=== PATIENT | male | born 1970 | race Caucasian/White ===

== ENCOUNTER → 2016-11-06 | Outpatient (CLI) | payer BC, OTHER ==
[~2016-11-06] MED LIST: ALLO100T PO; CARV25TA2 PO; CRDCD120 PO; GLCSR500 PO; INSDGIPEN SC; LISI-787 PO; RCPAV1 IV
[2016-11-06 12:59] LABS: HEMATOCRIT 40.8 % (42-52); MEAN CELL VOLUME 91.1 fL (80-100); MEAN CORPUSCULAR HGB CONC 34.1 g/dl (32-36); MEAN PLATELET VOLUME 9.6 fL (7.4-10.4); PLATELET COUNT 363 K/uL (130-400); RED BLOOD COUNT 4.48 M/uL (4.7-6.1); WHITE BLOOD COUNT 7.37 K/uL (4.8-10.8)
[2016-11-06 13:26] LABS: ALB/GLOB RATIO 0.5 (0.9-2); ALKALINE PHOSPHATASE 100 U/L (45-117); ALT/SGPT 40 U/L (12-78); AST/SGOT 31 U/L (15-37); BLOOD UREA NITROGEN 18 mg/dl (7-18); BUN/CREATININE RATIO 26.5 (10-20); C-REACTIVE PROTEIN 1.92 mg/dl (0-0.29); CALCIUM 8.7 mg/dl (8.5-10.1); CARBON DIOXIDE 25 mmol/L (21-32); CHLORIDE 100 mmol/L (98-107); CREATININE 0.66 mg/dl (0.60-1.40); GLUCOSE 218 mg/dl (70-99); POTASSIUM 4.4 mmol/L (3.5-5.1); SODIUM 135 mmol/L (136-145)
--- NOTE | 2016-11-07 12:55 | CODING QUERY NO DIAGNOSIS ---
TREATMENT RENDERED WITHOUT A DIAGNOSIS 72 To promote full compliance with coding requirements relating to patient care, physician participation is requested in all cases of admeasurer uncertainty. Please assist us with providing a diagnosis/symptom for the test(s) below: A diagnosis/symptom was not documented on your Order. A valid diagnosis/symptom is required to bill all insurances. Please remember that we are unable to code a diagnosis of rule out, probable, possible, questionable, or suspected. DOS 11/06/16 Tests that require a diagnosis: * CBC W/O DIFF DIAGNOSIS: * COMP METABOLIC DIAGNOSIS: * C-REACTIVE PROTEIN DIAGNOSIS: * ESR DIAGNOSIS: Provider Signature: Date: Thank you Taylor Lozada Health Information Management Once completed, please kindly fax back to [phone] For questions please call [phone]
== END | disposition home or self-care (01) ==
LOC: C.LABSPEC 12:19
PROVIDERS: ATTEND Internal Medicine Infectious Disease
DX: Z00.00 Encounter for general adult medical examination without abnormal findings (principal)

== ENCOUNTER → 2016-11-12 | Outpatient (CLI) | payer BC, OTHER ==
[2016-11-12 13:18] LABS: HEMATOCRIT 40.8 % (42-52); MEAN CELL VOLUME 89.3 fL (80-100); MEAN CORPUSCULAR HEMOGLOBIN 30.2 pg (25-34); MEAN CORPUSCULAR HGB CONC 33.8 g/dl (32-36); MEAN PLATELET VOLUME 10.2 fL (7.4-10.4); PLATELET COUNT 281 K/uL (130-400); RED BLOOD COUNT 4.57 M/uL (4.7-6.1); WHITE BLOOD COUNT 8.69 K/uL (4.8-10.8)
[2016-11-12 13:38] LABS: ALKALINE PHOSPHATASE 97 U/L (45-117); ALT/SGPT 42 U/L (12-78); AST/SGOT 29 U/L (15-37); BLOOD UREA NITROGEN 13 mg/dl (7-18); BUN/CREATININE RATIO 22.4 (10-20); CALCIUM 8.5 mg/dl (8.5-10.1); CARBON DIOXIDE 26 mmol/L (21-32); CHLORIDE 100 mmol/L (98-107); GLUCOSE 208 mg/dl (70-99); SODIUM 136 mmol/L (136-145)
[2016-11-12 13:40] LABS: ALB/GLOB RATIO 0.7 (0.9-2); C-REACTIVE PROTEIN 1.05 mg/dl (0-0.29)
--- NOTE | 2016-11-23 13:53 | CODING QUERY NO DIAGNOSIS ---
: 1970 TREATMENT RENDERED WITHOUT A DIAGNOSIS To promote full compliance with coding requirements relating to patient care, physician participation is requested in all cases of auto customize painter uncertainty. Please assist us with providing a diagnosis/symptom for the test(s) below: A diagnosis/symptom was not documented on your Order. A valid diagnosis/symptom is required to bill all insurances. Please remember that we are unable to code a diagnosis of rule out, probable, possible, questionable, or suspected. Tests that require a diagnosis: * CBC W/O DIFF DOS: 11/12/16 DIAGNOSIS: * COMPREHENSIVE METABO DOS: 11/12/16 DIAGNOSIS: * C-REACTIVE PROTEIN DOS: 11/12/16 DIAGNOSIS: * ERYTHROCYTE SEDIMENT DOS: 11/12/16 DIAGNOSIS: Provider Signature: Date: Thank you Amy Pena [employer] Information Management Once completed, please kindly fax back to [phone] For questions please call [phone]
== END | disposition home or self-care (01) ==
LOC: C.LABSPEC 12:23
PROVIDERS: ATTEND Internal Medicine Infectious Disease
DX: A41.9 Sepsis, unspecified organism (principal); J18.9 Pneumonia, unspecified organism; B95.3 Streptococcus pneumoniae as the cause of diseases classified elsewhere

== ENCOUNTER → 2016-12-04 | Outpatient (CLI) | payer BC, OTHER ==
[2016-12-04 12:42] LABS: RATIO 116.7 mcg/mg (0-30.0)
== END | disposition home or self-care (01) ==
LOC: C.LAB1850 10:40
PROVIDERS: ATTEND Internal Medicine Endocrinology, Diabetes & Metabolism
DX: E11.65 Type 2 diabetes mellitus with hyperglycemia (principal)

== ENCOUNTER 2020-04-15 13:48 | Inpatient (IN) ==
[2020-04-15 14:26] LABS: Basophils # (auto) 0.02 K/uL (0-0.2); Basophils % (auto) 0.4 %; Eosinophils # (auto) 0.08 K/uL (0-0.5); Eosinophils % (auto) 1.4 %; Hematocrit (blood only) 57.4 % (42-52); Hemoglobin 17.9 g/dL (14.0-18.0); Immature Granulocytes # (auto) 0.01 K/uL (0.00-0.02); Immature Granulocytes % (auto) 0.2 %; Lymphocytes % (auto) 28.2 %; Mean Corpuscular Hemoglobin 31.3 pg (25-34); Mean Corpuscular Volume 100.3 fL (80-100); Mean Platelet Volume 10.3 fL (7.4-10.4); Monocytes # (auto) 0.73 K/uL (0.11-0.59); Monocytes % (auto) 12.9 %; Neutrophils # (auto) 3.23 K/uL (1.4-6.5); Neutrophils % (auto) 56.9 %; Platelet Count 159 K/uL (130-400); RDW Coefficient of Variation 14.7 % (11.5-14.5); Red Blood Count 5.72 M/uL (4.7-6.1); White Blood Count 5.67 K/uL (4.8-10.8)
[2020-04-15 14:35] LABS: Mean Corpuscular Hgb Conc 31.2 g/dL (32-36)
--- NOTE | 2020-04-15 14:50 | Emergency Department Note ---
Impression & Plan Hypoxia, CHF (congestive heart failure) ED Provider Note NAME: STARR LINDA AGE: 49 SEX: M : 1970 ARRIVES VIA: Walk-In INFORMANT: Patient ED PROVIDER(S): Harley Colon DO CHIEF COMPLAINT: Shortness of breath HPI: Patient is a 49-year-old male with a past medical history of hypertension, CVA that presents the ER for shortness of breath and swelling. He notes that the shortness of breath and swelling has started about 2 weeks ago. Has been getting progressively worse. He denies any history of CHF. He is more short of breath with laying down and movement. Notes that rest does improve his symptoms. He started Lasix about 2 weeks ago without significant improvement. He was referred in by his PCP today. Denies any other exacerbating or remitting factors. ROS: See above HPI for pertinent positives & negatives. A total of 10 systems reviewed and were otherwise negative. PAST MEDICAL HISTORY:See Below PAST SURGICAL HISTORY:See Below FAMILY HISTORY:See Below SOCIAL HISTORY:See Below HOME MEDICATIONS:See Below ALLERGIES:See Below VITALS:See Below PHYSICAL EXAMINATION: GENERAL: Sitting up in bed, alert, ill-appearing, dyspneic with conversation on 4 L nasal cannula EYE EXAM: normal conjunctiva. OROPHARYNX: no exudate, no erythema, lips, buccal mucosa, and tongue normal and mucous membranes are moist NECK: supple, no nuchal rigidity, no adenopathy, non-tender LUNGS: Clear to auscultation. Normal chest wall mechanics HEART: no murmurs, S1 normal and S2 normal ABDOMEN: abdomen soft, non-tender, normo-active bowel sounds, no masses, no rebound or guarding. BACK: Back is symmetrical on inspection and there is no deformity, no midline tenderness, no CVA tenderness. SKIN: no rashes and no bruising UPPER EXTREMITIES: upper extremities are grossly normal. LOWER EXTREMITIES: Pitting edema tracking through bilateral lower extremities up to abdomen NEURO EXAM: Normal sensorium, cranial nerves II-XII grossly intact, normal speec h, no gross weakness of arms, no gross weakness of legs. MEDICAL DECISION MAKING: Patient is a 49-year-old male that presents the ER for shortness of breath. This is been worsening for the past 2 weeks. On exam he has diffuse pitting edema. He is hypoxic at 84% on room air. He was placed on 4 L nasal cannula. Labs show no significant leukocytosis or anemia. INR was unremarkable. BMP with a slightly elevated CO2 at 39. LFTs bilirubin and troponin was negative. proBNP was elevated at 1100.. Lipase and TSH were unremarkable. Chest x-ray with a likely hiatal hernia and CHF. Patient was given IV Lasix. He was updated bedside. Discussed with the hospitalist admitted for further work-up of his hypoxia and CHF. Triage Nursing notes reviewed. Prior medical records reviewed Vital Signs: reviewed and remarkable for hypoxia Differential diagnosis: Differential diagnoses includes but is not limited to pneumonia, bronchitis, COPD/Asthma exacerbation, pneumothorax, pulmonary embolism, congestive heart f ailure, acute coronary syndrome ER treatment provided: See below Diagnostics interpreted by me: ECG: Sinus rhythm rate 85 First-degree AV block Inferior Q waves No PVCs Lateral Q waves Normal QTC Cardiac Monitoring: An order was placed for continuous cardiac monitoring. The monitor shows a rate of 89 with sinus rhythm. Laboratory studies: As stated above and show below. Imaging studies: Double AP upright 1 view of the chest shows hiatal hernia and CHF. Consultation(s): Discussed with [facility] hospitalist for admission. ED COURSE: Procedures: none Critical Care: I have personally spent 45 minutes of critical care time in the direct management of this patient. This includes bedside care, interpretation of diagnostic studies, and testing, discussion with consultants, patient, and family members, and other required patient management activities. This 45 minutes is in excess of all separately billable procedures. Past Med/Surg History Medical History (Updated 04/15/20 @ 19:22 by Harley Colon DO) Alcohol abuse CVA (cerebral vascular accident) (Chronic) DM type 2 (diabetes mellitus, type 2) (Chronic) Dysphagia (Chronic) Gout (Chronic) HTN (hypertension) Hypertension (Chronic) Vertebral artery stenosis (Chronic) Surgical History History of carpal tunnel surgery History of lung surgery History of total left knee replacement Family History (Updated 04/15/20 @ 16:04 by Jayla Gilbert PA-C) Sister Stroke Mother Myocardial infarction, Onset Age: 70 Diabetes Father Myocardial infarction Diabetes Social History (Updated 04/15/20 @ 16:04 by Jayla Gilbert PA-C) Preferred Language: Upper Sorbian Communication Ability: Effective Visual Impairment: Limited Convenience Store Manager Required: No Beliefs That Will Affect Care: None marital status: Current Living Situation: Spouse and Family Other Information That Helps Us Care for You: No Feels Safe at Home: Yes Safety Concerns: Feels Safe At This Time Smoking Status: Never smoker Tobacco Type: cigars ; Second Hand Exposure: No ; Hx Alcohol Use: Yes (None since stroke about 3 weeks ago) Alcohol type: beer Alcohol Intake Frequency: Daily Hx Substance Use: No Allergies Allergies Allergy/AdvReac Type Severity Reaction Status Date / Time No Known Allergies Allergy Verified 04/15/20 15:14 Home Meds Home Medications Medication Instructions Recorded Confirmed Lantus Solostar U-100 Insulin 60 unit SUBCUT BID 08/22/18 04/15/20 insulin aspart U-100 [Novolog See Rx Instructions .ROUTE .COMPLEX 09/10/18 04/15/20 Flexpen U-100 Insulin] metformin 1,000 mg PO BIDM 09/10/18 04/15/20 Jardiance 25 mg PO QAM 12/24/18 04/15/20 atorvastatin [Lipitor] 80 mg PO HS 12/24/18 04/15/20 carvedilol 12.5 mg PO BID 12/24/18 04/15/20 clopidogrel [Plavix] 75 mg PO QAM 12/24/18 04/15/20 allopurinol 300 mg PO QAM 04/15/20 04/15/20 furosemide 40 mg PO QAM 04/15/20 04/15/20 insulin aspart U-100 See Rx Instructions .ROUTE .COMPLEX 04/15/20 04/15/20 lisinopril 20 mg PO QAM 04/15/20 04/15/20 potassium chloride 10 meq PO QAM 04/15/20 04/15/20 Results & Data (ED) Vital Signs Vital Signs - 24 hr 04/15/20 13:49 04/15/20 14:21 Temperature 36.9 C Temperature Source Oral Pulse Rate 88 Respiratory Rate 22 Respiratory Effort / Characteristics Non-Labored Spontaneous Respiratory Depth Normal Respiratory Pattern Regular Blood Pressure 133/89 Blood Pressure Mean 103 Blood Pressure Position Lying Pulse Oximetry 83 L 83 L Oxygen Delivery Method Room Air Room Air Nasal Cannula Oxygen Flow Rate 3 Sepsis Recent Fever Within 48 Hours No Sepsis New/Unexplained Change in Mental Status No Sepsis Action Taken by Nursing No Action Required Oxygen Flow Rate - Titration 3 Pulse Oximetry Post Tiitration 98 Laboratory Data Result diagrams: 04/15/20 14:15 04/15/20 14:15 Lab Results 04/15/20 04/15/20 04/15/20 Range/Units 14:15 14:15 14:15 WBC 5.67 (4.8-10.8) K/uL RBC 5.72 (4.7-6.1) M/uL Hgb 17.9 (14.0-18.0) g/dL Hct 57.4 H (42-52) % MCV 100.3 H (80-100) fL MCH 31.3 (25-34) pg MCHC 31.2 L (32-36) g/dL RDW Std Deviation 54.0 H (36.4-46.3) fL RDW Coeff of Antoni 14.7 H (11.5-14.5) % Plt Count 159 (130-400) K/uL MPV 10.3 (7.4-10.4) fL Immature Gran % (Auto) 0.2 % Neut % (Auto) 56.9 % Lymph % (Auto) 28.2 % [place] % (Auto) 12.9 % Eos % (Auto) 1.4 % Baso % (Auto) 0.4 % Immature Gran # (Auto) 0.01 (0.00-0.02) K/uL Neut # (Auto) 3.23 (1.4-6.5) K/uL Lymph # (Auto) 1.60 (1.2-3.4) K/uL [place] # (Auto) 0.73 H (0.11-0.59) K/uL Eos # (Auto) 0.08 (0-0.5) K/uL Baso # (Auto) 0.02 (0-0.2) K/uL PT Cancelled INR Cancelled APTT Cancelled PTT Ratio Cancelled Sodium 138 (136-145) mmol/L Potassium 4.7 (3.5-5.1) mmol/L Chloride 96 L (98-107) mmol/L Carbon Dioxide 39 H (21-32) mmol/L Anion Gap 4.0 (3-11) BUN 23 H (7-18) mg/dl Creatinine 0.88 (0.6-1.4) mg/dl Est Cr Clr Drug Dosing 138.9 ml/min Est GFR ( Amer) 117.7 Est GFR (Non-Af Amer) 101.6 BUN/Creatinine Ratio 26.7 H (10-20) Glucose 158 H (70-99) mg/dl Calcium 9.0 (8.5-10.1) mg/dl Total Bilirubin 0.3 (0.2-1) mg/dl AST 49 H (15-37) U/L ALT 70 (12-78) U/L Alkaline Phosphatase 107 (45-117) U/L Troponin I < 0.015 (0-0.045) ng/ml NT-Pro-B Natriuret Pep 1132 H (0-450) pg/ml Total Protein 6.9 (6.4-8.2) gm/dl Albumin 3.0 L (3.4-5.0) gm/dl Globulin 3.9 (2.5-4.0) gm/dl Albumin/Globulin Ratio 0.8 L (0.9-2) Lipase 86 (73-393) U/L TSH 2.110 (0.300-4.500) uIu/ml Specimen Hemolysis 04/15/20 Range/Units 14:50 WBC (4.8-10.8) K/uL RBC (4.7-6.1) M/uL Hgb (14.0-18.0) g/dL Hct (42-52) % MCV (80-100) fL MCH (25-34) pg MCHC (32-36) g/dL RDW Std Deviation (36.4-46.3) fL RDW Coeff of Antoni (11.5-14.5) % Plt Count (130-400) K/uL MPV (7.4-10.4) fL Immature Gran % (Auto) % Neut % (Auto) % Lymph % (Auto) % [place] % (Auto) % Eos % (Auto) % Baso % (Auto) % Immature Gran # (Auto) (0.00-0.02) K/uL Neut # (Auto) (1.4-6.5) K/uL Lymph # (Auto) (1.2-3.4) K/uL [place] # (Auto) (0.11-0.59) K/uL Eos # (Auto) (0-0.5) K/uL Baso # (Auto) (0-0.2) K/uL PT 11.6 INR 1.1 APTT 22.8 PTT Ratio 0.8 Sodium (136-145) mmol/L Potassium (3.5-5.1) mmol/L Chloride (98-107) mmol/L Carbon Dioxide (21-32) mmol/L Anion Gap (3-11) BUN (7-18) mg/dl Creatinine (0.6-1.4) mg/dl Est Cr Clr Drug Dosing ml/min Est GFR ( Amer) Est GFR (Non-Af Amer) BUN/Creatinine Ratio (10-20) Glucose (70-99) mg/dl Calcium (8.5-10.1) mg/dl Total Bilirubin (0.2-1) mg/dl AST (15-37) U/L ALT (12-78) U/L Alkaline Phosphatase (45-117) U/L Troponin I (0-0.045) ng/ml NT-Pro-B Natriuret Pep (0-450) pg/ml Total Protein (6.4-8.2) gm/dl Albumin (3.4-5.0) gm/dl Globulin (2.5-4.0) gm/dl Albumin/Globulin Ratio (0.9-2) Lipase (73-393) U/L TSH (0.300-4.500) uIu/ml Specimen Hemolysis Administered Medications Carvedilol (Coreg) 12.5 mg PO BID17 KATHRYN Stop: 05/15/20 17:59 Last Admin: 04/15/20 17:58 Dose: 12.5 mg Documented by: [id number] Insulin Aspart (Novolog Flexpen) 0 units SC ACHS KATHRYN Stop: 05/15/20 17:29 Last Admin: 04/15/20 17:57 Dose: 12 units Documented by: [id number] Cosigned by: [id number] Discontinued Medications Furosemide (Lasix) 40 mg IV NOW STA Stop: 04/15/20 15:30 Last Admin: 04/15/20 16:18 Dose: 40 mg Documented by: [id number] Discharge Plan Visit Data *Final* Discharge Date/Time: 04/15/20 16:13 Chief Complaint: Referred by Doctor Stated Complaint: REF - FILLED WITH FLUID - O2 AT 85 ED Provider: Harley Colon Discharge Problem: Hypoxia, CHF (congestive heart failure) Patient Disposition: Admitted As Inpatient Discharge Instructions Interventions: ED Discharge Assessment Last Done: 04/15/20 16:13 Discharge Problem: CHF (congestive heart failure) Qualifiers: Heart failure type: unspecified Heart failure chronicity: unspecified Qualified Code(s): I50.9 - Heart failure, unspecified
[2020-04-15 14:54] LABS: Alanine Aminotransferase 70 U/L (12-78); Albumin Globulin Ratio 0.8 (0.9-2); Alkaline Phosphatase 107 U/L (45-117); Aspartate Aminotransferase 49 U/L (15-37); BUN Creatinine Ratio 26.7 (10-20); Bilirubin,Total 0.3 mg/dl (0.2-1); Blood Urea Nitrogen 23 mg/dl (7-18); Carbon Dioxide 39 mmol/L (21-32); Chloride 96 mmol/L (98-107); Creatinine Clr Calc Pharmacy 138.9 ml/min; Est GFR (African American) 117.7; Est GFR (Non-African American) 101.6; Globulin 3.9 gm/dl (2.5-4.0); Glucose 158 mg/dl (70-99); Lipase 86 U/L (73-393); NT Pro B Type Natriuretic Pept 1132 pg/ml (0-450); Potassium 4.7 mmol/L (3.5-5.1); Sodium 138 mmol/L (136-145); Total Protein 6.9 gm/dl (6.4-8.2); Troponin I < 0.015 ng/ml (0-0.045)
--- NOTE | 2020-04-15 14:55 | XRay Report ---
XR chest 1V portable CLINICAL HISTORY: Chest pain. COMPARISON STUDY: September 10, 2018. FINDINGS: A gas-filled structure within left upper quadrant is noted. Lung volumes are diminished. Th ere is elevation of left hemidiaphragm with suspected left basilar atelectasis. Pulmonary vasculature is prominent. Enlargement of the cardiac silhouette is noted. This is accentuated on this hypoventil atory study. IMPRESSION: 1. Low lung volumes with suspected left basilar atelectasis. 2. Elevation of the left hemidiaphragm with prominent gas-filled structure within left upper quadrant which reflects the stomach or less likely colon. 3. Apparent pulmonary vascular congestion which could be technical. ACT 112: Negative or not required by law. Electronically signed by: Alejo Lord M.D. 04/15/2020 2:54 PM
[2020-04-15 15:14] LABS: INR 1.1 (0.9-1.1); Partial Thromboplastin Ratio 0.8; Partial Thromboplastin Time 22.8 Seconds (21.0-31.0); Prothrombin Time 11.6 Seconds (9.0-12.0)
[2020-04-15] MEDS ORDERED: FUROSEMIDE 40 MG/4 ML VIAL IV STA (15:29)
--- NOTE | 2020-04-15 16:00 | History & Physical Report ---
Date of Service April 15, 2020 Assessment & Plan (1) Acute CHF: This is a 49-year-old male who has significant PMH of T2DM, HTN, HLD, history of CVA Wallenberg syndrome, gout, EtOH abuse, fatty liver disease who presents to ED secondary to worsening shortness of breath and lower extremity edema x2 weeks. In ED patient was hypoxic requiring 3 L of O2 to maintain adequate saturation. Hemodynamics were otherwise stable. Lab work notable for elevated proBNP 1132, troponin WNL, K4.7, BUN 23, creatinine 0.88. Chest x-ray revealed pulmonary vascular congestion, low lung volumes with likely left basilar atelectasis. In ED he received 40 mg IV Lasix. admit to PCU Start Lasix IV 40mg BID - titrate obtain echocardiogram ( last echo 08/2018 revealed normal LVEF, No RWMA, moderate concentric LVH, grade I diastolic dysfunction) Strict I and O, Daily weights Heart healthy, low Na diet, FR 1800cc Consult cardiology - pt follows [facility] Replace electrolytes as needed Continue Coreg and lisinopril (2) Atelectasis of left lung: CXR with LLL atelectasis, crackles on exam encourage incentive spirometry q1hwa (3) DM type 2 (diabetes mellitus, type 2): Last A1c 8.7 on 04/02/2020 Uncontrolled T2DM Patient on Lantus 60 units twice daily and NovoLog sliding scale Consult glycemic pharmacy, appreciate their management (4) Hypertension: Blood pressure stable Continue Coreg, lisinopril Monitor (5) CVA (cerebral vascular accident): History of Left medulla CVA, Wallenberg syndrome in 08/2018 Continue Plavix and statin No motor deficits, residual voice deficit (6) Alcohol abuse: History of daily alcohol use AWSS scale to monitor for withdrawal sx prn lorazepam (7) Gout: Continue allopurinol (8) DVT prophylaxis: SQ Heparin Disposition: admit to PCU Follow up: PCP Dr. Mccarthy upon discharge Pt was seen and examined in collaboration with Dr. Alvarez, please see addendum History of Present Illness Chief Complaint: Shortness of breath and lower extremity edema x2 weeks. Primary Care Provider: Ignacia Mccarthy, DO This is a 49-year-old male who has significant PMH of T2DM, HTN, HLD, history of CVA Wallenberg syndrome, gout, EtOH abuse, fatty liver disease who presents to ED secondary to worsening shortness of breath and lower extremity edema x2 weeks. Approximately 2 weeks ago he noted increasing lower extremity swelling. Swelling has now extended up into abdominal wall. He feels overall abdominal fullness and bloating. Does complain of early satiety. He also complains of shortness of breath with exertion and orthopnea. He denies any other recent illness, fever, chills, sweats, lightheadedness, dizziness, chest pain, palpitations, cough, nausea, vomiting, abdominal pain. He has noticed decreased urination but no urgency, dysuria, hematuria, melena, hematochezia or diarrhea. Approximately 1 week ago he was started on Lasix 40 mg daily and he did not note a significant increase in urination. He does not monitor his weight on a regular basis. He has also noticed increased redness on bilateral lower extremities with increasing edema. He denies prior history of CHF. He did sustain CVA involving left medulla on 08/22/2018 in which he underwent loop recorder placement. He does follow [facility] cardiology. His device has been interrogated and has not noted any significant arrhythmias except for a 10- second run of SVT, no A. fib. He does drink 1-2 beers daily. In ED patient was hypoxic requiring 3 L of O2 to maintain adequate saturation. Hemodynamics were otherwise stable. Lab work notable for elevated proBNP 1132, troponin WNL, K4.7, BUN 23, creatinine 0.88. Chest x-ray revealed pulmonary vascular congestion, low lung volumes with likely left basilar atelectasis. In ED he received 40 mg IV Lasix. Allergies Allergy/AdvReac Type Severity Reaction Status Date / Time No Known Allergies Allergy Verified 04/15/20 15:14 Home Medications Home Medications Medication Instructions Recorded Confirmed Type Lantus Solostar U-100 Insulin 60 unit SUBCUT BID 08/22/18 04/15/20 History insulin aspart U-100 [Novolog See Rx Instructions .ROUTE .COMPLEX 09/10/18 04/15/20 History Flexpen U-100 Insulin] metformin 1,000 mg PO BIDM 09/10/18 04/15/20 History Jardiance 25 mg PO QAM 12/24/18 04/15/20 History atorvastatin [Lipitor] 80 mg PO HS 12/24/18 04/15/20 History carvedilol 12.5 mg PO BID 12/24/18 04/15/20 History clopidogrel [Plavix] 75 mg PO QAM 12/24/18 04/15/20 History allopurinol 300 mg PO QAM 04/15/20 04/15/20 History furosemide 40 mg PO QAM 04/15/20 04/15/20 History insulin aspart U-100 See Rx Instructions .ROUTE .COMPLEX 04/15/20 04/15/20 History lisinopril 20 mg PO QAM 04/15/20 04/15/20 History potassium chloride 10 meq PO QAM 04/15/20 04/15/20 History Past Med/Surg History Medical History (Updated 04/15/20 @ 16:09 by Jayla Gilbert PA-C) Alcohol abuse CVA (cerebral vascular accident) (Chronic) DM type 2 (diabetes mellitus, type 2) (Chronic) Dysphagia (Chronic) Gout (Chronic) HTN (hypertension) Hypertension (Chronic) Vertebral artery stenosis (Chronic) Surgical History History of carpal tunnel surgery History of lung surgery History of total left knee replacement Family History (Updated 04/15/20 @ 16:04 by Jayla Gilbert PA-C) Sister Stroke Mother Myocardial infarction, Onset Age: 70 Diabetes Father Myocardial infarction Diabetes Social History (Updated 04/15/20 @ 16:04 by Jayla Gilbert PA-C) Preferred Language: Serbian Communication Ability: Effective Visual Impairment: Limited Credit Officer Required: No Beliefs That Will Affect Care: None marital status: Current Living Situation: Spouse and Family Other Information That Helps Us Care for You: No Feels Safe at Home: Yes Safety Concerns: Feels Safe At This Time Smoking Status: Never smoker Tobacco Type: cigars ; Second Hand Exposure: No ; Hx Alcohol Use: Yes (None since stroke about 3 weeks ago) Alcohol type: beer Alcohol Intake Frequency: Daily Hx Substance Use: No Review of Systems Review of Systems: All systems reviewed & are unremarkable except as noted in HPI & below Physical Exam Physical Exam: Please see attending addendum for details regarding physical exam. Results & Data Results & Data (MN) Vital Signs (Past 12 Hours) Vital Signs Temp Pulse Resp BP Pulse Ox 04/15/20 14:21 83 L 04/15/20 13:49 36.9 C 88 22 133/89 83 L Laboratory Results Short CBC 04/15/20 Range/Units 14:15 WBC 5.67 (4.8-10.8) K/uL Hgb 17.9 (14.0-18.0) g/dL Hct 57.4 H (42-52) % Plt Count 159 (130-400) K/uL BMP 04/15/20 14:15 Sodium 138 Potassium 4.7 Chloride 96 L Carbon Dioxide 39 H BUN 23 H Creatinine 0.88 Glucose 158 H Calcium 9.0 Cardiac Enzymes 04/15/20 Range/Units 14:15 Troponin I < 0.015 (0-0.045) ng/ml Liver Function 04/15/20 Range/Units 14:15 Total Bilirubin 0.3 (0.2-1) mg/dl AST 49 H (15-37) U/L ALT 70 (12-78) U/L Alkaline Phosphatase 107 (45-117) U/L Albumin 3.0 L (3.4-5.0) gm/dl Diagnostic Findings CXR:IMPRESSION: 1. Low lung volumes with suspected left basilar atelectasis. 2. Elevation of the left hemidiaphragm with prominent gas-filled structure within left upper quadrant which reflects the stomach or less likely colon. 3. Apparent pulmonary vascular congestion which could be technical. ECG Rate (beats per minute): 85 Rhythm: normal sinus Findings: + 1st degree AV block and + Q waves (Inferior) Code Status & VTE Plan Code Status Full Code VTE Prophylaxis Plan VTE Prophylaxis will be ordered: Yes Supervising Physician Co-Signing Physician Notes History and physical exam performed by me. History significant for 49-year-old man with history of type 2 diabetes, hypertension, hyperlipidemia, CVA Wallenberg syndrome, gout who presented with worsening shortness of breath and bilateral leg swelling over the past 2 weeks. History also significant for easy satiety, orthopnea [reports difficulty sle eping on the back over the past 2 weeks like he used to, now sleeps on the side due to shortness of breath], reduced urine output Physical exam, General: Obese, no acute distress Eyes: PERRL, conjunctivae normal, not pale, anicteric sclerae, EOM intact bilaterally ENMT: External ear and nose normal, oropharynx normal Neck: Normal visual inspection, no tracheal deviation, no swelling noted Respiratory: Normal respiratory effort, no respiratory distress, reduced breath sounds lung bases Cardiovascular: Pulse is RRR S1 S2, + pedal edema Gastrointestinal (Abdomen): Abdomen is mildly distended, soft, subcutaneous edema over lower half of abdominal wall, non-tender to palpation, no guarding, no palpable hepatosplenomegaly, normal bowel sounds Musculoskeletal: No cyanosis or clubbing,++Bilateral leg edema Skin: Bilateral stasis dermatitis changes Neurologic: Alert and oriented x 3, No focal weakness, sensation grossly intact Psychiatric: Euthymic affect, no depressed affect Lab results significant for bicarb of 39, BNP of 1132 Chest x-ray showed low lung volumes with suspected left basilar atelectasis -Shortness of breath, leg edema Likely new onset congestive heart failure. Previous echo from 2018 reported EF of 50 to 55%, grade 1 diastolic dysfunction, moderate concentric left ventricular hypertrophy. IV Lasix Monitor I's and O's Monitor electrolytes with diuretics Get 2D echo Cardiology consult Telemetry monitoring for now Continue home Coreg and lisinopril for now Carb controlled heart healthy diet with fluid restriction Incentive spirometry Hold oral antidiabetic Get A1c Insulin per protocol Other plans as detailed in Jayla Gilbert PA-C's note
[2020-04-15] MEDS ORDERED: POLYETHYLENE (MIRALAX) 17 GM PACK PO PRN (17:06)
[2020-04-15] MEDS ORDERED: GLUCAGON FOR INJ 1 MG VIAL SQ PRN (17:06)
[2020-04-15] MEDS ORDERED: GLUCOSE 40% GEL 15 GM TUBE PO PRN (17:06)
[2020-04-15] MEDS ORDERED: LORazepam 1 MG TAB PO PRN (17:06)
[2020-04-15] MEDS ORDERED: ONDANSETRON INJ 2 MG/ML 2 ML VIAL IV PRN (17:06)
[2020-04-15] MEDS ORDERED: CARBOHYDRATES FOR HYPOGLYCEMIA PO PRN (17:06)
[2020-04-15] MEDS ORDERED: ACETAMINOPHEN 325 MG TAB PO PRN (17:06)
[2020-04-15] MEDS ORDERED: DEXTROSE 50% 50 ML SYRINGE IV PRN (17:06)
[2020-04-15] MEDS ORDERED: GLUCOSE 10 TABS/TUBE PO PRN (17:06)
[2020-04-15] MEDS ORDERED: PHARMACY GLYCEMIC MGMT CONSULT PRN (17:10)
[2020-04-15] MEDS: INSULIN ASPART 100 UNITS/ML 3 ML PEN SC SCH ×2 (17:57→19:56)
[2020-04-15] MEDS: carvediloL 12.5 MG TAB PO SCH (17:58)
--- NOTE | 2020-04-15 19:45 | Pharmacy Report ---
Glycemic Control Consultation - Date of Service April 15, 2020 - Scope Scope: Glycemic Pharmacist consulted for glycemic control and to write orders per [facility] inpatient glycemic control protocol. - Objective Weight: 136.6 kg Accuchecks BSG (last 24hrs): 04/15/20 04/15/20 04/15/20 14:15 17:07 19:31 Glucose 158 H POC Glucose 104 H 110 H Laboratory Data (last 24hrs): 04/15/20 14:15 Potassium 4.7 Carbon Dioxide 39 H Anion Gap 4.0 Creatinine 0.88 Est Cr Clr Drug Dosing 138.9 - Recent Pertinent Medications Outpatient Anti-diabetic Regimen: * Lantus 60 units BID * Novolog 25 units with breakfast, 28 units with lunch, 32 units with dinner, in addition to correction factor of 18 for BSG over 130 mg/dL - up to 120 units per day. * A1c pending for tomorrow - Assessment & Plan Assessment & Plan: ASSESSMENT: * WS is a 49 year old male admitted on 04/15/20 with worsening shortness of breath and lower extremity edema secondary to exacerbation of CHF * BSG at time of consult is 104 mg/dL * At this point with limited data - will continue home basal insulin and use aggressive Novolog parameters based on home Novolog doses PLAN FOR INPATIENT GLYCEMIC CONTROL: * Holding outpatient oral diabetes medications * Basal insulin * Lantus 60 units SQ BID * Bolus insulin * NovoLog per scale ACHS or Q6hrs while NPO * Goal Range: Low 110 mg/dL - High 140 mg/dL * Correction Factor: 10 mg/dL/unit * Nutritional / Prandial insulin per carb ratio of 1 unit per 3 grams CHO consumed * 0200 check with same parameters * Please note that the plan above was derived based on current level of insulin resistance and hospital stress. These recommendations are appropriate for inpatient admission only. Plan of care upon discharge will need to be reassessed to avoid potential outpatient hypo/hyperglycemia. Thank you.
[2020-04-15] MEDS: FUROSEMIDE 40 MG in SYRINGE 0 ML IV SCH (19:54)
[2020-04-15] MEDS: ATORVASTATIN 40 MG TAB PO SCH (19:54)
[2020-04-15] MEDS ORDERED: FUROSEMIDE 40 MG/4 ML VIAL IV SCH (20:00)
[2020-04-15] MEDS ORDERED: INSULIN GLARGINE 100 UNIT/ML VIAL SC SCH ×2 (21:00)
[2020-04-15] MEDS: HEPARIN SOD 5,000 UNIT/0.5 ML VIAL SQ SCH (22:04)
[2020-04-16 00:38] LABS: iSTAT Allen Test Pass; iSTAT Arterial Blood Gas HCO3 43 meg/L (19-24); iSTAT Arterial Blood Gas pCO2 95 mmHg (35-46); iSTAT Arterial Blood Gas pH 7.26 (7.35-7.45); iSTAT Arterial Blood Gas pO2 63 mmHg (80-95); iSTAT Carbon Dioxide > 40 mmol/L (24-31); iSTAT Site L Radial
[2020-04-16 01:28] LABS: iSTAT Allen Test Pass; iSTAT Art Bld Gas pCO2 Correct 101 mmHg (35-46); iSTAT Art Bld Gas pH Corrected 7.264 (7.35-7.45); iSTAT Arterial Blood Gas HCO3 45 meg/L (19-24); iSTAT Arterial Blood Gas pCO2 98 mmHg (35-46); iSTAT Arterial Blood Gas pH 7.27 (7.35-7.45); iSTAT Arterial Blood Gas pO2 55 mmHg (80-95); iSTAT Arterial Blood Gas pO2 C 57; iSTAT Carbon Dioxide > 40 mmol/L (24-31); iSTAT Hematocrit 55 % (42-52); iSTAT Hemoglobin 18.7 g/dl (14.0-18.0); iSTAT Potassium 4.4 mmol/L (3.3-5.0); iSTAT Site L Radial; iSTAT Sodium 137 mmol/L (135-144)
[2020-04-16] MEDS ORDERED: RAPID SEQUENCE INDUCTION BAG ONE (01:51)
[2020-04-16] MEDS ORDERED: INSULIN ASPART 100 UNITS/ML 3 ML PEN SC SCH ×2 (02:00→12:00)
[2020-04-16] MEDS ORDERED: PROPOFOL BOLUS FROM BAG IV PRN (02:31)
[2020-04-16] MEDS ORDERED: STAT IV Infusion **Titration per Protocol STA ×2 (02:31→10:30)
[2020-04-16] MEDS ORDERED: PROPOFOL IV EMULSION 10 MG/ML 100 ML VIAL IV ONE (02:39)
[2020-04-16] MEDS: propofoL 1,000 MG/100 ML VIAL IV SCH ×7 (02:56→22:23)
[2020-04-16 02:59] LABS: Hemoglobin 17.2 g/dL (14.0-18.0); Mean Corpuscular Hemoglobin 31.2 pg (25-34); Mean Corpuscular Volume 101.6 fL (80-100); Mean Platelet Volume 10.2 fL (7.4-10.4); Platelet Count 175 K/uL (130-400); RDW Coefficient of Variation 14.5 % (11.5-14.5); RDW Standard Deviation 54.8 fL (36.4-46.3); Red Blood Count 5.51 M/uL (4.7-6.1); White Blood Count 6.43 K/uL (4.8-10.8)
[2020-04-16 03:13] LABS: iSTAT Allen Test Pass; iSTAT Arterial Blood Gas HCO3 45 meg/L (19-24); iSTAT Arterial Blood Gas pCO2 108 mmHg (35-46); iSTAT Arterial Blood Gas pH 7.23 (7.35-7.45); iSTAT Arterial Blood Gas pO2 355 mmHg (80-95); iSTAT Carbon Dioxide > 40 mmol/L (24-31); iSTAT FiO2 100 %; iSTAT Site L Radial
--- NOTE | 2020-04-16 03:22 | Critical Care Consultation ---
Date of Consultation April 16, 2020 Assessment & Plan (1) Acute on chronic respiratory failure with hypoxia and hypercapnia: Reason Critically Ill: 49-year-old male presents to the ICU with hypoxic hypercapnic respiratory failure becoming obtunded despite BiPAP and Lasix. Required emergent intubation, now mechanically ventilated. Neuro - Sedation: Propofol Encephalopathymost likely secondary to elevated CO2 110 -BUN unremarkable -Ammonia level was elevated at 45, LFTs ordered, will give oral lactulose -CT head negative for acute process -Intubated for elevated CO2, currently sedated, will attempt to obtain neuro exam with sedation vacations History of CVA without residual Cardiac - CHFlast echo 2018 EF of 50 to 55%, grade 1 diastolic dysfunction -Follow-up repeat echo this morning -BNP elevated on admission, troponin WNL -Chest x-ray consistent with pulmonary vascular congestion -We will continue with aggressive diuresis -We will continue home med regimen -Continuous monitor on telemetry Respiratory - Acute on chronic hypoxic hypercapnic respiratory failureetiology likely mixed OHS, LUIS E, CHF exacerbation -Patient failed BiPAP, requiring intubation -Current vent settings 20/500/8/60 percent, adjust with ABGs, wean as tolerated -Chest x-ray with low lung volumes, left atelectasis, pulmonary vascular congestion -Denies tobacco abuse -Initial BNP elevated, continue aggressive diuresis -Nebs as needed -Continuous monitoring on pulse ox GI - N.p.o. RENAL/LYTES - Creatinine stable, monitor routine BMPs Replete electrolytes as indicated - Foleystrict I's and O's ENDO - DM type IIlast A1c 11 in August 2018, repeat pending -Continue basal bolus, sliding scale -ICU hyperglycemic protocol TSH within normal limits HEME - H&H stable, monitor routine CBCs ID - No indication for infectious process at this time LINES/IV ACCESS - PIV's, ETT, Sommer DVT PROPHYLAXIS - SCDs, heparin I have personally spent 50 minutes of critical care time in the direct management of this patient. This is a life/limb threatening event. This includes time spent evaluating patient, direct bedside care, chart review, placing orders, interpretation of diagnostic studies, discussion with consultants, patient, and family members, as well as other required patient management activities. This time is exclusive of all separately billable procedures, and teaching time and separate from and in addition to any other critical care service time. Thank you for allowing us to participate in the care of this patient. Please refer to my attending physician's documentation for any further recommendations. (2) Acute CHF: (3) Hypertension: (4) DM type 2 (diabetes mellitus, type 2): (5) Gout: (6) Alcohol abuse: History of Present Illness Attending Physician: Sandra Alvarez MD History of Present Illness Mr. malagon is a 49-year-old male with PMH of DM type II, HTN, HLD, CVA Wallenberg syndrome, gout, EtOH abuse with fatty liver, diastolic CHF who presented to the emergency department yesterday afternoon with worsening shortness of breath and bilateral lower extremity edema x2 weeks which has now progressed upwards to his abdomen. He had been started on 40 mg p.o. Lasix a week ago, but did not observe increased urination but was not monitoring his weight on a regular basis. He had noted increased redness on bilateral lower extremities as well. Patient was admitted to PCU and had been placed on BiPAP and given IV Lasix, and reportedly diuresed 1800 mL. However, patient was becoming increasingly obtunded, and despite higher BiPAP settings of 22/10, CO2 continued to elevate up to 110. Patient was transferred to the ICU and on arrival was very obtunded and at times was not able to pull tidal volumes on the BiPAP. Decision was made to emergently intubate, and ED physician came to the bedside and intubated patient. Patient is currently mechanically ventilated and sedated, will wean as tolerated. Patient remain in ICU for further management at this time. Allergies Allergy/AdvReac Type Severity Reaction Status Date / Time No Known Allergies Allergy Verified 04/15/20 15:14 Home Medications Home Medications Medication Instructions Recorded Confirmed Type Lantus Solostar U-100 Insulin 60 unit SUBCUT BID 08/22/18 04/15/20 History insulin aspart U-100 [Novolog See Rx Instructions .ROUTE .COMPLEX 09/10/18 04/15/20 History Flexpen U-100 Insulin] metformin 1,000 mg PO BIDM 09/10/18 04/15/20 History Jardiance 25 mg PO QAM 12/24/18 04/15/20 History atorvastatin [Lipitor] 80 mg PO HS 12/24/18 04/15/20 History carvedilol 12.5 mg PO BID 12/24/18 04/15/20 History clopidogrel [Plavix] 75 mg PO QAM 12/24/18 04/15/20 History allopurinol 300 mg PO QAM 04/15/20 04/15/20 History furosemide 40 mg PO QAM 04/15/20 04/15/20 History insulin aspart U-100 See Rx Instructions .ROUTE .COMPLEX 04/15/20 04/15/20 History lisinopril 20 mg PO QAM 04/15/20 04/15/20 History potassium chloride 10 meq PO QAM 04/15/20 04/15/20 History Patient History Medical History (Updated 04/16/20 @ 05:54 by HANNAH Arteaga) Alcohol abuse CVA (cerebral vascular accident) (Chronic) DM type 2 (diabetes mellitus, type 2) (Chronic) Dysphagia (Chronic) Gout (Chronic) HTN (hypertension) Hypertension (Chronic) Vertebral artery stenosis (Chronic) Surgical History History of carpal tunnel surgery History of lung surgery History of total left knee replacement Family History (Updated 04/15/20 @ 16:04 by Jayla Gilbert PA-C) Sister Stroke Mother Myocardial infarction, Onset Age: 70 Diabetes Father Myocardial infarction Diabetes Social History (Updated 04/15/20 @ 16:04 by Jayla Gilbert PA-C) Preferred Language: Iranian Communication Ability: Effective Visual Impairment: Limited Process Worker Required: No Beliefs That Will Affect Care: None marital status: Current Living Situation: Spouse and Family Other Information That Helps Us Care for You: No Feels Safe at Home: Yes Safety Concerns: Feels Safe At This Time Smoking Status: Never smoker Tobacco Type: cigars ; Second Hand Exposure: No ; Hx Alcohol Use: Yes (None since stroke about 3 weeks ago) Alcohol type: beer Alcohol Intake Frequency: Daily Hx Substance Use: No Review of Systems Review of Systems: Unobtainable due to cognitive status, Unobtainable due to endotracheal tube and Unobtainable due to reduced consciousness Physical Exam Constitutional: + obese and + mechanically ventilated Eyes: PERRL, conjunctivae normal, anicteric sclerae ENMT: external ear and nose normal, oropharynx normal Neck: trachea midline, no thyromegaly Respiratory: Mechanically ventilated, symmetrical chest wall movement, bilateral diminished breath sounds, no wheezing, no crackles Cardiovascular: RRR, no murmur, no edema Heart Sounds: normal S1 and normal S2 Vessels: no JVD Bilateral lower extremity edema +4 Gastrointestinal (Abdomen): Abdomen obese, nondistended, nontender, normal bowel sounds Skin: Erythema and swelling to bilateral lower extremities Neurologic: Obtunded, localizes to pain, cough gag corneal intact, PERRLA Psychiatric: MARCO Genitourinary: Indwelling Sommer catheter Results & Data Results & Data ([facility]) Vital Signs (Past 12 Hours) Vital Signs Temp Pulse Pulse Resp BP BP BP 04/16/20 01:19 83 22 04/16/20 00:31 80 04/15/20 23:43 36.4 C L 83 18 104/64 04/15/20 23:30 81 16 04/15/20 20:25 04/15/20 20:02 04/15/20 20:00 36.4 C L 82 16 116/76 04/15/20 17:44 83 04/15/20 17:10 36.4 C L 84 18 118/78 04/15/20 16:13 80 19 116/74 Pulse Ox Pulse Ox 04/16/20 01:19 97 04/16/20 00:31 04/15/20 23:43 94 04/15/20 23:30 90 04/15/20 20:25 95 04/15/20 20:02 90 04/15/20 20:00 85 L 04/15/20 17:44 04/15/20 17:10 96 04/15/20 16:13 99 Coding Level of Care Code Critical Care 1st 30-74 mins Diagnoses Acute on chronic respiratory failure with hypoxia and hypercapnia J96.21; J96.22 Acute CHF I50.9 Hypertension I10 DM type 2 (diabetes mellitus, type 2) E11.9 Gout M10.9 Alcohol abuse F10.10
[2020-04-16 03:41] LABS: Mean Corpuscular Hgb Conc 30.7 g/dL (32-36)
[2020-04-16 03:45] LABS: BUN Creatinine Ratio 26.5 (10-20); Calcium 8.6 mg/dl (8.5-10.1); Creatinine Clr Calc Pharmacy 147.3 ml/min; Est GFR (African American) 120.6; Magnesium 1.8 mg/dl (1.8-2.4); Phosphorus 5.7 mg/dl (2.5-4.9); Potassium 5.2 mmol/L (3.5-5.1)
[2020-04-16] MEDS ORDERED: FUROSEMIDE 40 MG in SYRINGE 0 ML IV ONE (05:37)
--- NOTE | 2020-04-16 05:47 | Emergency Department Note ---
ED Visit Note Intubation note: I was requested by the critical care ERIN to intubate this patient for respiratory failure. I arrived in the ICU bed 110 to find the patient on the monitor and storage bin tender and pulse oximeter receiving bag valve ventilation by respiratory therapy. I evaluated the patient's airway and discussed the situation with the patient. I discussed the case with respiratory, nursing and the ERIN at the bedside. I asked for the glide scope and airway cart from the emergency department. I used an 8.0 endotracheal tube and glide scope to facilitate endotracheal intubation of this patient. The patient was observed on the monitor and storage bin tender, pulse oximeter and end-tidal CO2. Rapid sequence induction was performed with 30 mg of IV etomidate and 200 mg of IV succinylcholine. This produced adequate sedation and muscle relaxation to facilitate easy endotracheal intubation. Tube placement was confirmed with direct visualization of the tube passing through the cords, condensation on the tube, colorimetric change of the end-tidal CO2 detector, equal chest rise was visualized and bilateral breath sounds were noted. Patient's O2 saturation remained at 96% or higher. The tube was secured at 25 cm at the lip. The tube was secured with a commercial tube holding device. They will obtain a post intubation x-ray and the ERIN will provide post intubation sedation. . : CHF (congestive heart failure) Qualifiers: Heart failure type: unspecified Heart failure chronicity: unspecified Qualified Code(s): I50.9 - Heart failure, unspecified
[2020-04-16 05:51] LABS: iSTAT Allen Test Pass; iSTAT Arterial Blood Gas HCO3 41 meg/L (19-24); iSTAT Arterial Blood Gas pCO2 39 mmHg (35-46); iSTAT Arterial Blood Gas pH 7.63 (7.35-7.45); iSTAT Arterial Blood Gas pO2 46 mmHg (80-95); iSTAT Carbon Dioxide > 40 mmol/L (24-31); iSTAT FiO2 60 %; iSTAT Site L Radial
[2020-04-16] MEDS: HEPARIN SOD 5,000 UNIT/0.5 ML VIAL SQ SCH ×3 (06:01→20:52)
[2020-04-16] MEDS ORDERED: ICU PROTOCOL FOR HYPERGLYCEMIA PRN (06:23)
[2020-04-16] MEDS ORDERED: ALBUT/IPRATROP 3MG/0.5MG NEB 3 ML VIAL NEB PRN (06:35)
--- NOTE | 2020-04-16 06:44 | Electrocardiogram Report ---
Test Reason : Blood Pressure : / mmHG Vent. Rate : 085 BPM Atrial Rate : 085 BPM P-R Int : 246 ms QRS Dur : 104 ms QT Int : 372 ms P-R-T Axes : 015 -32 067 degrees QTc Int : 442 ms Sinus rhythm with 1st degree A-V block Possible Left atrial enlargement Left axis deviation Inferior infarct , age undetermined Anterior infarct Abnormal ECG When compared with ECG of 12-SEP-2018 06:16, NE interval has increased Inferior infarct is now Present Anterior infarct is now Present Confirmed by Pop Oviedo ([id number]) on 04/16/2020 6:44:35 AM Referred By: Confirmed By:Pop Oviedo
[2020-04-16 06:58] LABS: Albumin Level 2.7 gm/dl (3.4-5.0); Bilirubin Direct 0.4 mg/dl (0-0.2); Total Protein 5.6 gm/dl (6.4-8.2)
--- NOTE | 2020-04-16 07:13 | Hospitalist Progress Note ---
Date of Service April 16, 2020 Assessment & Plan Admission and Anticipated Discharge Date Admission Date: April 15, 2020 Subjective Patient was somnolent and oxygen sats down . Was placed on bipap and abg done which showed acidosis with co2 retention. Increased bpap settings and repeat abg not much improvement. transferred to ICU and s/p intubation. Tried to call but going to voice mail. Will Try to contact her again. Results & Data Results & Data ([facility]) Vital Signs (Past 12 Hours) Vital Signs Temp Pulse Pulse Resp BP BP Pulse Ox 04/16/20 06:15 82 138/80 93 04/16/20 06:00 37.3 C 82 136/77 91 04/16/20 05:45 82 151/84 H 91 04/16/20 05:44 81 22 91 04/16/20 05:30 81 150/84 H 91 04/16/20 05:15 80 147/82 H 91 04/16/20 05:00 37.3 C 80 154/85 H 92 04/16/20 04:45 81 151/88 H 94 04/16/20 04:00 37.1 C 79 147/87 H 94 04/16/20 03:45 80 138/78 94 04/16/20 03:30 82 127/68 95 04/16/20 03:15 84 132/77 95 04/16/20 03:01 37.2 C 86 141/121 H 91 04/16/20 02:45 86 24 124/73 99 04/16/20 02:30 87 161/101 H 100 04/16/20 02:15 86 132/79 98 04/16/20 02:01 37.3 C 87 23 108/83 95 04/16/20 01:47 83 23 127/72 93 04/16/20 01:19 83 22 97 04/16/20 00:31 80 04/15/20 23:43 36.4 C L 83 18 104/64 94 04/15/20 23:30 81 16 90 04/15/20 20:25 04/15/20 20:02 90 04/15/20 20:00 36.4 C L 82 16 116/76 85 L Pulse Ox 04/16/20 06:15 04/16/20 06:00 04/16/20 05:45 04/16/20 05:44 04/16/20 05:30 06/13/20 05:15 04/16/20 05:00 04/16/20 04:45 04/16/20 04:00 04/16/20 03:45 04/16/20 03:30 04/16/20 03:15 04/16/20 03:01 04/16/20 02:45 04/16/20 02:30 04/16/20 02:15 04/16/20 02:01 04/16/20 01:47 04/16/20 01:19 04/16/20 00:31 04/15/20 23:43 04/15/20 23:30 04/15/20 20:25 95 04/15/20 20:02 04/15/20 20:00
--- NOTE | 2020-04-16 07:17 | CT Scan Report ---
CT OF THE HEAD WITHOUT CONTRAST CLINICAL HISTORY: Altered mental status. COMPARISON STUDY: Head CT September 10, 2018. MRI of the brain August 22, 2018. CT DOSE: 1074.96 mGy.cm TECHNIQUE: Helical axial images of the head were obtained without IV contrast. Automated exposure con trol was utilized for the study. A dose lowering technique was utilized adhering to the principles o f ALARA. FINDINGS: Exam is mildly compromised by motion artifact. No acute intracranial hemorrhage, midline sh ift or mass effect is present. The ventricular system is unremarkable. The basilar cisterns are paten t. No extra-axial collections are present. There are no findings to suggest acute dural sinus thrombo sis or acute territorial infarct. White matter hypodensities are unchanged. No significant calvarial abnormalities are present. Visualized portions of the sinuses and mastoid air cells are clear. Endotr acheal and nasogastric tubes are incidentally noted. IMPRESSION: Exam mildly compromised by motion artifact. No acute intracranial findings. ACT 112: Negative or not required by law. Electronically signed by: Alejo Lord M.D. 04/16/2020 7:16 AM
[2020-04-16 07:19] LABS: Estimated Average Glucose 212 mg/dl
--- NOTE | 2020-04-16 07:41 | XRay Report ---
XR chest 1V portable CLINICAL HISTORY: Respiratory failure. COMPARISON STUDY: Chest radiograph 04/15/2020. FINDINGS: The tip of the endotracheal tube is 3.5 cm above the minal. Tip of nasogastric tube is bel ow the lower aspect of this image but at least within the body of the stomach. Lung volumes are dimin ished. This is unchanged. Left basilar opacity is noted. Also mild right basilar opacity. There is pu lmonary vascular congestion. There is no pneumothorax. Enlargement of the cardiac silhouette is uncha nged. IMPRESSION: 1. Tip of endotracheal tube 3.5 cm above the minal. 2. Low lung volumes with bibasilar opacities that favor atelectasis although consolidation could appe ar similar. 3. Pulmonary vascular congestion. ACT 112: Negative or not required by law. Electronically signed by: Alejo Lord M.D. 04/16/2020 7:39 AM
[2020-04-16] MEDS: LACTULOSE SYRUP 30 GM/45 ML UDP PO SCH ×2 (08:25→20:52)
[2020-04-16 08:26] LABS: iSTAT Allen Test Pass; iSTAT Arterial Blood Gas HCO3 43 meg/L (19-24); iSTAT Arterial Blood Gas pCO2 43 mmHg (35-46); iSTAT Arterial Blood Gas pH 7.61 (7.35-7.45); iSTAT Arterial Blood Gas pO2 54 mmHg (80-95); iSTAT Carbon Dioxide > 40 mmol/L (24-31); iSTAT FiO2 60 %; iSTAT Site L Radial
[2020-04-16] MEDS: INSULIN ASPART 100 UNITS/ML 3 ML PEN SC SCH ×3 (08:26→19:49)
[2020-04-16] MEDS: THIAMINE HCL 100 MG in SYRINGE 9 ML IV SCH (08:26)
[2020-04-16] MEDS: carvediloL 12.5 MG TAB PO SCH (08:27)
[2020-04-16] MEDS: CLOPIDOGREL BISULFATE 75 MG TAB PO SCH (08:27)
[2020-04-16] MEDS ORDERED: lisinopriL 20 MG TAB PO SCH (09:00)
[2020-04-16] MEDS ORDERED: INSULIN GLARGINE 100 UNIT/ML VIAL SC SCH ×2 (09:00→21:00)
[2020-04-16] MEDS ORDERED: allopurinoL 300 MG TAB PO SCH (09:00)
[2020-04-16] MEDS ORDERED: POTASSIUM CHLORIDE 10 MEQ TABCR PO SCH (09:00)
--- NOTE | 2020-04-16 09:07 | Electrocardiogram Report ---
Test Reason : Blood Pressure : / mmHG Vent. Rate : 082 BPM Atrial Rate : 082 BPM P-R Int : 262 ms QRS Dur : 112 ms QT Int : 412 ms P-R-T Axes : 015 -59 068 degrees QTc Int : 481 ms Sinus rhythm with 1st degree A-V block Possible Left atrial enlargement Non-specific intra-ventricular conduction delay Left axis deviation Inferior infarct (cited on or before 15-APR-2020) Anterolateral infarct (cited on or before 15-APR-2020) Abnormal ECG When compared with ECG of 15-APR-2020 14:05, Questionable change in initial forces of Lateral leads Confirmed by Warner Urena ([id number]) on 04/16/2020 9:07:12 AM Referred By: Ignacia Mccarthy Confirmed By:Warner Urena
[2020-04-16] MEDS ORDERED: CEFEPIME CONSULT ACTIVE PRN (10:19)
[2020-04-16] MEDS ORDERED: FENTANYL BOLUS FROM BAG IV PRN (10:30)
--- NOTE | 2020-04-16 10:40 | Pharmacy Report ---
Pharmacy Glycemic Short Note 2 - Date of Service April 16, 2020 - Glycemic Short BSG Results (Last 24 hours): 04/15/20 04/15/20 04/15/20 14:15 17:07 19:31 Glucose 158 H POC Glucose 104 H 110 H 04/16/20 04/16/20 04/16/20 01:39 02:50 08:24 Glucose 116 H POC Glucose 136 H 100 H ASSESSMENT: * WS is a 49 year old male admitted on 04/15/20 with worsening shortness of breath and lower extremity edema secondary to exacerbation of CHF * BSG at time of consult is 104 mg/dL * At this point with limited data - will continue home basal insulin and use aggressive Novolog parameters based on home Novolog doses 04/16: * Patient received total of 100 units of basal insulin yesterday, 12 units of correctional insulin. Note, this is reduction of home dose of Lantus 60 BID * Patient with hypoxic failure transferred to ICU/intubated last evening * Continues intubated this morning/propofol gtt running - BSGs this AM 100 mg/dL / plan to reduce basal insulin today d/t NPO status PLAN FOR INPATIENT GLYCEMIC CONTROL: * Holding outpatient oral diabetes medications * Basal insulin * Lantus 30 this AM, then scale 15-30 units BID * Bolus insulin * NovoLog per scale ACHS or Q6hrs while NPO * Goal Range: Low 110 mg/dL - High 140 mg/dL * Correction Factor: 15 mg/dL/unit * Nutritional / Prandial insulin per carb ratio of 1 unit per 5 grams CHO consumed * 0200 check with same parameters * Please note that the plan above was derived based on current level of insulin resistance and hospital stress. These recommendations are appropriate for inpatient admission only. Plan of care upon discharge will need to be reassessed to avoid potential outpatient hypo/hyperglycemia. Thank you.
--- NOTE | 2020-04-16 10:46 | Cardiology Consultation ---
Date of Consultation Patient is admitted to the hospital with angely anasarca.The history is obtained from the hospital records before he was intubated. He is currently intubated and sedated in the ICU. It sounds like he has had progressive lower extremity edema and abdominal distention. 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 Patient had a [employer] LINQ ILR placed on 12/25/2018 to rule out cardiac arrhythmias which may have contributed to his CVA. ECHOCARDIOGRAM 08/23/2018: -- Normal LV size and systolic function. -- LVEF 50% to 55%, No RWMA's. -- Moderate concentric LVH. -- Grade I LV diastolic dysfunction. -- Focal calcification at the junction of the right and non coronary cusps of the aortic valve. -- Focal calcification on the posterior mitral leaflet and annulus. -- No valvular insufficiencies or stenoses. April 16, 2020 History of Present Illness Attending Physician: Dipti Allen MD Allergies Allergy/AdvReac Type Severity Reaction Status Date / Time No Known Allergies Allergy Verified 04/15/20 15:14 Home Medications Home Medications Medication Instructions Recorded Confirmed Type Lantus Solostar U-100 Insulin 60 unit SUBCUT BID 08/22/18 04/15/20 History insulin aspart U-100 [Novolog See Rx Instructions .ROUTE .COMPLEX 09/10/18 04/15/20 History Flexpen U-100 Insulin] metformin 1,000 mg PO BIDM 09/10/18 04/15/20 History Jardiance 25 mg PO QAM 12/24/18 04/15/20 History atorvastatin [Lipitor] 80 mg PO HS 12/24/18 04/15/20 History carvedilol 12.5 mg PO BID 12/24/18 04/15/20 History clopidogrel [Plavix] 75 mg PO QAM 12/24/18 04/15/20 History allopurinol 300 mg PO QAM 04/15/20 04/15/20 History furosemide 40 mg PO QAM 04/15/20 04/15/20 History insulin aspart U-100 See Rx Instructions .ROUTE .COMPLEX 04/15/20 04/15/20 History lisinopril 20 mg PO QAM 04/15/20 04/15/20 History potassium chloride 10 meq PO QAM 04/15/20 04/15/20 History Patient History Medical History Alcohol abuse CVA (cerebral vascular accident) (Chronic) DM type 2 (diabetes mellitus, type 2) (Chronic) Dysphagia (Chronic) Gout (Chronic) HTN (hypertension) Hypertension (Chronic) Vertebral artery stenosis (Chronic) Surgical History History of carpal tunnel surgery History of lung surgery History of total left knee replacement Family History Sister Stroke Mother Myocardial infarction, Onset Age: 70 Diabetes Father Myocardial infarction Diabetes Social History Preferred Language: Chadian Communication Ability: Effective Visual Impairment: Limited [employer] Supervisor Required: No Beliefs That Will Affect Care: None marital status: Current Living Situation: Spouse and Family Other Information That Helps Us Care for You: No Feels Safe at Home: Yes Safety Concerns: Feels Safe At This Time Smoking Status: Never smoker Tobacco Type: cigars ; Second Hand Exposure: No ; Hx Alcohol Use: Yes (None since stroke about 3 weeks ago) Alcohol type: beer Alcohol Intake Frequency: Daily Hx Substance Use: No Results & Data ([facility]) Vital Signs (Past 12 Hours) Vital Signs Temp Pulse Pulse Resp BP BP Pulse Ox 04/16/20 09:00 86 118/67 92 04/16/20 08:04 16 04/16/20 08:00 37.6 C H 85 127/82 91 04/16/20 07:45 84 135/79 91 04/16/20 07:30 83 135/81 91 04/16/20 07:29 83 20 90 04/16/20 07:15 83 136/79 92 04/16/20 07:00 84 134/74 91 04/16/20 06:15 82 138/80 93 04/16/20 06:00 37.3 C 82 136/77 91 04/16/20 05:45 82 151/84 H 91 04/16/20 05:44 81 22 91 04/16/20 05:30 81 150/84 H 91 04/16/20 05:15 80 147/82 H 91 04/16/20 05:00 37.3 C 80 154/85 H 92 04/16/20 04:45 81 151/88 H 94 04/16/20 04:00 37.1 C 79 147/87 H 94 04/16/20 03:45 80 138/78 94 04/16/20 03:30 82 127/68 95 04/16/20 03:15 84 132/77 95 04/16/20 03:01 37.2 C 86 141/121 H 91 04/16/20 02:45 86 24 124/73 99 04/16/20 02:30 87 161/101 H 100 04/16/20 02:15 86 132/79 98 04/16/20 02:01 37.3 C 87 23 108/83 95 04/16/20 01:47 83 23 127/72 93 04/16/20 01:19 83 22 97 04/16/20 00:31 80 04/15/20 23:43 36.4 C L 83 18 104/64 94 04/15/20 23:30 81 16 90 He is intubated and sedated on the ventilator currently. He does respond to painful stimuli. H EENT: 2+ carotid upstrokes no evidence of carotid bruits. His jugular venous pressure could not be assessed next line lungs: Crackles in the bases bilaterally no rhonchi or wheezing Heart: Regular rate and rhythm no appreciable murmurs rubs or gallops the second heart sound was not accentuated Abdomen: Distended nontender firm positive bowel sounds Extremities: Severe pitting edema to the thighs bilaterally with chronic stasis changes of his lower extremities Psychiatric could not be assessed neurologic he moves to stimuli. Impressions: 1.Likely diastolic and right-sided heart failure 2. obstructive sleep apnea and obesity hypoventilation syndrome 3.Vent dependent respiratory failure secondary to Hypercapnic respiratory failure 4. History of alcohol use 5. Prior history of CVA with negative device interrogations of his implantable loop recorder for arrhythmias He has diuresed 4 L. His pH is significantly elevated and His [id number] in discussion with the register of wills team, they plan to initiate Diamox to improve his pH. Once his pH stabilizes and his PCO2 stabilizes I would switch him back to loop diuretics. An echocardiogram is currently pending.Clinically this sounds like a combination of diastolic and right-sided heart failure.Depending on his potassium we should consider the use of spironolactone Once more stable. We will have to watch for progressive prerenal azotemia. His albumin is 3 which is low for a 49-year-old healthy male. We will also watch for alcohol withdrawal.Further recommendations will be forthcoming after his echocardiogram
[2020-04-16] MEDS: FUROSEMIDE 40 MG in SYRINGE 0 ML IV SCH (11:06)
[2020-04-16] MEDS: CEFEPIME 2,000 MG in SYRINGE 7.5 ML IV SCH ×2 (11:45→18:04)
[2020-04-16] MEDS: fentaNYL DRIP 1,250 MCG/250 ML BAG IV SCH (11:45)
[2020-04-16 12:24] LABS: BUN Creatinine Ratio 31.2 (10-20); Calcium 9.1 mg/dl (8.5-10.1); Creatinine Clr Calc Pharmacy 189.1 ml/min; Est GFR (African American) 134.2; Est GFR (Non-African American) 115.8; Potassium 3.6 mmol/L (3.5-5.1)
[2020-04-16 13:41] LABS: iSTAT Allen Test Pass; iSTAT Arterial Blood Gas HCO3 44 meg/L (19-24); iSTAT Arterial Blood Gas pCO2 59 mmHg (35-46); iSTAT Arterial Blood Gas pH 7.48 (7.35-7.45); iSTAT Arterial Blood Gas pO2 94 mmHg (80-95); iSTAT Carbon Dioxide > 40 mmol/L (24-31); iSTAT FiO2 65 %; iSTAT Site L Radial
[2020-04-16] MEDS ORDERED: ETOMIDATE 2 MG/ML 20 ML VIAL IV ONE (15:21)
[2020-04-16] MEDS ORDERED: SUCCINYLCHOLINE CHLORIDE 20 MG/ML 10 ML VIAL IV ONE (15:21)
--- NOTE | 2020-04-16 16:38 | Hospitalist Progress Note ---
Date of Service April 16, 2020 Assessment & Plan (1) Acute on chronic respiratory failure with hypoxia and hypercapnia: developed hypercapnia with hypoxic resp failure -due to combination of decomensated diastolic CHF /vol overload /CO2 retention due to inderlying LUIS E /obesity hypoventilation syndrome pt failed bipap trial required mechanical ventilation appreciate input from Pulm /Crtitical care (2) Acute CHF: acute decompensation of diastolic CHF ( HFpEF ) last echo 08/2018 revealed normal LVEF, No RWMA, moderate concentric LVH, grade I diastolic dysfunction) repeat ECHo rodered intubated for respiratory failure continue aggresive diuresus cardiology consulted, appreciate input (3) DM type 2 (diabetes mellitus, type 2): Last A1c 8.7 on 04/02/2020 pharmacy following for glycemic management (4) CVA (cerebral vascular accident): History of Left medulla CVA, Wallenberg syndrome in 08/2018 (5) Alcohol abuse: (6) DVT prophylaxis: SQ Heparin code status : full code Admission and Anticipated Discharge Date Admission Date: April 15, 2020 Subjective pt remains intubated sedated on vent Physical Exam Constitutional: WD/WN, vitals as above intubated ENMT: ET tube present Respiratory: Auscultation: + diminished lung sounds mechanically ventilated Cardiovascular: Rate/Rhythm: regular rate and regular rhythm Gastrointestinal (Abdomen): Percussion/Palpation: abdomen soft Neurologic: sedated on vent Results & Data Results & Data ([facility]) Vital Signs (Past 12 Hours) Vital Signs Temp Pulse Resp BP Pulse Ox 04/16/20 11:23 84 17 94 04/16/20 11:00 83 128/73 94 04/16/20 10:00 37.8 C H 84 118/65 92 04/16/20 09:00 86 118/67 92 04/16/20 08:04 16 04/16/20 08:00 37.6 C H 85 127/82 91 04/16/20 07:45 84 135/79 91 04/16/20 07:30 83 135/81 91 04/16/20 07:29 83 20 90 04/16/20 07:15 83 136/79 92 04/16/20 07:00 84 134/74 91 04/16/20 06:15 82 138/80 93 04/16/20 06:00 37.3 C 82 136/77 91 04/16/20 05:45 82 151/84 H 91 04/16/20 05:44 81 22 91 04/16/20 05:30 81 150/84 H 91 04/16/20 05:15 80 147/82 H 91 04/16/20 05:00 37.3 C 80 154/85 H 92 04/16/20 04:45 81 151/88 H 94
[2020-04-16] MEDS ORDERED: acetaZOLAMIDE 250 MG in DEXTROSE 5% 100 ML IV STA (17:44)
[2020-04-16] MEDS: FAMOTIDINE 20 MG in SYRINGE 3 ML IV SCH (20:51)
[2020-04-16] MEDS: ATORVASTATIN 40 MG TAB PO SCH (20:51)
[2020-04-16] MEDS: acetaZOLAMIDE 250 MG in DEXTROSE 5% 100 ML IV SCH (20:52)
[2020-04-17] MEDS: INSULIN ASPART 100 UNITS/ML 3 ML PEN SC SCH ×5 (00:49→21:05)
[2020-04-17] MEDS: CEFEPIME 2,000 MG in SYRINGE 7.5 ML IV SCH (03:22)
[2020-04-17] MEDS: propofoL 1,000 MG/100 ML VIAL IV SCH ×4 (04:37→09:47)
[2020-04-17 04:39] LABS: Basophils # (auto) 0.01 K/uL (0-0.2); Basophils % (auto) 0.1 %; Eosinophils # (auto) 0.16 K/uL (0-0.5); Eosinophils % (auto) 2.3 %; Hematocrit (blood only) 54.1 % (42-52); Hemoglobin 17.5 g/dL (14.0-18.0); Immature Granulocytes # (auto) 0.01 K/uL (0.00-0.02); Immature Granulocytes % (auto) 0.1 %; Lymphocytes # (auto) 1.18 K/uL (1.2-3.4); Lymphocytes % (auto) 16.8 %; Mean Corpuscular Hemoglobin 31.5 pg (25-34); Mean Corpuscular Hgb Conc 32.3 g/dL (32-36); Mean Corpuscular Volume 97.3 fL (80-100); Mean Platelet Volume 10.5 fL (7.4-10.4); Monocytes # (auto) 0.54 K/uL (0.11-0.59); Monocytes % (auto) 7.7 %; Neutrophils # (auto) 5.13 K/uL (1.4-6.5); Platelet Count 147 K/uL (130-400); RDW Coefficient of Variation 14.5 % (11.5-14.5); RDW Standard Deviation 51.9 fL (36.4-46.3); Red Blood Count 5.56 M/uL (4.7-6.1); White Blood Count 7.03 K/uL (4.8-10.8)
[2020-04-17 05:08] LABS: Albumin Level 2.3 gm/dl (3.4-5.0); BUN Creatinine Ratio 29.5 (10-20); Calcium 8.7 mg/dl (8.5-10.1); Creatinine Clr Calc Pharmacy 232.8 ml/min; Est GFR (African American) 146.2; Est GFR (Non-African American) 126.1; Potassium 3.3 mmol/L (3.5-5.1)
[2020-04-17 05:11] LABS: Albumin Globulin Ratio 0.6 (0.9-2); Globulin 3.7 gm/dl (2.5-4.0)
[2020-04-17] MEDS: HEPARIN SOD 5,000 UNIT/0.5 ML VIAL SQ SCH ×3 (06:10→21:06)
[2020-04-17] MEDS: POTASSIUM CHLORIDE / WTR 10 MEQ/100 ML PLCT IV SCH ×3 (07:01→08:59)
--- NOTE | 2020-04-17 07:57 | XRay Report ---
XR chest 1V portable CLINICAL HISTORY: follow up diuresis COMPARISON STUDY: Chest radiograph April 16, 2020. FINDINGS: The endotracheal tube is 2.4 cm above the minal. Tip of nasogastric tube is below the lowe r aspect of this image but at least within the body of the stomach. Lung volumes are diminished. This is unchanged. Elevation of the left hemidiaphragm with left basilar opacity persists. Right basilar opacity persists. There is pulmonary vascular congestion which is similar to prior exam. IMPRESSION: 1. Tip of endotracheal tube 3.4 cm above the minal. 2. No change in appearance of the chest. Low lung volumes with bibasilar opacities and a small left p leural effusion. 3. Pulmonary vascular congestion. Cardiomegaly. ACT 112: Negative or not required by law. Electronically signed by: Alejo Lord M.D. 04/17/2020 7:55 AM
[2020-04-17] MEDS: THIAMINE HCL 100 MG in SYRINGE 9 ML IV SCH (08:13)
[2020-04-17] MEDS: LACTULOSE SYRUP 30 GM/45 ML UDP PO SCH ×2 (08:13→21:02)
[2020-04-17] MEDS: CLOPIDOGREL BISULFATE 75 MG TAB PO SCH (08:13)
[2020-04-17] MEDS: acetaZOLAMIDE 250 MG in DEXTROSE 5% 100 ML IV SCH (08:14)
[2020-04-17] MEDS: FAMOTIDINE 20 MG in SYRINGE 3 ML IV SCH (08:14)
--- NOTE | 2020-04-17 08:58 | Critical Care Progress Note ---
Date of Service April 17, 2020 Assessment & Plan (1) Acute on chronic respiratory failure with hypoxia and hypercapnia: Reason Critically Ill: 49-year-old male presents to the ICU with hypoxic hypercapnic respiratory failure becoming obtunded despite BiPAP and Lasix. Required emergent intubation, now mechanically ventilated. Neuro - Sedation: Propofol Encephalopathymost likely secondary to elevated CO2 110 -BUN unremarkable -Ammonia level was elevated at 45, LFTs ordered, will give oral lactulose -CT head negative for acute process -Intubated for elevated CO2, currently sedated, will attempt to obtain neuro exam with sedation vacations History of CVA without residual Cardiac - CHF Echo performed yesterday demonstrated severe concentric left ventricular hypertrophy. EF of 55 to 60%. Right ventricle is mildly dilated. PA systolic pressure was 35 mmHg. Grade 1 diastolic dysfunction seen. Appreciate cardiology input. Continue Plavix. Respiratory - Acute on chronic hypoxic hypercapnic respiratory failureetiology likely mixed OHS, LUIS E, CHF exacerbation -Doing well on spontaneous breathing trial. We will extubate directly to BiPAP. Will need to wear BiPAP at all times during sleep. GI - Will assess swallowing later today after extubation. RENAL/LYTES - Status post 3 doses of acetazolamide. Bicarb is trending down nicely. Replacing potassium this morning. We will check a magnesium and phosphorus. We will likely restart Lasix this evening. Patient is -5 L. 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 No significant fevers. Cultures negative. Will discontinue antibiotics. LINES/IV ACCESS - PIV's, ETT, Sommer DVT PROPHYLAXIS - SCDs, heparin Patient discussed with bedside RN. I have personally spent 32 minutes of critical care time in the direct management of this patient. This is a life/limb threatening event. This includes time spent evaluating patient, direct bedside care, chart review, placing orders, interpretation of diagnostic studies, discussion with consultants, patient, and family members, as well as other required patient management activities. This time is exclusive of all separately billable procedures, and teaching time and separate from and in addition to any other critical care service time. Thank you for allowing us to participate in the care of this patient. Please refer to my attending physician's documentation for any further recommendations. (2) Acute CHF: (3) Hypertension: (4) DM type 2 (diabetes mellitus, type 2): (5) Gout: (6) Alcohol abuse: Admission and Anticipated Discharge Date Admission Date: April 15, 2020 Subjective Patient on spontaneous breathing trial since 5:30 in the morning today. He is diuresing well. No acute issues. He is awake and alert. Off sedation completely. Following commands without any issues. Physical Exam Constitutional: + obese and + mechanically ventilated Eyes: PERRL, conjunctivae normal, anicteric sclerae ENMT: external ear and nose normal, oropharynx normal Neck: trachea midline, no thyromegaly Respiratory: Mechanically ventilated, symmetrical chest wall movement, bilat eral diminished breath sounds, no wheezing, no crackles Cardiovascular: RRR, no murmur, no edema Heart Sounds: normal S1 and normal S2 Vessels: no JVD Bilateral lower extremity edema +4 Gastrointestinal (Abdomen): Abdomen obese, nondistended, nontender, normal bowel sounds Skin: Erythema and swelling to bilateral lower extremities Neurologic: Awake and alert. Following commands. Psychiatric: Unable to assess. He does not appear anxious. Genitourinary: Indwelling Sommer catheter Results & Data Results & Data ([facility]) Vital Signs (Past 12 Hours) Vital Signs Temp Pulse Resp BP Pulse Ox 04/17/20 07:05 98 H 13 91 04/17/20 06:00 88 138/75 94 04/17/20 05:00 89 132/73 93 04/17/20 04:56 89 16 93 04/17/20 04:00 98.6 F 89 141/86 H 95 04/17/20 03:00 87 138/79 93 04/17/20 02:00 87 131/84 94 04/17/20 01:43 88 16 94 04/17/20 01:00 88 131/76 93 04/17/20 00:00 98.8 F 86 140/87 97 04/16/20 23:00 85 132/83 94 04/16/20 22:00 87 130/79 95 04/16/20 21:59 86 16 95 04/16/20 21:00 83 132/84 95 Coding Level of Care Code Critical Care 1st 30-74 mins Diagnoses Acute on chronic respiratory failure with hypoxia and hypercapnia J96.21; J96.22 Acute CHF I50.9 Hypertension I10 DM type 2 (diabetes mellitus, type 2) E11.9 Gout M10.9 Alcohol abuse F10.10 Time Spent (min) 32
[2020-04-17 09:33] LABS: Magnesium 1.6 mg/dl (1.8-2.4)
--- NOTE | 2020-04-17 09:40 | Pharmacy Report ---
Pharmacy Glycemic Short Note 2 - Date of Service April 17, 2020 - Glycemic Short BSG Results (Last 24 hours): 04/16/20 04/16/20 04/16/20 11:17 12:25 15:34 Glucose 82 POC Glucose 81 68 L* 04/16/20 04/16/20 04/16/20 15:36 15:38 19:48 Glucose POC Glucose 87 80 85 04/16/20 04/17/20 04/17/20 21:03 00:30 04:00 Glucose 71 POC Glucose 96 95 04/17/20 06:06 Glucose POC Glucose 77 ASSESSMENT: 04/17: * Patient received total of 45 units of insulin yesterday - BSGs well controlled / this is significant reduction in home dose of insulin * Fasting BSG ~71 mg/dL - will hold AM basal and transition to once daily insulin later today to ensure BSGs trending upward * Spontaneous breathing trial this AM / off sedation per provider notes * Plan to add scale for basal insulin for tonight - will continue to scale back dosing as BSGs trending down 04/16: * Patient received total of 100 units of basal insulin yesterday, 12 units of correctional insulin. Note, this is reduction of home dose of Lantus 60 BID * Patient with hypoxic failure transferred to ICU/intubated last evening * Continues intubated this morning/propofol gtt running - BSGs this AM 100 mg/dL / plan to reduce basal insulin today d/t NPO status PLAN FOR INPATIENT GLYCEMIC CONTROL: * Holding outpatient oral diabetes medications * Basal insulin * Lantus - hold this AM * Lantus HS per scale 20-25 units * Bolus insulin * NovoLog per scale ACHS or Q6hrs while NPO * Goal Range: Low 110 mg/dL - High 140 mg/dL * Correction Factor: 15 mg/dL/unit * Nutritional / Prandial insulin per carb ratio of 1 unit per 5 grams CHO consumed * 0200 check with same parameters * Please note that the plan above was derived based on current level of insulin resistance and hospital stress. These recommendations are appropriate for inpatient admission only. Plan of care upon discharge will need to be reassessed to avoid potential outpatient hypo/hyperglycemia. Thank you.
[2020-04-17] MEDS: MAGNESIUM SULFATE / D5W 1 GM/100 ML BAG IV SCH ×3 (10:10→15:53)
[2020-04-17] MEDS: fentaNYL DRIP 1,250 MCG/250 ML BAG IV SCH (10:46)
--- NOTE | 2020-04-17 10:48 | Electrocardiogram Report ---
Test Reason : Blood Pressure : / mmHG Vent. Rate : 097 BPM Atrial Rate : 097 BPM P-R Int : 248 ms QRS Dur : 118 ms QT Int : 370 ms P-R-T Axes : 028 -46 072 degrees QTc Int : 469 ms Sinus rhythm with 1st degree A-V block Left axis deviation Non-specific intra-ventricular conduction delay Inferior infarct (cited on or before 15-APR-2020) Anterolateral infarct (cited on or before 15-APR-2020) Abnormal ECG When compared with ECG of 16-APR-2020 06:36, No significant change was found Confirmed by Warner Urena ([id number]) on 04/17/2020 10:48:10 AM Referred By: Ignacia Mccarthy Confirmed By:Warner Urena
[2020-04-17] MEDS: carvediloL 12.5 MG TAB PO SCH ×2 (11:30→17:25)
--- NOTE | 2020-04-17 13:16 | Cardiology Progress Note ---
Date of Service April 17, 2020 Subjective He is extubated this morning. He denies any shortness of breath. He notes progressive lower extremity edema and abdominal distention over the last 2 weeks. He notes he eats a normal diet but denied salt loading. In further discussion though it sounds like he is consuming a fair amount of salt in his diet. He denies any lightheadedness or dizziness. He denies any presyncope or syncope. He does snore at home and his notes that he snores. He had witnessed periods of apnea here in the hospital. This is likely contributing to his heart failure as well as his hypertension. He has had no arrhythmias noted on the monitor. He is awake alert this morning and answering questions appropriately. Results & Data Vital Signs (Past 12 Hours) Vital Signs Temp Pulse Resp BP Pulse Ox 04/17/20 12:00 109 H 32 H 150/65 H 92 04/17/20 11:00 109 H 142/71 H 97 04/17/20 10:01 107 H 145/86 H 95 04/17/20 09:02 99 H 17 93 04/17/20 09:00 99 H 144/90 H 92 04/17/20 08:00 37.8 C H 97 H 136/83 90 04/17/20 07:05 98 H 13 91 04/17/20 07:00 97 H 138/85 91 04/17/20 06:00 88 138/75 94 04/17/20 05:00 89 132/73 93 04/17/20 04:56 89 16 93 04/17/20 04:00 37.0 C 89 141/86 H 95 04/17/20 03:00 87 138/79 93 04/17/20 02:00 87 131/84 94 04/17/20 01:43 88 16 94 H EENT: 2+ carotid upstrokes no evidence of carotid bruits. His jugular venous pressure could not be assessed next line lungs: Crackles in the bases bilaterally no rhonchi or wheezing Heart: Regular rate and rhythm no appreciable murmurs rubs or gallops the second heart sound was not accentuated Abdomen: Distended nontender firm positive bowel sounds Extremities: pitting edema to the thighs bilaterally with chronic stasis changes of his lower extremities Psychiatric: His affect appeared appropriate Impressions: 1.Likely diastolic and right-sided heart failure 2. obstructive sleep apnea and obesity hypoventilation syndrome 3.Vent dependent respiratory failure secondary to Hypercapnic respiratory failure 4. History of alcohol use 5. Prior history of CVA with negative device interrogations of his implantable loop recorder for arrhythmias I would continue with loop diuretics. He is to receive 40 mg of Lasix this evening yesterday he received Diamox in light of his elevated bicarb. I do believe some of his bicarb is related to chronic CO2 retention likely from obesity hypoventilation syndrome and significant sleep apnea. I agree that he should wear CPAP here in the hospital when he is sleeping. He does need an outpatient sleep study. His magnesium and potassium have been supplemented. Depending on his labs tomorrow as he does not look excessively prerenal today we can increase his Lasix to 40 mg IV twice daily. We will need to closely monitor his electrolytes. Dr. Walker will return tomorrow to continue his care. This was all discussed with the companion team and the nursing staff.
--- NOTE | 2020-04-17 15:48 | Hospitalist Progress Note ---
Date of Service April 17, 2020 Assessment & Plan (1) Acute on chronic respiratory failure with hypoxia and hypercapnia: developed hypercapnia with hypoxic resp failure -due to combination of decomensated diastolic CHF /vol overload /CO2 retention due to inderlying LUIS E /obesity hypoventilation syndrome pt failed bipap trial required mechanical ventilation extubated appreciate input from Pulm /Crtitical care (2) Acute CHF: admitted with vol overload , increased lower ext edema , SOB , RIVAS , Cxray shows bilat pulm congestion acute decompensation of diastolic CHF ( HFpEF ) last echo 08/2018 revealed normal LVEF, No RWMA, moderate concentric LVH, grade I diastolic dysfunction) repeat ECHO : EF 55-60% severe concentric LV hypertrophy elevated PA pressure continue diuresis with IV Lasix pulm HTN possible due to obstructive sleep apnea /obesity hypoventilation syndrome cont Bipap at night (3) DM type 2 (diabetes mellitus, type 2): Last A1c 8.7 on 04/02/2020 pharmacy following for glycemic management (4) CVA (cerebral vascular accident): History of Left medulla CVA, Wallenberg syndrome in 08/2018 (5) Alcohol abuse: History of daily alcohol use AWSS scale to monitor for withdrawal sx prn lorazepam (6) DVT prophylaxis: SQ Heparin code status : full code DISPOSITION: ordered for PT/OT eval for need for rehab prior to discharge home Admission and Anticipated Discharge Date Admission Date: April 15, 2020 Subjective awake and alert doing well on 2 L 02 via nasal canula denies of any chest pain or SOB no cough , no fever or chills Physical Exam Constitutional: WD/WN, vitals as above Eyes: PERRL, conjunctivae normal, anicteric sclerae ENMT: external ear and nose normal, oropharynx normal Neck: trachea midline, no thyromegaly Respiratory: Auscultation: + diminished lung sounds Cardiovascular: Rate/Rhythm: regular rate and regular rhythm Extremities: + pedal edema and + edema Gastrointestinal (Abdomen): Percussion/Palpation: abdomen soft; abdomen nontender Neurologic: PERRL, EOMI, accommodation nl, no face palsy, no dysarthria Psychiatric: A+Ox3, euthymic affect Results & Data Results & Data ([facility]) Vital Signs (Past 12 Hours) Vital Signs Temp Pulse Resp BP Pulse Ox 04/17/20 13:30 36.9 C 103 H 29 H 112/69 93 04/17/20 12:00 109 H 32 H 150/65 H 92 04/17/20 11:00 109 H 142/71 H 97 04/17/20 10:01 107 H 145/86 H 95 04/17/20 09:02 99 H 17 93 04/17/20 09:00 99 H 144/90 H 92 04/17/20 08:00 37.8 C H 97 H 136/83 90 04/17/20 07:05 98 H 13 91 04/17/20 07:00 97 H 138/85 91 04/17/20 06:00 88 138/75 94 04/17/20 05:00 89 132/73 93 04/17/20 04:56 89 16 93 04/17/20 04:00 37.0 C 89 141/86 H 95
[2020-04-17] MEDS ORDERED: POTASSIUM CHLORIDE 20 MEQ TABCR PO ONE (18:00)
[2020-04-17] MEDS ORDERED: FUROSEMIDE 40 MG in SYRINGE 0 ML IV ONE (18:00)
[2020-04-17] MEDS: INSULIN GLARGINE 100 UNIT/ML VIAL SC SCH (21:02)
[2020-04-17] MEDS: ATORVASTATIN 40 MG TAB PO SCH (21:03)
[2020-04-18] MEDS: HEPARIN SOD 5,000 UNIT/0.5 ML VIAL SQ SCH ×3 (05:54→20:27)
[2020-04-18] MEDS: CLOPIDOGREL BISULFATE 75 MG TAB PO SCH (07:22)
[2020-04-18] MEDS: FUROSEMIDE 40 MG in SYRINGE 0 ML IV SCH ×3 (07:22→20:24)
[2020-04-18] MEDS: LACTULOSE SYRUP 30 GM/45 ML UDP PO SCH ×2 (07:22→20:23)
[2020-04-18] MEDS: POTASSIUM CHLORIDE 20 MEQ TABCR PO SCH (07:22)
[2020-04-18] MEDS: carvediloL 12.5 MG TAB PO SCH ×2 (07:22→17:18)
[2020-04-18 08:27] LABS: Albumin Level 2.2 gm/dl (3.4-5.0); BUN Creatinine Ratio 19.2 (10-20); Calcium 8.8 mg/dl (8.5-10.1); Creatinine Clr Calc Pharmacy 215.5 ml/min; Est GFR (African American) 148.5; Est GFR (Non-African American) 128.1; Magnesium 1.9 mg/dl (1.8-2.4); Potassium 3.9 mmol/L (3.5-5.1)
[2020-04-18 08:31] LABS: Albumin Globulin Ratio 0.5 (0.9-2); Globulin 4.2 gm/dl (2.5-4.0); Total Protein 6.4 gm/dl (6.4-8.2)
[2020-04-18] MEDS ORDERED: INSULIN GLARGINE SOLOSTAR 100 UNITS/ML 3 ML PEN SC ONE (09:00)
[2020-04-18] MEDS: INSULIN ASPART 100 UNITS/ML 3 ML PEN SC SCH ×4 (09:39→20:25)
--- NOTE | 2020-04-18 11:14 | Pharmacy Report ---
Glycemic Control Progress Note - Date of Service April 18, 2020 - Scope Glycemic Pharmacist consulted for glycemic control to write orders per [facility] inpatient glycemic control protocol. - Objective Accuchecks BSG(last 24 hours):: 04/17/20 04/17/20 04/17/20 12:17 16:48 20:40 Glucose POC Glucose 89 155 H 159 H 04/18/20 04/18/20 07:17 07:20 Glucose 122 H POC Glucose 136 H HbA1c:: Hemoglobin A1c 9.0 % (4.5-5.6) H 04/16/20 02:50 - Recent Pertinent Medications The patient is currently receiving: * Basal insulin: Lantus 25 units every 24 hours (in the evening) * Correctional Insulin: Novolog Correction per scale ACHS Goal Range: Low 110 mg/dL - High 140 mg/dL Correction Factor: 15 mg/dL/unit * Prandial insulin: Per carb ratio of 1 unit per 5 grams CHO consumed - Outpatient Anti-Diabetic Meds Lantus 60 units SQ BID Novolog 25 units with breakfast, 28 units with lunch, 32 units with dinner + CF of 18 with BSG > 130 mg/dL metformin 1000 mg BID Jardiance 25 mg daily - Assessment & Plan ASSESSMENT: * See progress note from 04/15/2020 for more background info, in short: * Pt receiving SQ basal bolus insulin regimen for hyperglycemia secondary to baseline DM (outpatient regimen on hold). Patient was intubated 04/16-04/17. Now extubated and tolerating T2DM. * Patient is currently receiving an average of 40 units of insulin per day * 25 units of basal insulin * 15 units of prandial/correctional insulin * BSGs ranging 77 - 159 mg/dl over the past 24hrs * Changes needed to insulin regimen: * AM Fasting BSG = 136 mg/dl. This is in goal range for patient based on inpatient targets and co-morbidities. The patient only received 25 units of Lantus yesterday; he received 45 units on 04/16/2020. It appears that basal rate is somewhere around 40-50 units. Will plan for that today with Lantus 20 units in the morning and then scale for the evening. * Post-prandial BSGs are in range therefore no changes needed to CF/CR. * Total daily dose = ? units. Expect to change with increased oral intake. PLAN FOR INPATIENT GLYCEMIC CONTROL: * Lantus 20 units SQ qAM + Lantus 20-30 units SQ HS * Continuing correction factor of 15 mg/dl/unit * Continuing carb ratio of 1 unit per 5 grams CHO consumed * Continuing goal range of Low 110 mg/dL - High 140 mg/dL * Please note that the plan above was derived based on current level of insulin resistance and hospital stress. These recommendations are appropriate for inpatient admission only. Plan of care upon discharge will need to be reassessed to avoid potential outpatient hypo/hyperglycemia. Thank you.
--- NOTE | 2020-04-18 11:29 | Pulmonology Progress Note ---
Date of Service April 18, 2020 Assessment & Plan (1) Acute on chronic respiratory failure with hypoxia and hypercapnia: 49-year-old male who was admitted to the ICU intubated for his hypercapnic hypoxic respiratory failure. Patient was extubated on 04/17/2020 --Acute on chronic hypoxic hypercapnic respiratory failure Patient is not on any benzodiazepines or opioids at home I think the chronic hypercapnia is secondary to LUIS E and OHS on top of diastolic CHF Continue with O2 supplementation to keep oxygen saturation around 88 to 92% BiPAP nightly and PRN shortness of breath Diuretics as tolerated Follow cardiology recommendations --LUIS E/OHS Patient's BMI is 36.3, patient's PCO2 was greater than 45 on multiple occasions and bicarb in the serum greater than 40. (Patient was given 3 doses of acetazolamide) This likely goes with the picture of OHS Patient is a non-smoker, denies any personal history of asthma --Pulmonary hypertension Likely type II with a component of OHS and LUIS E Continue with treatment as above Plan: Given that the patient was intubated because of hypercapnic respiratory failure with high probability of LUIS E and OHS it is recommended that the patient goes home on BiPAP prior to discharge. This is led to decrease in mortality in such patients of group. Social work consult to get BiPAP for the patient. For the rhonchi that the patient had on physical exam will give him flutter valve and Mucinex. Patient will benefit from physical therapy. (2) Obesity hypoventilation syndrome: Admission and Anticipated Discharge Date Admission Date: April 15, 2020 Subjective Patient seen and examined at bedside. No acute distress, no adverse events overnight. Patient denies any chest pain, shortness of breath is improved. Denies any cough. No dizziness, no headache, no nausea or vomiting. Good appetite. Patient used BiPAP overnight. Tolerating it well. Review of Systems Review of Systems: All systems reviewed & are unremarkable except as noted in HPI & below Physical Exam Physical Exam: Constitutional: No acute distress HEENT: EOMI, PERRLA Respiratory system: Decreased air entry bilaterally, no wheeze, no crackles, positive rhonchi appreciated bilaterally CVS: S1-S2 positive, no murmurs or gallops Abdomen: Soft, nontender, nondistended, positive bowel sounds x4 Extremities: +2 pulses bilaterally radialis/ dorsalis pedis, no cyanosis, +3 pit ting edema bilateral lower extremity Neuro: Awake alert oriented x3 Psych: Normal mood and affect G/U: No Sommer Skin: no rashes, warm and dry Lymphatic: no cervical or axillary lymphadenopathy Results & Data Results & Data ([facility]) Vital Signs (Past 12 Hours) Vital Signs Temp Pulse Pulse Resp BP Pulse Ox 04/18/20 11:15 37.5 C 102 H 18 120/71 93 04/18/20 10:22 92 04/18/20 07:25 36.7 C 95 H 20 131/80 97 04/18/20 03:56 37.3 C 94 H 18 119/72 95 04/18/20 01:41 102 H 18 93 04/17/20 23:28 100 H 04/17/20 04:00 04/18/20 07:20 PG Care Time/CCT Total # of Minutes Spent Total Time Spent with Patient: Total time spent is greater than 50% in coordination of care (as documented) at patient's floor/unit and/or counseling patient: Coding Level of Care Code 71601 Subseq Hosp Care Lvl 3 Diagnoses Acute on chronic respiratory failure with hypoxia and hypercapnia J96.21; J96.22 Obesity hypoventilation syndrome E66.2
--- NOTE | 2020-04-18 12:09 | Cardiology Progress Note ---
Date of Service April 18, 2020 Assessment & Plan (1) CHF (congestive heart failure): Clinically he appears markedly improved. He was intubated couple of days ago but has been ambulatory without limiting dyspnea. His lung examination is relatively benign today. He continues to diurese quite well with stable renal function. He has an element of peripheral edema and would seem reasonable to continue his diuresis as long as his renal function electrolytes stay stable. Bicarbonate appears better today as well. It is unclear what precipitated the decompensation. There was some concern regarding a high sodium intake. Perhaps poorly controlled blood pressure as well. He may require transition to a higher dose of oral diuretic at the time of discharge. 40 milligrams twice daily may be reasonable. He will require close follow-up in the outpatient setting to make sure he continues his diuresis and clinical improvement. Based on his echocardiogram, it seem that the likely decompensation is related to diastolic heart failure. This is in setting of severe LVH. He has a history of symptomatic bradycardia, but current heart rates appear high. This is likely related to his decompensated state. Think it would be possible to attempt an increase in his carvedilol once he is euvolemic. Admission and Anticipated Discharge Date Admission Date: April 15, 2020 Subjective This morning patient claims to be feeling well. He was ambulatory in the hallway and denies significant breathing difficulty. States that his breathing is almost back to normal. He still has an element of edema. Review of Systems Review of Systems: Per HPI. Lots of urination. Physical Exam Physical Exam: The patient is alert and oriented. Mood and affect appeared normal. He answered all questions appropriately. Obese HEENT: Pupils are equal and reactive to light and accommodation. Extraocular movements are intact. The sclerae are anicteric. Neuro: Cranial nerves intact Lungs: Clear to auscultation bilaterally. He has good air movement without use of accessory muscles. Occasional crackle at the bases bilaterally. Normal respiratory effort. Cardiac: Heart demonstrates a regular rate and rhythm. Normal S1 and S2. No murmurs on examination. Pulses: Diminished radial pulses bilaterally. Extremities: There was no evidence of hypoperfusion. There is no cyanosis or clubbing. Peripheral edema involving the hands arms and legs. Skin: I did not appreciate any rashes on examination today. Results & Data ([facility]) Vital Signs (Past 12 Hours) Vital Signs Temp Pulse Pulse Resp BP Pulse Ox 04/18/20 11:15 37.5 C 102 H 18 120/71 93 04/18/20 10:22 92 04/18/20 07:25 36.7 C 95 H 20 131/80 97 04/18/20 03:56 37.3 C 94 H 18 119/72 95 04/18/20 01:41 102 H 18 93 Laboratory Results Abnormal Lab Results 04/17/20 04/17/20 04/17/20 12:17 16:48 20:40 Sodium Potassium Chloride Carbon Dioxide Anion Gap BUN Creatinine Est Cr Clr Drug Dosing Est GFR ( Amer) Est GFR (Non-Af Amer) BUN/Creatinine Ratio Glucose POC Glucose 89 155 H 159 H Calcium Magnesium Total Bilirubin AST ALT Alkaline Phosphatase Total Protein Albumin Globulin Albumin/Globulin Ratio 04/18/20 04/18/20 04/18/20 07:17 07:20 11:32 Sodium 137 Potassium 3.9 D Chloride 100 Carbon Dioxide 32 Anion Gap 5.0 BUN 10 D Creatinine 0.50 L Est Cr Clr Drug Dosing 215.5 Est GFR ( Amer) 148.5 Est GFR (Non-Af Amer) 128.1 BUN/Creatinine Ratio 19.2 Glucose 122 H POC Glucose 136 H 191 H Calcium 8.8 Magnesium 1.9 Total Bilirubin 1.0 AST 238 H ALT 95 H Alkaline Phosphatase 75 Total Protein 6.4 Albumin 2.2 L Globulin 4.2 H Albumin/Globulin Ratio 0.5 L PG Care Time/CCT Total # of Minutes Spent Total Time Spent with Patient: Total time spent is greater than 50% in coordination of care (as documented) at patient's floor/unit and/or counseling patient: Coding Level of Care Code 10413 Subseq Hosp Care Lvl 3 Diagnoses CHF (congestive heart failure) I50.9 Heart failure chronicity: unspecified Heart failure type: unspecified (1) CHF (congestive heart failure) Heart failure chronicity: unspecified Heart failure type: unspecified Qualified Code(s): I50.9 - Heart failure, unspecified
[2020-04-18] MEDS ORDERED: SERTRALINE HCL 50 MG TABLET PO ONE (15:19)
--- NOTE | 2020-04-18 17:30 | Hospitalist Progress Note ---
Date of Service April 18, 2020 Assessment & Plan (1) Acute on chronic respiratory failure with hypoxia and hypercapnia: -due to combination of decomensated diastolic CHF /vol overload /CO2 retention due to inderlying LUIS E /obesity hypoventilation syndrome pt failed bipap trial /required mechanical ventilation for short time extubated has been on 2 L 02 via nasal canula cont diuresis , Biapap at night (2) Acute CHF: vol status improved after diuresis admitted with vol overload , increased lower ext edema , SOB , RIVAS , Cxray shows bilat pulm congestion acute decompensation of diastolic CHF ( HFpEF ) last echo 08/2018 revealed normal LVEF, No RWMA, moderate concentric LVH, grade I diastolic dysfunction) repeat ECHO : EF 55-60% severe concentric LV hypertrophy elevated PA pressure - pulm HTN possible due to obstructive sleep apnea /obesity hypoventilation syndrome cont Bipap at night nocturnal pulse oximetry ordered continue diuresis with IV Lasix cardiology following (3) DM type 2 (diabetes mellitus, type 2): Last A1c 8.7 on 04/02/2020 insulin SSI (4) CVA (cerebral vascular accident): History of Left medulla CVA, Wallenberg syndrome in 08/2018 (5) Alcohol abuse: History of daily alcohol use no s/s of withdrawl (6) DVT prophylaxis: SQ Heparin code status : full code DISPOSITION: continues to do well PT/OT eval requested Admission and Anticipated Discharge Date Admission Date: April 15, 2020 Subjective Pt reports of feeling better SOB has improved still has RIVAS , minimum orthopnea no cough , no fever or chills Review of Systems Review of Systems: All systems reviewed & are unremarkable except as noted in HPI & below Physical Exam Constitutional: WD/WN, vitals as above Eyes: PERRL, conjunctivae normal, anicteric sclerae ENMT: external ear and nose normal, oropharynx normal Neck: trachea midline, no thyromegaly Respiratory: + cough Auscultation: + diminished lung sounds Cardiovascular: Rate/Rhythm: regular rate and regular rhythm Extremities: + pedal edema and + edema Gastrointestinal (Abdomen): Percussion/Palpation: abdomen soft; abdomen nontender Neurologic: PERRL, EOMI, accommodation nl, no face palsy, no dysarthria Psychiatric: A+Ox3, euthymic affect Results & Data Results & Data ([place]) Vital Signs (Past 12 Hours) Vital Signs Temp Pulse Pulse Resp BP Pulse Ox 04/18/20 15:31 101 H 04/18/20 15:12 36.8 C 101 H 20 124/79 94 04/18/20 11:15 37.5 C 102 H 18 120/71 93 04/18/20 10:22 92 04/18/20 07:25 36.7 C 95 H 20 131/80 97
[2020-04-18] MEDS: INSULIN GLARGINE 100 UNIT/ML VIAL SC SCH (20:23)
[2020-04-18] MEDS: ATORVASTATIN 40 MG TAB PO SCH (20:25)
[2020-04-18] MEDS: guaiFENesin 600 MG TABCR PO SCH (20:26)
[2020-04-19] MEDS: HEPARIN SOD 5,000 UNIT/0.5 ML VIAL SQ SCH ×3 (05:18→20:57)
[2020-04-19] MEDS: LACTULOSE SYRUP 30 GM/45 ML UDP PO SCH ×2 (07:30→20:55)
[2020-04-19] MEDS: carvediloL 12.5 MG TAB PO SCH ×2 (07:30→17:05)
[2020-04-19] MEDS: guaiFENesin 600 MG TABCR PO SCH ×2 (07:30→20:59)
[2020-04-19] MEDS: CLOPIDOGREL BISULFATE 75 MG TAB PO SCH (07:30)
[2020-04-19] MEDS: POTASSIUM CHLORIDE 20 MEQ TABCR PO SCH (07:30)
[2020-04-19] MEDS: INSULIN ASPART 100 UNITS/ML 3 ML PEN SC SCH ×4 (08:01→20:56)
[2020-04-19] MEDS: INSULIN GLARGINE SOLOSTAR 100 UNITS/ML 3 ML PEN SC SCH ×2 (08:02→20:56)
[2020-04-19] MEDS: FUROSEMIDE 40 MG in SYRINGE 0 ML IV SCH ×2 (08:56→20:59)
[2020-04-19] MEDS ORDERED: SERTRALINE HCL 50 MG TABLET PO SCH (09:00)
--- NOTE | 2020-04-19 10:33 | Cardiology Progress Note ---
Date of Service April 19, 2020 Assessment & Plan (1) CHF (congestive heart failure): Clinically improved. He still has an element of edema, but pulmonary vascular congestion appears to have resolved. He has diuresed quite aggressively on his current dose of intravenous Lasix delivered twice daily. Think he would be a good candidate for single daily dose of bumetanide 1 milligram. This could be changed tomorrow or even at the time of discharge. Renal function appears to be stable. Blood pressure appears to be well controlled on current medical regimen. He was hypoxic yesterday. May be related to some element pulmonary vascular congestion or intrinsic lung disease. Seems to have desaturation at nighttime which suggest supplemental oxygen and investigation for sleep apnea may be indicated. Patient did request to be discharged today. I think if he had supplemental oxygen at home and was scheduled for follow-up in our Heart failure Clinic within a few days could be safely discharged. As noted above I think a switch of his outpatient Lasix to bumetanide would be good option. Admission and Anticipated Discharge Date Admission Date: April 15, 2020 Subjective This morning patient claims he feeling well. He had some difficulty sleeping simply due to noise. He denies breathing problems today. Not been aware of palpitations. Denies dizziness or lightheadedness. He feels that the swelling in his arms improved. Review of Systems Review of Systems: Per HPI Physical Exam Physical Exam: The patient is alert and oriented. Mood and affect appeared normal. He answered all questions appropriately. Obese HEENT: Pupils are equal and reactive to light and accommodation. Extraocular movements are intact. The sclerae are anicteric. Neuro: Cranial nerves intact Lungs: Clear to auscultation bilaterally. He has good air movement without use of accessory muscles. Occasional crackle at the bases bilaterally. Normal respiratory effort. Cardiac: Heart demonstrates a regular rate and rhythm. Normal S1 and S2. No murmurs on examination. Pulses: Diminished radial pulses bilaterally. Extremities: There was no evidence of hypoperfusion. There is no cyanosis or clubbing. Peripheral edema involving the hands arms and legs. Skin: I did not appreciate any rashes on examination today. Results & Data ([facility]) Vital Signs (Past 12 Hours) Vital Signs Temp Pulse Pulse Resp BP Pulse Ox Pulse Ox 04/19/20 07:21 37.1 C 99 H 18 127/86 95 04/19/20 05:05 37.0 C 100 H 19 136/92 88 L 04/19/20 02:40 96 H 94 04/18/20 23:11 36.9 C 102 H 21 144/84 H 95 Laboratory Results Abnormal Lab Results 04/18/20 04/18/20 04/18/20 11:32 16:13 20:05 POC Glucose 191 H 197 H 303 H* Magnesium 04/18/20 04/18/20 04/19/20 20:06 20:07 06:27 POC Glucose 192 H 195 H Magnesium 1.8 04/19/20 07:41 POC Glucose 185 H Magnesium PG Care Time/CCT Total # of Minutes Spent Total Time Spent with Patient: Total time spent is greater than 50% in coordination of care (as documented) at patient's floor/unit and/or counseling patient: Coding Level of Care Code 14728 Subseq Hosp Care Lvl 3 Diagnoses CHF (congestive heart failure) I50.9 Heart failure chronicity: unspecified Heart failure type: unspecified (1) CHF (congestive heart failure) Heart failure chronicity: unspecified Heart failure type: unspecified Qualified Code(s): I50.9 - Heart failure, unspecified
--- NOTE | 2020-04-19 11:03 | Pharmacy Report ---
Glycemic Control Progress Note - Date of Service April 19, 2020 - Scope Glycemic Pharmacist consulted for glycemic control to write orders per [facility] inpatient glycemic control protocol. - Objective Accuchecks BSG(last 24 hours):: 04/18/20 04/18/20 04/18/20 11:32 16:13 20:05 POC Glucose 191 H 197 H 303 H* 04/18/20 04/18/20 04/19/20 20:06 20:07 07:41 POC Glucose 192 H 195 H 185 H HbA1c:: Hemoglobin A1c 9.0 % (4.5-5.6) H 04/16/20 02:50 - Recent Pertinent Medications The patient is currently receiving: * Basal insulin: Lantus 20-30 units every 12 hours * Correctional Insulin: Novolog Correction per scale ACHS Goal Range: Low 110 mg/dL - High 140 mg/dL Correction Factor: 15 mg/dL/unit * Prandial insulin: Per carb ratio of 1 unit per 5 grams CHO consumed - Outpatient Anti-Diabetic Meds Lantus 60 units BID plus Novolog + CF of 18 BSG > 130 mg/dL Jardiance 25 mg daily metformin 1 gm PO BID - Assessment & Plan ASSESSMENT: * See progress note from 04/15/2020 for more background info, in short: * Pt receiving SQ basal bolus insulin regimen for hyperglycemia secondary to baseline DM (outpatient regimen on hold). * Patient is currently receiving an average of 90 units of insulin per day * 50 units of basal insulin * 40 units of prandial/correctional insulin * BSGs ranging 136 - 197 mg/dl over the past 24hrs * Changes needed to insulin regimen: * AM Fasting BSG = 185 mg/dl. This is above goal range for patient based on inpatient targets and co-morbidities. Therefore Basal insulin will be increased by 20% to 30 units SQ BID. * Post-prandial BSGs trended upwards yesterday and then stayed stable. Tighten CR slightly to 1 units per 4 grams of carbohydrates consumed. * Total daily dose = 100-120 units. Increased appropriately. * Additional notes / comments: hold oral medications due to aggressive diuresis PLAN FOR INPATIENT GLYCEMIC CONTROL: * INCREASING Lantus to 30 units SQ BID * Continuing correction factor of 15 mg/dl/unit * TIGHTENING carb ratio to 1 unit per 4 grams CHO consumed * Continuing goal range of Low 110 mg/dL - High 140 mg/dL RECOMMENDATIONS FOR DISCHARGE: * Continue to follow-up with [facility] clinic as an outpatient Thank you.
--- NOTE | 2020-04-19 11:52 | Pulmonology Progress Note ---
Date of Service April 19, 2020 Assessment & Plan (1) Acute on chronic respiratory failure with hypoxia and hypercapnia: 49-year-old male who was admitted to the ICU intubated for his hypercapnic hypoxic respiratory failure. Patient was extubated on 04/17/2020 --Acute on chronic hypoxic hypercapnic respiratory failure Patient is not on any benzodiazepines or opioids at home I think the chronic hypercapnia is secondary to LUIS E and OHS on top of diastolic CHF Continue with O2 supplementation to keep oxygen saturation around 88 to 92% BiPAP nightly and PRN shortness of breath Diuretics as tolerated Follow cardiology recommendations --LUIS E/OHS Patient's BMI is 36.3, patient's PCO2 was greater than 45 on multiple occasions and bicarb in the serum greater than 40. (Patient was given 3 doses of acetazolamide) This likely goes with the picture of OHS Patient is a non-smoker, denies any personal history of asthma --Pulmonary hypertension Likely type II with a component of OHS and LUIS E Continue with treatment as above Plan: Continue with diuresis as tolerated. Given that the patient was intubated because of hypercapnic respiratory failure with high probability of LUIS E and OHS it is recommended that the patient goes home on BiPAP prior to discharge. This has led to decrease in mortality in such group of patients. Patient can follow-up outpatient with pulmonary for his underlying hypoxia and high probability of LUIS E/OHS No further recommendations from pulmonary perspective. Will sign off, recall if needed. (2) Obesity hypoventilation syndrome: Admission and Anticipated Discharge Date Admission Date: April 15, 2020 Subjective Patient seen and examined at bedside. No acute distress, no adverse events overnight. Overnight he was not on BiPAP as they were doing night pulse oximetry. Patient had episode of desaturation going up to 83%. Denies any chest pain, shortness of breath is improved. He is walking around. Patient was saturating 93% on 2 L nasal cannula at rest with heart rate of 100. Review of Systems Review of Systems: All systems reviewed & are unremarkable except as noted in HPI & below Physical Exam Physical Exam: Constitutional: No acute distress HEENT: EOMI, PERRLA Respiratory system: Decreased air entry bilaterally, no wheeze, mild crackles bilateral lower lobes, no rhonchi today CVS: S1-S2 positive, no murmurs or gallops Abdomen: Soft, nontender, nondistended, positive bowel sounds x4 Extremities: +2 pulses bilaterally radialis/ dorsalis pedis, no cyanosis, +3 pitting edema bilateral lower extremity Neuro: Awake alert oriented x3 Psych: Normal mood and affect G/U: No Sommer Skin: no rashes, warm and dry Lymphatic: no cervical or axillary lymphadenopathy Results & Data Results & Data ([facility]) Vital Signs (Past 12 Hours) Vital Signs Temp Pulse Pulse Resp BP BP Pulse Ox 04/19/20 11:24 36.7 C 97 H 18 146/88 H 93 04/19/20 07:21 37.1 C 99 H 18 127/86 95 04/19/20 05:05 37.0 C 100 H 19 136/92 88 L 04/19/20 02:40 96 H Pulse Ox 04/19/20 11:24 04/19/20 07:21 04/19/20 05:05 04/19/20 02:40 94 04/17/20 04:00 04/18/20 07:20 PG Care Time/CCT Total # of Minutes Spent Total Time Spent with Patient: Total time spent is greater than 50% in coordination of care (as documented) at patient's floor/unit and/or counseling patient: Coding Level of Care Code 30809 Subseq Hosp Care Lvl 3 Diagnoses Acute on chronic respiratory failure with hypoxia and hypercapnia J96.21; J96.22 Obesity hypoventilation syndrome E66.2
--- NOTE | 2020-04-19 16:30 | Hospitalist Progress Note ---
Date of Service April 19, 2020 Assessment & Plan (1) Acute on chronic respiratory failure with hypoxia and hypercapnia: -due to combination of decomensated diastolic CHF /vol overload /CO2 retention due to inderlying LUIS E /obesity hypoventilation syndrome pt failed bipap trial /required mechanical ventilation for short time extubated was on 2 L 02 via nasal canula nocturnal pulse oximetry shows no significant destauration off oxygen , remains in room air 2 step exercise shows no need for home o2 (2) Acute CHF: acute decompensation of diastolic CHF ( HFpEF ) vol status improved after diuresis admitted with vol overload , increased lower ext edema , SOB , RIVAS , Cxray shows bilat pulm congestion last echo 08/2018 revealed normal LVEF, No RWMA, moderate concentric LVH, grade I diastolic dysfunction) repeat ECHO : EF 55-60% severe concentric LV hypertrophy elevated PA pressure - pulm HTN possible due to obstructive sleep apnea /obesity hypoventilation syndrome continue diuresis with IV Lasix cardiology following will be changed to PO torsemide on discharge per cardiology (3) DM type 2 (diabetes mellitus, type 2): Last A1c 8.7 on 04/02/2020 insulin SSI (4) CVA (cerebral vascular accident): History of Left medulla CVA, Wallenberg syndrome in 08/2018 on aspirin no focal deficit (5) Alcohol abuse: History of daily alcohol use no s/s of withdrawl (6) DVT prophylaxis: SQ Heparin code status : full code DISPOSITION: possible discharge home tomorrow Admission and Anticipated Discharge Date Admission Date: April 15, 2020 Subjective No complain of SOB or RIVAS eager to be discharged home improvement of lower extremity edema no cough no fever or chills Physical Exam Constitutional: WD/WN, vitals as above Eyes: PERRL, conjunctivae normal, anicteric sclerae ENMT: external ear and nose normal, oropharynx normal Neck: trachea midline, no thyromegaly Respiratory: Auscultation: + diminished lung sounds Cardiovascular: Rate/Rhythm: regular rate and regular rhythm Gastrointestinal (Abdomen): Percussion/Palpation: abdomen soft; abdomen nontender Neurologic: PERRL, EOMI, accommodation nl, no face palsy, no dysarthria Psychiatric: A+Ox3, euthymic affect Results & Data Results & Data ([place]) Vital Signs (Past 12 Hours) Vital Signs Temp Pulse Pulse Pulse Pulse Pulse Resp 04/19/20 15:54 101 H 04/19/20 15:41 36.7 C 65 17 04/19/20 13:10 103 H 105 H 103 H 04/19/20 11:24 36.7 C 97 H 18 04/19/20 07:21 37.1 C 99 H 18 04/19/20 05:05 37.0 C 100 H 19 Resp Resp Resp BP BP Pulse Ox Pulse Ox 04/19/20 15:54 04/19/20 15:41 150/97 H 100 04/19/20 13:10 20 20 16 91 04/19/20 11:24 146/88 H 93 04/19/20 07:21 127/86 95 04/19/20 05:05 136/92 88 L Pulse Ox Pulse Ox 04/19/20 15:54 04/19/20 15:41 04/19/20 13:10 90 90 04/19/20 11:24 04/19/20 07:21 04/19/20 05:05
[2020-04-19] MEDS: ATORVASTATIN 40 MG TAB PO SCH (20:59)
[2020-04-20] MEDS: HEPARIN SOD 5,000 UNIT/0.5 ML VIAL SQ SCH ×2 (05:04→12:17)
[2020-04-20] MEDS: LACTULOSE SYRUP 30 GM/45 ML UDP PO SCH (07:27)
[2020-04-20] MEDS: guaiFENesin 600 MG TABCR PO SCH (07:27)
[2020-04-20] MEDS: POTASSIUM CHLORIDE 20 MEQ TABCR PO SCH (07:27)
[2020-04-20] MEDS: CLOPIDOGREL BISULFATE 75 MG TAB PO SCH (07:27)
[2020-04-20] MEDS: carvediloL 12.5 MG TAB PO SCH ×2 (07:27→17:13)
[2020-04-20] MEDS: FUROSEMIDE 40 MG in SYRINGE 0 ML IV SCH ×2 (07:39→18:37)
--- NOTE | 2020-04-20 08:03 | Hospitalist Progress Note ---
Date of Service April 20, 2020 Assessment & Plan Admission and Anticipated Discharge Date Admission Date: April 15, 2020 Subjective ATTENDING NOTE : pt was not on home 02 desaturation spo2 80% noted last evening in room air requiring 2 L 02 out patient pulmonology follow up and sleep study needs arrangements for home 02 and bipap at night with 2 L02 Dipti Allen MD Results & Data Results & Data ([facility]) Vital Signs (Past 12 Hours) Vital Signs Temp Pulse Pulse Resp BP BP Pulse Ox 04/20/20 07:34 36.8 C 96 H 20 136/91 97 04/20/20 04:29 36.5 C 97 H 18 129/89 90 04/19/20 23:11 36.7 C 97 H 18 146/82 H 93 04/19/20 22:20 103 H 04/19/20 21:00 88 L 04/19/20 20:58 37.1 C 91 H 18 136/94 91
[2020-04-20] MEDS: INSULIN ASPART 100 UNITS/ML 3 ML PEN SC SCH ×3 (08:25→17:12)
[2020-04-20] MEDS: INSULIN GLARGINE SOLOSTAR 100 UNITS/ML 3 ML PEN SC SCH (08:26)
--- NOTE | 2020-04-20 09:39 | Pulmonology Progress Note ---
Date of Service April 20, 2020 Assessment & Plan (1) Acute on chronic respiratory failure with hypoxia and hypercapnia: 49-year-old male who was admitted to the ICU intubated for his hypercapnic hypoxic respiratory failure. Patient was extubated on 04/17/2020 --Acute on chronic hypoxic hypercapnic respiratory failure Patient is not on any benzodiazepines or opioids at home I think the chronic hypercapnia is secondary to LUIS E and OHS on top of diastolic CHF Continue with O2 supplementation to keep oxygen saturation around 88 to 92% BiPAP nightly and PRN shortness of breath Diuretics as tolerated Follow cardiology recommendations --LUIS E/OHS Patient's BMI is 36.3, patient's PCO2 was greater than 45 on multiple occasions and bicarb in the serum greater than 40. (Patient was given 3 doses of acetazolamide) This likely goes with the picture of OHS Patient is a non-smoker, denies any personal history of asthma --Pulmonary hypertension Likely type II with a component of OHS and LUIS E Continue with treatment as above Plan: Continue with diuresis as tolerated. Given that the patient was intubated because of hypercapnic respiratory failure with high probability of LUIS E and OHS it is recommended that the patient goes home on BiPAP prior to discharge. This has led to decrease in mortality in such group of patients. Patient can follow-up outpatient with pulmonary for his underlying hypoxia and high probability of LUIS E/OHS No further recommendations from pulmonary perspective. Will sign off, recall if needed. (2) Obesity hypoventilation syndrome: Admission and Anticipated Discharge Date Admission Date: April 15, 2020 Subjective Patient seen and examined at bedside. No acute distress, no adverse events overnight. Patient was sleeping at the time of examination. On waking up he denied any chest pain, shortness of breath is improved, no cou gh, no fever or chills. Has been urinating well. Good appetite. Patient did not use his BiPAP overnight. Importance of using it every night explained to the patient. Review of Systems Review of Systems: All systems reviewed & are unremarkable except as noted in HPI & below Physical Exam Physical Exam: Constitutional: No acute distress HEENT: EOMI, PERRLA Respiratory system: Decreased air entry bilaterally, no wheeze, mild crackles bilateral lower lobes, no rhonchi today CVS: S1-S2 positive, no murmurs or gallops Abdomen: Soft, nontender, nondistended, positive bowel sounds x4 Extremities: +2 pulses bilaterally radialis/ dorsalis pedis, no cyanosis, +3 pitting edema bilateral lower extremity Neuro: Awake alert oriented x3 Psych: Normal mood and affect G/U: No Sommer Skin: no rashes, warm and dry Lymphatic: no cervical or axillary lymphadenopathy Results & Data Results & Data ([facility]) Vital Signs (Past 12 Hours) Vital Signs Temp Pulse Pulse Resp BP BP Pulse Ox 04/20/20 07:34 36.8 C 96 H 20 136/91 97 04/20/20 04:29 36.5 C 97 H 18 129/89 90 04/19/20 23:11 36.7 C 97 H 18 146/82 H 93 04/19/20 22:20 103 H 04/17/20 04:00 04/18/20 07:20 PG Care Time/CCT Total # of Minutes Spent Total Time Spent with Patient: Total time spent is greater than 50% in coordination of care (as documented) at patient's floor/unit and/or counseling patient: Coding Level of Care Code 32652 Subseq Hosp Care Lvl 2 Diagnoses Acute on chronic respiratory failure with hypoxia and hypercapnia J96.21; J96.22 Obesity hypoventilation syndrome E66.2
--- NOTE | 2020-04-20 11:24 | Pharmacy Report ---
Glycemic Control Progress Note - Date of Service April 20, 2020 - Scope Glycemic Pharmacist consulted for glycemic control to write orders per [facility] inpatient glycemic control protocol. - Objective Accuchecks BSG(last 24 hours):: 04/19/20 04/19/20 04/19/20 11:32 16:38 20:47 POC Glucose 219 H 163 H 207 H 04/20/20 07:27 POC Glucose 132 H HbA1c:: Hemoglobin A1c 9.0 % (4.5-5.6) H 04/16/20 02:50 - Recent Pertinent Medications The patient is currently receiving: * Basal insulin: Lantus 30 units every 12 hours * Correctional Insulin: Novolog Correction per scale ACHS Goal Range: Low 110 mg/dL - High 140 mg/dL Correction Factor: 15 mg/dL/unit * Prandial insulin: Per carb ratio of 1 unit per 4 grams CHO consumed - Outpatient Anti-Diabetic Meds Lantus 60 SQ BID Novolog + CF 18 for BSG > 130 mg/dL metformin 1 gm PO BID Jardiance 25 mg PO daily - Assessment & Plan ASSESSMENT: * See progress note from 04/15/20 for more background info, in short: * Pt receiving SQ basal bolus insulin regimen for hyperglycemia secondary to baseline DM (outpatient regimen on hold). * Patient is currently receiving an average of 117 units of insulin per day * 60 units of basal insulin * 57 units of prandial/correctional insulin * BSGs ranging 163 - 219 mg/dl over the past 24hrs * Changes needed to insulin regimen: * AM Fasting BSG = 132 mg/dl. This is in goal range for patient based on inpatient targets and co-morbidities. Therefore Basal insulin will be continued. * Post-prandial BSGs were not in range last yesterday -- he may require more carbohydrate coverage. I do believe this is from a lack of basal insulin. He received 25 units on the and 50 units on the . This will be the second day of 60 units/day. If still elevated tomorrow then tighten parameters. * Total daily dose = ~120-130 units. * Additional notes / comments: HOLD ORAL AGENTS PLAN FOR INPATIENT GLYCEMIC CONTROL: * Continuing Lantus 30 units SQ BID * Continuing correction factor of 15 mg/dl/unit * Continuing carb ratio of 1 unit per 4 grams CHO consumed * Continuing goal range of Low 110 mg/dL - High 140 mg/dL RECOMMENDATIONS FOR DISCHARGE: * see progress note from 04/19/20 Thank you.
--- NOTE | 2020-04-20 15:14 | Cardiology Progress Note ---
Date of Service April 20, 2020 Assessment & Plan (1) CHF (congestive heart failure): He continues to improve. He effects a good diuresis every day on his current twice daily Lasix. I think we be a good candidate for transition to oral bumetanide. 1 milligrams daily would seem reasonable. He can continue his other medications with a goal of increasing his carvedilol once he appears to be euvolemic. This would improved blood pressure control and perhaps affect improved physiology for was presumed to be diastolic heart failure Arrangements have been made for follow-up in our Heart failure Clinic in order to continue diuresis and manage his volume status. Admission and Anticipated Discharge Date Admission Date: April 15, 2020 Subjective This after the patient claims to be feeling well. He states his breathing is nearly back to baseline. He was ambulatory early today without limiting dyspnea. Review of Systems Review of Systems: Per HPI Physical Exam Physical Exam: The patient is alert and oriented. Mood and affect appeared normal. He answered all questions appropriately. Obese HEENT: Pupils are equal and reactive to light and accommodation. Extraocular movements are intact. The sclerae are anicteric. Neuro: Cranial nerves intact Lungs: Clear to auscultation bilaterally. He has good air movement without use of accessory muscles. Occasional crackle at the bases bilaterally. Normal respiratory effort. Cardiac: Heart demonstrates a regular rate and rhythm. Normal S1 and S2. No murmurs on examination. Pulses: Diminished radial pulses bilaterally. Extremities: There was no evidence of hypoperfusion. There is no cyanosis or clubbing. Peripheral edema involving the hands arms and legs improved. Skin: I did not appreciate any rashes on examination today. Bandages on both lower extremities in the pretibial area. Results & Data ([facility]) Vital Signs (Past 12 Hours) Vital Signs Temp Pulse Pulse Pulse Pulse Pulse Resp 04/20/20 14:59 36.8 C 97 H 04/20/20 12:42 89 108 H 104 H 90 04/20/20 11:14 36.6 C 94 H 20 04/20/20 07:34 36.8 C 96 H 20 04/20/20 04:29 36.5 C 97 H 18 Resp Resp Resp Resp BP BP Pulse Ox 04/20/20 14:59 149/94 H 92 04/20/20 12:42 16 22 20 16 04/20/20 11:14 141/90 H 92 04/20/20 07:34 136/91 97 04/20/20 04:29 129/89 90 Pulse Ox Pulse Ox Pulse Ox Pulse Ox 04/20/20 14:59 04/20/20 12:42 92 90 90 86 L 04/20/20 11:14 04/20/20 07:34 04/20/20 04:29 Laboratory Results Abnormal Lab Results 04/19/20 04/19/20 04/20/20 16:38 20:47 07:27 POC Glucose 163 H 207 H 132 H 04/20/20 11:18 POC Glucose 194 H PG Care Time/CCT Total # of Minutes Spent Total Time Spent with Patient: Total time spent is greater than 50% in coordination of care (as documented) at patient's floor/unit and/or counseling patient: Coding Level of Care Code 17479 Subseq Hosp Care Lvl 2 Diagnoses CHF (congestive heart failure) I50.9 Heart failure chronicity: unspecified Heart failure type: unspecified (1) CHF (congestive heart failure) Heart failure chronicity: unspecified Heart failure type: unspecified Qualified Code(s): I50.9 - Heart failure, unspecified
--- NOTE | 2020-04-20 15:51 | Hospitalist Progress Note ---
Date of Service April 20, 2020 Assessment & Plan (1) Acute on chronic respiratory failure with hypoxia and hypercapnia: Fue to combination of decompensated diastolic CHF /vol overload /CO2 retention due to inderlying LUIS E /obesity hypoventilation syndrome ABG on admission with pH 7.26 and Pco2 95 Was intubated on mechanical ventilation after failed Bipap Extubated on 04/17 and has been doing ok pulmonology on board Recommended to continue Bipap at night and prn 2 step exercise done and pt required oxygen at night Continue with O2 supplementation to keep oxygen saturation around 88 to 92% Scripts given to block and case maker for the Bipap and oxygen supplement Follow up with pulmonology as outpatient (2) Acute CHF: Acute decompensation of diastolic CHF Diureisis well with IV lasix ECHO showed LV wall motion is normal. Severe concentric LVH. EF 55-60% Cardiology on board Case discussed with cardiology recommended to transition to Butamide 1 mg daily on discharge Continue Carvedilol Follow up with cardiology inn the Heart failure Clinic in order to continue diuresis and manage his volume status. (3) DM type 2 (diabetes mellitus, type 2): Last A1c 8.7 on 04/02/2020 On lantus and insulin sliding scale Pharmacy on board for glycemic management Continue monitor BS (4) CVA (cerebral vascular accident): History of Left medulla CVA, Wallenberg syndrome in 08/2018 Continue aspirin and plavix Stable (5) Alcohol abuse: History of daily alcohol use No s/s of alcohol withdrawal Counseling on smoking cessation (6) DVT prophylaxis: SQ Heparin code status : full code DISPOSITION: Discharge home today Follow up with cardiology Admission and Anticipated Discharge Date Admission Date: April 15, 2020 Subjective Pt was seen and examined Lying in bed with no distress Pt said that his breathing is much better He said that he feels much better compare to when he came He said that he has been diuresis well He had 2 step done that required oxygen supplement Denies any chest pain, palpitation, dizziness and fever Physical Exam Physical Exam: General- No acute distress, obese Head- atraumatic Eyes- PERRL, EOMI, ENT- oropharynx clear Neck- supple, no JVD Lungs- diminished lung sound Heart- regular rhythm; no murmur Abdomen- normal bowel sounds, soft, nontender Extremities- no calf tenderness Neuro- alert, oriented x 3; PERRL, EOMI; no facial palsy; no dysarthria Skin- warm & dry Results & Data Results & Data ([facility]) Vital Signs (Past 12 Hours) Vital Signs Temp Pulse Pulse Pulse Pulse Pulse Pulse 04/20/20 15:14 103 H 04/20/20 14:59 36.8 C 97 H 04/20/20 12:42 89 108 H 104 H 90 04/20/20 11:14 36.6 C 94 H 04/20/20 07:34 36.8 C 96 H 04/20/20 04:29 36.5 C 97 H Resp Resp Resp Resp Resp BP BP 04/20/20 15:14 04/20/20 14:59 22 149/94 H 04/20/20 12:42 16 22 20 16 04/20/20 11:14 20 141/90 H 04/20/20 07:34 20 136/91 04/20/20 04:29 18 129/89 Pulse Ox Pulse Ox Pulse Ox Pulse Ox Pulse Ox 04/20/20 15:14 04/20/20 14:59 92 04/20/20 12:42 92 90 90 86 L 04/20/20 11:14 92 04/20/20 07:34 97 04/20/20 04:29 90
[2020-04-20] MEDS ORDERED: Nursing to Pharmacy Communication SCH (17:30)
--- NOTE | 2020-04-22 08:54 | Discharge Summary ---
Date of Service April 20, 2020 Admission HPI Per Admitting Provider This is a 49-year-old male who has significant PMH of T2DM, HTN, HLD, history of CVA Wallenberg syndrome, gout, EtOH abuse, fatty liver disease who presents to ED secondary to worsening shortness of breath and lower extremity edema x2 weeks. Approximately 2 weeks ago he noted increasing lower extremity swelling. Swelling has now extended up into abdominal wall. He feels overall abdominal fullness and bloating. Does complain of early satiety. He also complains of shortness of breath with exertion and orthopnea. He denies any other recent illness, fever, chills, sweats, lightheadedness, dizziness, chest pain, palpitations, cough, nausea, vomiting, abdominal pain. He has noticed decreased urination but no urgency, dysuria, hematuria, melena, hematochezia or diarrhea. Approximately 1 week ago he was started on Lasix 40 mg daily and he did not note a significant increase in urination. He does not monitor his weight on a regular basis. He has also noticed increased redness on bilateral lower extremities with increasing edema. He denies prior history of CHF. He did sustain CVA involving left medulla on 08/22/2018 in which he underwent loop recorder placement. He does follow [facility] cardiology. His device has been interrogated and has not noted any significant arrhythmias except for a 10- second run of SVT, no A. fib. He does drink 1-2 beers daily. In ED patient was hypoxic requiring 3 L of O2 to maintain adequate saturation. Hemodynamics were otherwise stable. Lab work notable for elevated proBNP 1132, troponin WNL, K4.7, BUN 23, creatinine 0.88. Chest x-ray revealed pulmonary vascular congestion, low lung volumes with likely left basilar atelectasis. In ED he received 40 mg IV Lasix. Admission Exam Per Admitting Provider General: Obese, no acute distress Eyes: PERRL, conjunctivae normal, not pale, anicteric sclerae, EOM intact bilaterally ENMT: External ear and nose normal, oropharynx normal Neck: Normal visual inspection, no tracheal deviation, no swelling noted Respiratory: Normal respiratory effort, no respiratory distress, reduced breath sounds lung bases Cardiovascular: Pulse is RRR S1 S2, + pedal edema Gastrointestinal (Abdomen): Abdomen is mildly distended, soft, subcutaneous edema over lower half of abdominal wall, non-tender to palpation, no guarding, no palpable hepatosplenomegaly, normal bowel sounds Musculoskeletal: No cyanosis or clubbing,++Bilateral leg edema Skin: Bilateral stasis dermatitis changes Neurologic: Alert and oriented x 3, No focal weakness, sensation grossly intact Psychiatric: Euthymic affect, no depressed affect Principal Diagnosis ACUTE CHF WITH DIASTOLIC DYSFUNCTION TYPE 2 DIABETES OBESITY HYPOVENTILATION SYNDROME Discharge Exam General- No acute distress, obese Head- atraumatic Eyes- PERRL, EOMI, ENT- oropharynx clear Neck- supple, no JVD Lungs- diminished lung sound Heart- regular rhythm; no murmur Abdomen- normal bowel sounds, soft, nontender Extremities- no calf tenderness Neuro- alert, oriented x 3; PERRL, EOMI; no facial palsy; no dysarthria Skin- warm & dry Discharge Data Allergies Allergy/AdvReac Type Severity Reaction Status Date / Time No Known Allergies Allergy Verified 04/15/20 15:14 Consultations 04/15/20 15:09 ED Decision to Admit Stat 04/15/20 16:03 Consult Cardiology Routine 04/15/20 17:06 Consult Case Management - Discharge Planning Routine 04/16/20 02:49 Consult Mail Distribution Clerk Routine 04/16/20 06:23 Consult Case Management - Discharge Planning Routine 04/18/20 11:19 Consult Case Management - Discharge Planning Routine Ordered Studies 04/16/20 04:02 CT head/brain wo con Urgent XR chest 1V portable CLINICAL HISTORY: Chest pain. COMPARISON STUDY: September 10, 2018. FINDINGS: A gas-filled structure within left upper quadrant is noted. Lung volumes are diminished. There is elevation of left hemidiaphragm with suspected left basilar atelectasis. Pulmonary vasculature is prominent. Enlargement of the cardiac silhouette is noted. This is accentuated on this hypoventilatory study. IMPRESSION: 1. Low lung volumes with suspected left basilar atelectasis. 2. Elevation of the left hemidiaphragm with prominent gas-filled structure within left upper quadrant which reflects the stomach or less likely colon. 3. Apparent pulmonary vascular congestion which could be technical. ACT 112: Negative or not required by law. Electronically signed by: Alejo Lord M.D. 04/15/2020 2:54 PM Dictated: 04/15/20 1451 Transcribed: 04/15/20 1451 XR chest 1V portable CLINICAL HISTORY: Respiratory failure. COMPARISON STUDY: Chest radiograph 04/15/2020. FINDINGS: The tip of the endotracheal tube is 3.5 cm above the minal. Tip of nasogastric tube is below the lower aspect of this image but at least within the body of the stomach. Lung volumes are diminished. This is unchanged. Left basilar opacity is noted. Also mild right basilar opacity. There is pulmonary vascular congestion. There is no pneumothorax. Enlargement of the cardiac silhouette is unchanged. IMPRESSION: 1. Tip of endotracheal tube 3.5 cm above the minal. 2. Low lung volumes with bibasilar opacities that favor atelectasis although consolidation could appear similar. 3. Pulmonary vascular congestion. ACT 112: Negative or not required by law. Electronically signed by: Alejo Lord M.D. 04/16/2020 7:39 AM Dictated: 04/16/20737 Transcribed: 04/16/20737 CT OF THE HEAD WITHOUT CONTRAST CLINICAL HISTORY: Altered mental status. COMPARISON STUDY: Head CT September 10, 2018. MRI of the brain August 22, 2018. CT DOSE: 1074.96 mGy.cm TECHNIQUE: Helical axial images of the head were obtained without IV contrast. Automated exposure control was utilized for the study. A dose lowering technique was utilized adhering to the principles of ALARA. FINDINGS: Exam is mildly compromised by motion artifact. No acute intracranial hemorrhage, midline shift or mass effect is present. The ventricular system is unremarkable. The basilar cisterns are patent. No extra-axial collections are present. There are no findings to suggest acute dural sinus thrombosis or acute territorial infarct. White matter hypodensities are unchanged. No significant calvarial abnormalities are present. Visualized portions of the sinuses and mastoid air cells are clear. Endotracheal and nasogastric tubes are incidentally noted. IMPRESSION: Exam mildly compromised by motion artifact. No acute intracranial findings. ACT 112: Negative or not required by law. Electronically signed by: Aljeo Lord M.D. 04/16/2020 7:16 AM Dictated: 04/16/2014 Transcribed: 04/16/20713 XR chest 1V portable CLINICAL HISTORY: follow up diuresis COMPARISON STUDY: Chest radiograph April 16, 2020. FINDINGS: The endotracheal tube is 2.4 cm above the minal. Tip of nasogastric tube is below the lower aspect of this image but at least within the body of the stomach. Lung volumes are diminished. This is unchanged. Elevation of the left hemidiaphragm with left basilar opacity persists. Right basilar opacity persists. There is pulmonary vascular congestion which is similar to prior exam. IMPRESSION: 1. Tip of endotracheal tube 3.4 cm above the minal. 2. No change in appearance of the chest. Low lung volumes with bibasilar opacities and a small left pleural effusion. 3. Pulmonary vascular congestion. Cardiomegaly. ACT 112: Negative or not required by law. Electronically signed by: Alejo Lord M.D. 04/17/2020 7:55 AM Dictated: 04/17/20 0753 Transcribed: 04/17/20 0753 Hospital Course (1) Acute on chronic respiratory failure with hypoxia and hypercapnia: Fue to combination of decompensated diastolic CHF /vol overload /CO2 retention due to inderlying LUIS E /obesity hypoventilation syndrome ABG on admission with pH 7.26 and Pco2 95 Was intubated on mechanical ventilation after failed Bipap Extubated on 04/17 and has been doing ok pulmonology on board Recommended to continue Bipap at night and prn 2 step exercise done and pt required oxygen at night Continue with O2 supplementation to keep oxygen saturation around 88 to 92% Scripts given to case investigator for the Bipap and oxygen supplement Follow up with pulmonology as outpatient (2) Acute CHF: Acute decompensation of diastolic CHF Diureisis well with IV lasix ECHO showed LV wall motion is normal. Severe concentric LVH. EF 55-60% Cardiology on board Case discussed with cardiology recommended to transition to Butamide 1 mg daily on discharge Continue Carvedilol Follow up with cardiology inn the [facility] in order to continue diuresis and manage his volume status. (3) DM type 2 (diabetes mellitus, type 2): Last A1c 8.7 on 04/02/2020 On lantus and insulin sliding scale Pharmacy on board for glycemic management Continue monitor BS (4) CVA (cerebral vascular accident): History of Left medulla CVA, Wallenberg syndrome in 08/2018 Continue aspirin and plavix Stable (5) Alcohol abuse: History of daily alcohol use No s/s of alcohol withdrawal Counseling on smoking cessation (6) DVT prophylaxis: SQ Heparin code status : full code DISPOSITION: Discharge home today Follow up with cardiology Total Time Total Time Spent Total Time Spent (In Minutes): 40 minutes Total Time Includes: Examination of the Patient, Discharge Planning, Medication Reconciliation, Communication With Other Providers and Other Discharge Plan Discharge Items Patient Disposition: Home - Self-Care Reason For Visit: ACUTE CHF Discharge Diagnosis: ACUTE CHF WITH DIASTOLIC DYSFUNCTION TYPE 2 DIABETES OBESITY HYPOVENTILATION SYNDROME Activity: Resume your previous activity Non-emergency contact: Primary Care Provider and Legal Services Manager Call non-emergency contact if: you have any medication questions Follow-up/Referrals: London Starkey MD [Physician] - (follow up with lung specialist in 2-3 weeks ) Ignacia Mccarthy DO [Primary Care Provider] - Teagan Diaz PA-C [Physician Optical Store Manager] - 04/27/20 2:00 pm (Congestive Heart Failure Program Appointment Information Early follow up is essential to managing your heart failure. An appointment has been scheduled for you with the [facility] within 7 days of discharge. Anticipate this visit to be 30-60 minutes long. Please expect a social welfare clerk phone call from one of our nurses approximately 48 hours from discharge. They will also be placing an order for lab work to be completed 1-2 days prior to your heart failure follow up appointment. Please be sure to have this done so we can go over the results when you come in. Office Location The cardiology office building is located in front of the hospital at [address] [facility] [place]. Bring the following with you to your follow-up doctor appointments: Please bring your daily weight log any discharge paperwork all of your medication bottles with you to this visit. ) Diet: Carb Consistent or DM2 and Heart Healthy Addtl Attending Provider Instructions: Follow up with your primary care provider Dr. Mccarthy on 04/26 @ 11:20 AM Follow up with cardiology Teagan SCHUMACHER on 04/27 @ 2 PM Follow up with pulmonology (Please call to schedule for the appointment ) Continue to wear Bipap at night and when napping or as needed with shortness of breath Continue oxygen supplement 24 hrs Check BMP in 1 week to monitor your electrolytes and kidney function Continue monitor your blood sugar Follow up a health diabetes diet and limited concentrated sweet intake Call your Primary Care doctor if any of the following symptoms or problems start or get worse: * Shortness of breath or difficulty breathing * Wake up at night short of breath * Chest pain * Cough * Swelling of your hands, feet, or legs * More fatigued or tired with your normal activity * Palpitations - sudden fast heart beats WEIGHT * Weigh yourself every morning after using the bathroom. * Use the same scale. * Wear the same amount of clothing. * Write your weight down on a chart. * Call your Primary Care doctor if you gain more than 2-3 pounds in 1-2 days. MEDICATIONS * Use this discharge instruction sheet for medication instructions. * Take your medications at the time your doctor ordered. * Do not skip a dose of your medicines. * If you miss a dose of medicine, take it as soon as possible, but DO NOT DOUBLE A DOSE. * Read your medicine information when you get home. * Know all of the side effects of your medicine. If in doubt, ask your pharmacist * Call your Primary Care doctor's office if you have any side effects. * Be sure all of your doctors know what medicine and herbs you take (including cold, flu, and herbal medicine). Take the following with you to your follow-up doctor appointments: * Weight Chart * Medication List * List of questions Do not drink excessive alcohol, beer or wine. Pending Studies at Discharge: No Stand-Alone Forms: [facility] [email or web address], Smoking Cessation Medications and DC Order Prescriptions: New bumetanide 1 mg tablet 1 mg PO DAILY Qty: 30 RF: 0 guaifenesin 200 mg tablet 200 mg PO TID PRN (Reason: congestion/cough) Qty: 20 RF: 0 lactulose 20 gram/30 mL solution 20 gm PO BID Qty: 3000 RF: 0 Continued Lantus Solostar U-100 Insulin 100 unit/mL (3 mL) Insulin Pen 60 unit SUBCUT BID RF: 0 metformin 1,000 mg Tablet 1,000 mg PO BIDM RF: 0 insulin aspart U-100 [Novolog Flexpen U-100 Insulin] 100 unit/mL insulin pen See Rx Instructions .ROUTE .COMPLEX RF: 0 atorvastatin [Lipitor] 80 mg Tablet 80 mg PO HS RF: 0 carvedilol 12.5 mg Tablet 12.5 mg PO BID RF: 0 clopidogrel [Plavix] 75 mg Tablet 75 mg PO QAM RF: 0 Jardiance 25 mg Tablet 25 mg PO QAM RF: 0 potassium chloride 10 mEq capsule, extended release 10 meq PO QAM RF: 0 insulin aspart U-100 100 unit/mL (3 mL) insulin pen See Rx Instructions .ROUTE .COMPLEX RF: 0 lisinopril 20 mg tablet 20 mg PO QAM RF: 0 allopurinol 300 mg tablet 300 mg PO QAM RF: 0 Discontinued furosemide 40 mg tablet 40 mg PO QAM RF: 0 Discharge Orders: Discharge Order (Routine); Ordered 04/20/20 Ordered By: Rica Reaves/Other Patient Handouts: Tips for Using Less Salt, Low-Salt Choices, Healthy Meals for Diabetes, Diabetes: The Benefits of Exercise, Diabetes: Living Your Life, Diet Low Salt Dc, Managing Diabetes: The A1C Test, Metabolic Syndrome Lowering Your Blood Pressure Admission Data Admit Date/Time: 04/15/20 15:26 Attending Provider: Rica Luo Admit Provider: Sandra Alvarez I. Primary Care Provider: Ignacia Mccarthy Other Providers: Sandra Alvarez I. ; Pop Oviedo ; London Starkey Other Interventions: Discharge Summary Assessment (RN) Last Done: 04/20/20 17:29 DC Date/Time DO NOT enter until pt leaves facility: 04/20/20 18:51
== END 2020-04-20 18:51 | disposition home or self-care (01) | DRG 189 ==
LOC: ED 13:48 → 2S 15:26 → SUATTDRO 15:26 → 2S 16:13 → 1E 04-16 02:45 → 2W 04-17 11:51

== ENCOUNTER 2024-11-03 10:29 | Inpatient (IN) ==
--- NOTE | 2024-11-03 11:26 | Emergency Department Note ---
ED Visit Note Patient was seen and evaluated by Dr. Schwartz. I was present for left finger wound repair. Unfortunately, wound is actively bleeding I do believe patient would benefit from repair at this time despite the wound being nearly 24 hours in age. Risks and benefits of performing primary wound closure versus no repair were discussed with the patient who verbalizes understanding. Patient in agreement to proceed with repair here. Verbal consent was obtained prior to performing the procedure. 3 cc of 1% lidocaine without epi was used to perform a digital block of the left 5th digit. Laceration measures 2 cm in. The wound was cleansed and prepped in the typical sterile fashion utilizing normal saline and Betadine. The wound was sterilely draped. Once proper anesthetization was established, the wound was further examined and demonstrated deep wound on the dorsal aspect of the did. The wound was copiously irrigated with normal saline and Betadine. The wound was closed using 4 simple, 5-0 nylon sutures with the wound edges being well approximated. Patient tolerated the procedure well. No complications were met. Wound was cleansed and dressed with Adaptic dressing. I did order an x-ray as well as tetanus vaccine status. I reviewed the imaging. No definitive fracture or radiopaque foreign body. Patient does have decreased ability to extend at the left fifth digit but notes this is chronic and not new, has been present for at least a year. No new function issues. Patient does present with other medical issues and will be admitted to the hospital. I discussed my recommendation of initiating antibiotics with the hospitalist service noting the laceration and age of the wound/mechanism. Please refer to further documentation regarding his stay. I recommend suture removal in 12-14 days. .
--- NOTE | 2024-11-03 11:44 | Emergency Department Note ---
History of Present Illness General Chief complaint: Flu Like Symptoms Stated complaint: COUGH, WEEZING, HEADACHE, CONGESTION Time Seen by Provider: 11/03/24 10:39 History of Present Illness Provider complaint: Cough Onset (ago): week(s) 1 Maximum Pain Intensity: 4 54-year-old male presents emergency department for cough. Patient reports he has been coughing for the last week. He reports productive cough. Reports no chest pain or difficulty breathing. Patient reports he has a history of recurrent pneumonia and thinks he has pneumonia again. Patient also makes mention that he was skinning a deer yesterday and he cut his left pinky finger which is bleeding after he hit it against a wall earlier today. Home Medications Medication Instructions Recorded Confirmed Type insulin aspart U-100 100 unit/mL See Rx Instructions .Route .COMPLEX 08/14/21 11/03/24 History (3 mL) subcutaneous pen insulin glargine 100 unit/mL (3 40 unit subcut BID 08/14/21 11/03/24 History mL) subcutaneous pen (Lantus Solostar U-100 Insulin) atorvastatin 80 mg tablet (Lipitor) 80 mg PO HS #90 tabs 03/01/22 11/03/24 Rx lactulose 20 gram/30 mL oral 20 g (30 mL) PO BID PRN 03/01/22 11/03/24 Rx solution constipation #3,000 mL lisinopril 20 mg tablet 20 mg PO QAM #90 tabs 03/01/22 11/03/24 Rx metformin 1,000 mg tablet 1,000 mg PO BIDM #180 tabs 03/01/22 11/03/24 Rx potassium chloride 10 mEq 10 meq PO QAM #90 caps 03/01/22 11/03/24 Rx capsule,extended release bumetanide 2 mg tablet 2 mg PO BID #180 tabs 08/28/23 11/03/24 Rx allopurinol 100 mg tablet 100 mg PO UD 11/03/24 11/03/24 History allopurinol 300 mg tablet 300 mg PO UD 11/03/24 11/03/24 History carvedilol 25 mg tablet 0 mg PO BID 11/03/24 11/03/24 History clopidogrel 75 mg tablet (Plavix) 0 mg PO QAM 11/03/24 11/03/24 History dapagliflozin propanediol 5 mg 5 mg PO QAM 11/03/24 11/03/24 History tablet (Farxiga) dulaglutide 4.5 mg/0.5 mL 4.5 mg subcut WK 11/03/24 11/03/24 History subcutaneous pen injector (Trulicity) gabapentin 100 mg capsule 100 mg PO TID PRN Pain 11/03/24 11/03/24 History Allergies Allergy/AdvReac Type Severity Reaction Status Date / Time No Known Allergies Allergy Verified 11/03/24 15:36 Past Med/Surg History Problem List (Updated 11/03/24 @ 17:29 by Leonard Schwartz MD) Parainfluenza virus bronchitis (Acute) Hypoxia (Acute) Parainfluenzal pneumonia Acute respiratory failure with hypoxia Cough Encounter for loop recorder at end of battery life Dyslipidemia LVH (left ventricular hypertrophy) Status post placement of implantable loop recorder Hypersomnia Diastolic CHF Pulmonary hypertension Morbid obesity Chronic respiratory failure with hypoxia and hypercapnia Acute diastolic (congestive) heart failure Obesity hypoventilation syndrome Acute on chronic respiratory failure with hypoxia and hypercapnia Hypoxia (Acute) Alcohol abuse Atelectasis of left lung Hypomagnesemia (Acute) Acute hyperglycemia (Acute) Syncope Hypertension (Chronic) DM type 2 (diabetes mellitus, type 2) (Chronic) CVA (cerebral vascular accident) (Chronic) Symptomatic bradycardia (Acute) Medication side effect (Acute) Dysphagia (Chronic) Vertebral artery stenosis (Chronic) Gout (Chronic) Medical History (Updated 11/03/24 @ 17:29 by Leonard Schwartz MD) HTN (hypertension) Surgical History History of total left knee replacement History of lung surgery History of carpal tunnel surgery Family History Sister Stroke Mother Myocardial infarction, Onset Age: 70 Diabetes Father Myocardial infarction Diabetes Social History Smoking Status: Never smoker Second Hand Exposure: No; Do You Dip or Chew Tobacco: No (former userm quit about 04/2018); Hx Alcohol Use: Yes Alcohol type: beer Hx Substance Use: No Preferred Language: [place] Citizen Communication Ability: Effective Visual Impairment: Limited Spring Fitter Required: No Beliefs That Will Affect Care: None marital status: Current Living Situation: Spouse Feels Safe at Home: Yes Assistive Devices: Glasses Physical Exam Vital Signs Vital Signs - 24 hr 11/03/24 10:33 11/03/24 11:59 11/03/24 12:12 Temperature 36.5 C Temperature Source Temporal Artery Scan Pulse Rate 95 H 95 H 93 H Pulse Rate from SpO2 Sensor 100 H Pulse Rhythm Regular Respiratory Rate 22 20 15 Blood Pressure 175/105 H Blood Pressure Mean 128 Blood Pressure Position Sitting Pulse Oximetry 93 86 L 95 Oxygen Delivery Method Room Air Room Air Oxygen Flow Rate 2 Sepsis Recent Fever Within 48 Hours No Sepsis New/Unexplained Change in Mental Status No Sepsis Action Taken by Nursing No Action Required 11/03/24 12:17 11/03/24 12:54 11/03/24 13:09 Temperature Temperature Source Pulse Rate 88 Pulse Rate from SpO2 Sensor 88 75 Pulse Rhythm Respiratory Rate Blood Pressure Blood Pressure Mean Blood Pressure Position Pulse Oximetry 97 90 Oxygen Delivery Method Oxygen Flow Rate Sepsis Recent Fever Within 48 Hours Sepsis New/Unexplained Change in Mental Status Sepsis Action Taken by Nursing 11/03/24 13:30 11/03/24 13:33 11/03/24 14:09 Temperature Temperature Source Pulse Rate Pulse Rate from SpO2 Sensor 97 H 90 Pulse Rhythm Respiratory Rate Blood Pressure 139/69 Blood Pressure Mean 101 Blood Pressure Position Pulse Oximetry 83 L 87 L Oxygen Delivery Method Oxygen Flow Rate Sepsis Recent Fever Within 48 Hours Sepsis New/Unexplained Change in Mental Status Sepsis Action Taken by Nursing Physical Exam HENT: Exam performed. - Head: Normocephalic and atraumatic. EYES: Conjunctivae and EOM are normal. Pupils are equal, round, and reactive to light. Right eye exhibits no discharge. Left eye exhibits no discharge. No scleral icterus. NECK: Normal range of motion. Neck supple. No JVD present. CV: Normal rate, regular rhythm, normal heart sounds and intact distal pulses. Palpable radial pulses bue. PULM/CHEST: Rhonchi bilaterally. - Chest Wall: He exhibits no tenderness. NEURO: He is alert and oriented to person, place, and time. He has normal strength. No cranial nerve deficit or sensory deficit. Coordination and gait normal. GCS eye subscore is 4. GCS verbal subscore is 5. GCS motor subscore is 6. Cerebellar tests wnl. Course Course 1039: The patient was evaluated in room B10. A complete history and physical exam was performed Cardiac monitoring: An order was placed for continuous cardiac monitoring. The monitor shows a rate of 90 with sinus rhythm interpreted by wa 1144: Patient was having his finger sutured by ENDY Read and the patient became acutely hypoxic into the 80s. Supplemental oxygen was applied via nasal cannula which improved the patient's oxygen saturation. Labs EKG ordered for the patient. 1325: Vital signs stable supplemental oxygen. Patient's D-dimer is elevated. Will order CTA of the chest. 1515: Vital signs stable on supplemental oxygen via nasal cannula. Patient's laceration was repaired by HEAVENLY Jaquez. Patient is positive for parainfluenza virus. Patient was given steroids and breathing treatments in the emergency department. Patient's BNP is mildly elevated 323. CTA of the chest shows no pulmonary embolus tree-in-bud nodularity compatible with infectious/inflammatory process. [facility]. Administered Medications Discontinued Medications Albuterol (Albut/Ipratrop 3mg/0.5mg Neb 3 Ml Vial) 3 ml NEB NOW STA; Protocol Stop: 11/03/24 12:36 Last Admin: 11/03/24 12:39 Dose: 3 ml Documented By: HELEN Diphtheria/Pertussis/Tetanus Vacc (Diphther/Tetan/Pertus Vaccine (Tdap, Adol/Adult) 0.5ml) 0.5 ml IM .ONCE ONE Stop: 11/03/24 11:26 Last Admin: 11/03/24 11:56 Dose: 0.5 ml Documented By: TOYIN Ioversol (Optiray 320 125ml) 117 ml IV ONCE ONE Stop: 11/03/24 14:03 Last Admin: 11/03/24 14:03 Dose: 117 ml Documented By: JULIO Lidocaine HCl (Lidocaine 1% Local 20 Ml Vial) 4 ml INFIL NOW ONE Stop: 11/03/24 11:26 Last Admin: 11/03/24 11:56 Dose: 4 ml Documented By: TOYIN Methylprednisolone (Methylprednisolone 125 Mg/2 Ml Vial) 125 mg IV NOW STA Stop: 11/03/24 14:52 Last Admin: 11/03/24 14:56 Dose: 125 mg Documented By: TOYIN Critical Care Time Critical Care Time: Yes Total Critical Care Time: 38 I have personally spent greater than 38 minutes of critical care time in the direct management of this patient. This includes bedside care, interpretation of diagnostic studies, and testing, discussion with consultants, patient, and family members, and other required patient management activities. This 38 minutes is in excess of all separately billable procedures. Medical Decision Making Laboratory Data Attestation: I reviewed the patient's lab results. 11/03/24 11:00 11/03/24 11:00 Lab Results 11/03/24 11/03/24 11/03/24 Range/Units 11:00 11:50 12:52 WBC 9.77 (4.8-10.8) K/ul RBC 5.01 (4.70-6.10) M/uL Hgb 16.3 (14.0-18.0) g/dl Hct 48.9 (42.0-52.0) % MCV 97.6 (80.0-100.0) fL MCH 32.5 (25.0-34.0) pg MCHC 33.3 (32.0-36.0) g/dL RDW Std Deviation 45.5 (36.4-46.3) fL RDW Coeff of Antoni 12.7 (11.5-14.5) % Plt Count 246 (130-400) K/uL MPV 9.8 (9.4-12.4) fL Immature Gran % (Auto) 2.0 % Neut % (Auto) 68.6 % Lymph % (Auto) 18.5 % Kemper % (Auto) 8.4 % Eos % (Auto) 1.8 % Baso % (Auto) 0.7 % Neut # (Auto) 6.69 H (1.40-6.50) K/uL Lymph # (Auto) 1.81 (1.20-3.40) K/uL Kemper # (Auto) 0.82 H (0.11-0.59) K/uL Eos # (Auto) 0.18 (0.00-0.50) K/uL Baso # (Auto) 0.07 (0.00-0.20) K/uL Immature Gran # (Auto) 0.20 (0.01-0.20) K/uL PT 11.3 (9.0-12.0) Seconds INR 1.0 (0.9-1.1) APTT 26 (21-31) Seconds PTT Ratio 1.0 D-Dimer 550 H* (0-500) ug/L FEU VBG pH 7.40 (7.36-7.41) VBG pCO2 54 H (38-50) mmHg VBG pO2 65 mmHg VBG HCO3 33 mmol/L VBG O2 Saturation 92.4 % VBG Base Excess 6.7 mEq/L Sodium 136 (136-145) mmol/L Potassium 4.2 (3.5-5.1) mmol/L Chloride 98 (98-107) mmol/L Carbon Dioxide 30 (21-32) mmol/L Anion Gap 8 (3-11) BUN 6 (6-23) mg/dl Creatinine 0.42 L (0.6-1.4) mg/dl Est Cr Clr Drug Dosing 252.2 ml/min eGFR 128.56 BUN/Creatinine Ratio 14.3 (10-20) Glucose 246 H (70-99(Fasting)) mg/dl Calcium 9.3 (8.6-10.3) mg/dl Troponin I High Sens 20.7 H (0-20) pg/ml B-Natriuretic Peptide 323 H (0-100) pg/ml Lipase 18 (11-82) U/L Adenovirus (PCR) Not Detected (NotDetected) B. pertussis DNA (PCR) Not Detected (NotDetected) B.parapertussis DNA PCR Not Detected (NotDetected) C. pneumoniae DNA (PCR) Not Detected (NotDetected) Coronavirus OC43 (PCR) Not Detected (NotDetected) Coronavirus HKU1 (PCR) Not Detected (NotDetected) Coronavirus 229E (PCR) Not Detected (NotDetected) SARS-CoV-2 (PCR) Not Detected (NotDetected) Coronavirus NL63 (PCR) Not Detected (NotDetected) Human Metapneumovir PCR Not Detected (NotDetected) Influenza Type A (PCR) Not Detected (NotDetected) Influenza Type B (PCR) Not Detected (NotDetected) M. pneumoniae (PCR) Not Detected (NotDetected) Parainfluenza 1 (PCR) Not Detected (NotDetected) Parainfluenza 2 (PCR) Not Detected (NotDetected) Parainfluenza 3 (PCR) Not Detected (NotDetected) Parainfluenza 4 (PCR) DETECTED A (NotDetected) RSV (PCR) Not Detected (NotDetected) Entero/Rhino (PCR) Not Detected (NotDetected) 11/03/24 Range/Units 14:07 WBC (4.8-10.8) K/ul RBC (4.70-6.10) M/uL Hgb (14.0-18.0) g/dl Hct (42.0-52.0) % MCV (80.0-100.0) fL MCH (25.0-34.0) pg MCHC (32.0-36.0) g/dL RDW Std Deviation (36.4-46.3) fL RDW Coeff of Antoni (11.5-14.5) % Plt Count (130-400) K/uL MPV (9.4-12.4) fL Immature Gran % (Auto) % Neut % (Auto) % Lymph % (Auto) % Kemper % (Auto) % Eos % (Auto) % Baso % (Auto) % Neut # (Auto) (1.40-6.50) K/uL Lymph # (Auto) (1.20-3.40) K/uL Kemper # (Auto) (0.11-0.59) K/uL Eos # (Auto) (0.00-0.50) K/uL Baso # (Auto) (0.00-0.20) K/uL Immature Gran # (Auto) (0.01-0.20) K/uL PT (9.0-12.0) Seconds INR (0.9-1.1) APTT (21-31) Seconds PTT Ratio D-Dimer (0-500) ug/L FEU VBG pH (7.36-7.41) VBG pCO2 (38-50) mmHg VBG pO2 mmHg VBG HCO3 mmol/L VBG O2 Saturation % VBG Base Excess mEq/L Sodium (136-145) mmol/L Potassium (3.5-5.1) mmol/L Chloride (98-107) mmol/L Carbon Dioxide (21-32) mmol/L Anion Gap (3-11) BUN (6-23) mg/dl Creatinine (0.6-1.4) mg/dl Est Cr Clr Drug Dosing ml/min eGFR BUN/Creatinine Ratio (10-20) Glucose (70-99(Fasting)) mg/dl Calcium (8.6-10.3) mg/dl Troponin I High Sens 8.8 D (0-20) pg/ml B-Natriuretic Peptide (0-100) pg/ml Lipase (11-82) U/L Adenovirus (PCR) (NotDetected) B. pertussis DNA (PCR) (NotDetected) B.parapertussis DNA PCR (NotDetected) C. pneumoniae DNA (PCR) (NotDetected) Coronavirus OC43 (PCR) (NotDetected) Coronavirus HKU1 (PCR) (NotDetected) Coronavirus 229E (PCR) (NotDetected) SARS-CoV-2 (PCR) (NotDetected) Coronavirus NL63 (PCR) (NotDetected) Human Metapneumovir PCR (NotDetected) Influenza Type A (PCR) (NotDetected) Influenza Type B (PCR) (NotDetected) M. pneumoniae (PCR) (NotDetected) Parainfluenza 1 (PCR) (NotDetected) Parainfluenza 2 (PCR) (NotDetected) Parainfluenza 3 (PCR) (NotDetected) Parainfluenza 4 (PCR) (NotDetected) RSV (PCR) (NotDetected) Entero/Rhino (PCR) (NotDetected) Imaging Data Radiologist's Impression: Chest X-Ray 11/03/24 11:19 XR chest 2V PA/lateral CLINICAL HISTORY: cough TECHNIQUE: 2 views of the chest were obtained. Comparison: Comparison is made to chest radiograph 04/17/2020 FINDINGS: No lines and tubes are seen. Cardiomegaly is noted. Peribronchial thickening is seen. Airspace opacities are seen in the left lower lung. No evidence of pleural effusion or pneumothorax. IMPRESSION: Peribronchial thickening is seen compatible with infectious/inflammatory airways disease or viral pneumonia. Left lower lung airspace opacities likely represent atelectasis although superimposed aspiration/pneumonia cannot be excluded. ACT 112: Negative or not required by law. Electronically signed by: Garrett Hensley M.D. 11/03/2024 12:39 PM Finger X-Ray 11/03/24 12:03 XR finger(s) LT min 2V CLINICAL HISTORY: Left dorsal 5th finger laceration COMPARISON: Left hand radiographs July 13, 2014. FINDINGS: Evaluation of the left fifth finger is mildly compromised given difficulty positioning. There is a bandage on the fifth finger. No fracture or radiopaque foreign bodies are identified. There is mild osteoarthritis within the left fifth finger articulations. IMPRESSION: No fracture or radiopaque foreign body within the left fifth finger. ACT 112: Negative or not required by law. Electronically signed by: Alejo Lord M.D. 11/03/2024 12:26 PM Chest CTA 11/03/24 13:22 CT angio chest PE protocol CLINICAL HISTORY: ro PE TECHNIQUE: Multidetector row helical CT of the chest was performed with angiographic protocol. Coronal and sagittal reformations were obtained. Coronal and sagittal MIPS were obtained from the axial data set and were submitted for review. Automated dose lowering techniques and/or adjustment according to patient size were utilized for this exam. CT DOSE: 937.44 mGy.cm Comparison: Comparison is made to chest radiograph 06/03/2024 FINDINGS: Lungs and pleura: Tree-in-bud nodularity is seen favoring the upper lobes. There is a 6 mm nodule in the right middle lobe (series 4 image 106). Heart and pericardium: Cardiomegaly is seen with biatrial enlargement. Aortic valvular calcification is seen. Vessels: No evidence of pulmonary embolism. Mediastinum and rosa: Subcentimeter lymph nodes are seen. Chest wall and lower neck: Small thyroid nodules are noted which do not require follow-up by ACR criteria. Abdomen: Hepatic steatosis is noted. Bones: Degenerative changes in the thoracic spine. IMPRESSION: 1. No pulmonary embolus. 2. Tree in bud nodularity compatible with infectious/inflammatory process. ACT 112: Negative or not required by law. Electronically signed by: Garrett Hensley M.D. 11/03/2024 2:53 PM ECG Data Attestation: I personally reviewed and interpreted this ECG as follows: Rate (beats per minute): 90 Rhythm: + normal sinus ECG Intervals/blocks: + First degree AV block, + Normal QRS and + Normal QT-c ECG ST segments: + Normal ST segments ECG Findings: + PVCs MDM Narrative 1039: The patient was evaluated in room B10. A complete history and physical exam was performed Cardiac monitoring: An order was placed for continuous cardiac monitoring. The monitor shows a rate of 90 with sinus rhythm interpreted by wa 1144: Patient was having his finger sutured by ENDY Read and the patient became acutely hypoxic into the 80s. Supplemental oxygen was applied via nasal cannula which improved the patient's oxygen saturation. Labs EKG ordered for the patient. 1325: Vital signs stable supplemental oxygen. Patient's D-dimer is elevated. Will order CTA of the chest. 1515: Vital signs stable on supplemental oxygen via nasal cannula. Patient's laceration was repaired by HEAVENLY Jaquez. Patient is positive for parainfluenza virus. Patient was given steroids and breathing treatments in the emergency department. Patient's BNP is mildly elevated 323. CTA of the chest shows no pulmonary embolus tree-in-bud nodularity compatible with infectious/inflammatory process. [facility] Impression & Plan Hypoxia, Parainfluenza virus bronchitis Discharge Plan Visit Data Chief Complaint: Flu Like Symptoms Stated Complaint: COUGH, WEEZING, HEADACHE, CONGESTION ED Provider: Leonard Schwartz Discharge Problem: Hypoxia, Parainfluenza virus bronchitis Patient Disposition: Admitted As Inpatient
[2024-11-03] MEDS: DIPHTHER/TETAN/PERTUS Vaccine (Tdap, Adol/Adult) 0.5mL IM ONE (11:56)
[2024-11-03] MEDS: LIDOCAINE 1% LOCAL 20 ML VIAL INFIL ONE (11:56)
[2024-11-03 12:05] LABS: Base Excess VBG 6.7 mEq/L; HCO3 VBG 33 mmol/L; Oxygen Saturation VBG 92.4 %; PCO2 VBG 54 mmHg (38-50); PO2 VBG 65 mmHg
--- NOTE | 2024-11-03 12:28 | XRay Report ---
XR finger(s) LT min 2V CLINICAL HISTORY: Left dorsal 5th finger laceration COMPARISON: Left hand radiographs July 13, 2014. FINDINGS: Evaluation of the left fifth finger is mildly compromised given difficulty positioning. Th ere is a bandage on the fifth finger. No fracture or radiopaque foreign bodies are identified. There is mild osteoarthritis within the left fifth finger articulations. IMPRESSION: No fracture or radiopaque foreign body within the left fifth finger. ACT 112: Negative or not required by law. Electronically signed by: Alejo Lord M.D. 11/03/2024 12:26 PM
--- NOTE | 2024-11-03 12:32 | Electrocardiogram Report ---
Test Reason : Blood Pressure : */* mmHG Vent. Rate : 90 BPM Atrial Rate : 90 BPM P-R Int : 292 ms QRS Dur : 122 ms QT Int : 384 ms P-R-T Axes : 44 -55 92 degrees QTcB Int : 469 ms Sinus rhythm with 1st degree A-V block with frequent Premature ventricular complexes Left axis deviation Minimal voltage criteria for LVH, may be normal variant Inferior infarct (cited on or before 11-Sep-2018) Anterolateral infarct (cited on or before 11-Sep-2018) Abnormal ECG When compared with ECG of 17-Apr-2020 06:49, Premature ventricular complexes are now Present Confirmed by Scott Anguiano ([id number]) on 11/03/2024 12:32:27 PM Referred By: Confirmed By: Scott Anguiano
[2024-11-03] MEDS: ALBUT/IPRATROP 3MG/0.5MG NEB 3 ML VIAL NEB STA (12:39)
--- NOTE | 2024-11-03 12:40 | XRay Report ---
XR chest 2V PA/lateral CLINICAL HISTORY: cough TECHNIQUE: 2 views of the chest were obtained. Comparison: Comparison is made to chest radiograph 04/17/2020 FINDINGS: No lines and tubes are seen. Cardiomegaly is noted. Peribronchial thickening is seen. Airspace opacit ies are seen in the left lower lung. No evidence of pleural effusion or pneumothorax. IMPRESSION: Peribronchial thickening is seen compatible with infectious/inflammatory airways disease or viral pne umonia. Left lower lung airspace opacities likely represent atelectasis although superimposed aspirat ion/pneumonia cannot be excluded. ACT 112: Negative or not required by law. Electronically signed by: Garrett Hensley M.D. 11/03/2024 12:39 PM
[2024-11-03 12:55] LABS: Basophils # (auto) 0.07 K/uL (0.00-0.20); Basophils % (auto) 0.7 %; Eosinophils # (auto) 0.18 K/uL (0.00-0.50); Eosinophils % (auto) 1.8 %; Hematocrit (blood only) 48.9 % (42.0-52.0); Hemoglobin 16.3 g/dl (14.0-18.0); Lymphocytes # (auto) 1.81 K/uL (1.20-3.40); Lymphocytes % (auto) 18.5 %; Mean Corpuscular Hemoglobin 32.5 pg (25.0-34.0); Mean Corpuscular Hgb Conc 33.3 g/dL (32.0-36.0); Mean Corpuscular Volume 97.6 fL (80.0-100.0); Mean Platelet Volume 9.8 fL (9.4-12.4); Monocytes # (auto) 0.82 K/uL (0.11-0.59); Monocytes % (auto) 8.4 %; Neutrophils # (auto) 6.69 K/uL (1.40-6.50); Neutrophils % (auto) 68.6 %; Platelet Count 246 K/uL (130-400); RDW Coefficient of Variation 12.7 % (11.5-14.5); RDW Standard Deviation 45.5 fL (36.4-46.3); Red Blood Count 5.01 M/uL (4.70-6.10); White Blood Count 9.77 K/ul (4.8-10.8)
[2024-11-03 13:08] LABS: BUN Creatinine Ratio 14.3 (10-20); Calcium 9.3 mg/dl (8.6-10.3); Creatinine Clr Calc Pharmacy 252.2 ml/min; Potassium 4.2 mmol/L (3.5-5.1)
[2024-11-03 13:11] LABS: Troponin I High Sensitivity 20.7 pg/ml (0-20)
[2024-11-03 13:17] LABS: Partial Thromboplastin Time 26 Seconds (21-31); Prothrombin Time 11.3 Seconds (9.0-12.0)
[2024-11-03 13:19] LABS: Adenovirus PCR Not Detected (NotDetected); Bordetella parapertussis PCR Not Detected (NotDetected); Bordetella pertussis PCR Not Detected (NotDetected); Chlamydia pneumoniae PCR Not Detected (NotDetected); Coronavirus 229E PCR Not Detected (NotDetected); Coronavirus CoV-2 (COVID19)PCR Not Detected (NotDetected); Coronavirus HKU1 PCR Not Detected (NotDetected); Coronavirus NL63 PCR Not Detected (NotDetected); Coronavirus OC43PCR Not Detected (NotDetected); D Dimer 550 ug/L FEU (0-500); Human Metapneumovirus PCR Not Detected (NotDetected); Influenza A PCR Not Detected (NotDetected); Influenza B PCR Not Detected (NotDetected); Mycoplasma pneumoniae PCR Not Detected (NotDetected); Parainfluenza Virus 1 PCR Not Detected (NotDetected); Parainfluenza Virus 2 PCR Not Detected (NotDetected); Parainfluenza Virus 3 PCR Not Detected (NotDetected); Parainfluenza Virus 4 PCR DETECTED (NotDetected); Respiratory Syncytial VirusPCR Not Detected (NotDetected); Rhinovirus/Enterovirus PCR Not Detected (NotDetected)
[2024-11-03] MEDS: OPTIRAY 320 125ml IV ONE (14:03)
--- OUTSIDE RECORDS SUMMARY | 2024-11-03 14:47 | External Medical Summary | Summary of Care ---
Author Name Unknown Organization [facility] Address [address] [place] [address] Phone [phone] Care Team Providers Care Glass Tinter Name Role Phone Aislinn Francois PA-C Primary Care Provider [phone] Reason for Visit * Reason Comments eRx-Medication Refill Encounter Details Date Type Department Care Team (Late st Contact Info) Description 10/17/2024 Refill [facility] [address] [place] [address] Aislinn Francois PA-C [address] [place] [address] Neck pain; Tingling in extremities Allergies No known active allergiesdocumented as of this encounter (statuses as of 10/19/2024) Medications bumetanide (BUMEX) 1 MG Tablet Take 1 Tablet by mouth in the morning. Active Lactulose 10 GM/15ML Oral Solution (Constulose) TAKE 30ML BY MOUTH TWICE A DAY NEEDED FOR CONSTIPATION HOLD IF... (REFER TO PRESCRIPTION NOTES). 021 Active metFORMIN HCl 1000 MG Oral Tablet (Glucophage)Indic ations:Type 2 diabetes mellitus with hemoglobin A1c goal of less than 7.0% (HCC) Take 1 Tablet (1,000 mg) by mouth 2 times a day with morning and evening meals. take 1 tablet by mouth twice a day WITH MORNING AND EVENING MEALS 180 Tablet 3 022 Active Atorvastatin Calcium 80 MG Oral Tablet (Lipitor)Indicati ons:History of CVA (cerebrovascular accident) TAKE ONE TABLET BY MOUTH EVERY MORNING 90 Tablet 023 Active Carvedilol 12.5 MG Oral Tablet (Coreg)Indication s:HTN, goal below 140/90 Take 1 Tablet by mouth in the morning and 1 Tablet before bedtime. with food. 180 Tablet 3 023 Active Potassium Chloride ER 10 MEQ Oral Capsule Extended ReleaseIndication s:Bilateral leg edema TAKE 1 CAPSULE BY MOUTH EVERY MORNING 30 Capsule 4 023 Active Clopidogrel Bisulfate 75 MG Oral Tablet (pLAVix)Indicatio ns:History of CVA (cerebrovascular accident) TAKE 1 TABLET BY MOUTH EVERY MORNING 30 Tablet 024 Active NovoLOG FlexPen 100 UNIT/ML Subcutaneous Solution Pen-injector (insulin aspart)Indication s:Type 2 diabetes mellitus with hemoglobin A1c goal of less than 7.0% (HCC) Inject 16 units under the skin with breakfast, 12 units with lunch, and 14 units with supper 45 mL 3 024 Active Lisinopril 20 MG Oral Tablet (Prinivil)Indicat ions:Type 2 diabetes mellitus with hemoglobin A1c goal of less than 7.0% (HCC),HTN, goal below 140/90 TAKE 1 TABLET BY MOUTH EVERY MORNING 90 Tablet 3 024 Active Insulin Glargine Solostar 100 UNIT/ML Subcutaneous Solution Pen-injector (Lantus SoloStar)Indicati ons:Type 2 diabetes mellitus with hemoglobin A1c goal of less than 7.0% (HCC) INJECT 42 UNITS SUBCUTANEOUSLY TWICE DAILY 75 mL 1 024 Active [employer] In Vitro Strip (Glucose Blood) Use to text blood sugars three times daily DxE11.9 300 Strip 3 024 Active [employer] Delica Lancets 33G Use to text blood sugars three times daily DxE11.9 300 Each 3 Active [employer] / [employer] Reflect w/Device Kit Use as directed. Use to text blood sugars three times daily DxE11.9 1 Kit 024 Active Allopurinol 300 MG Oral Tablet (Zyloprim)Indicat ions:Gouty arthropathy TAKE ONE TABLET BY MOUTH IN THE MORNING 90 Tablet 2 024 Active Allopurinol 100 MG Oral Tablet (Zyloprim)Indicat ions:Gouty arthropathy TAKE 1 TABLET BY MOUTH EVERY MORNING. TAKE ALONG WITH 300 MG TABLET FOR A TOTAL OF 400 MG DAILY 90 Tablet 1 Active Ibuprofen 800 MG Oral Tablet (Motrin)Indicatio ns:Primary osteoarthritis of both knees TAKE 1 TABLET BY MOUTH THREE TIMES DAILY WITH FOOD NEEDED FOR PAIN 90 Tablet 2 Active BD Pen Needle Short U/F 31G X 8 MM (Insulin Pen Needle)Indication s:Type 2 diabetes mellitus with hemoglobin A1c goal of less than 7.0% (HCC) Use to inject insulin up to 5 times daily 500 Each 3 Active Trulicity 4.5 MG/0.5ML Subcutaneous Solution Auto-injector (Dulaglutide) Inject 4.5 mg under the skin once a week. DxE11.9 6 mL 3 Active Dapagliflozin Propanediol 5 MG Oral Tablet (Farxiga) Take 1 Tablet by mouth in the morning. 30 Tablet 11 Active Gabapentin 100 MG Oral Capsule (Neurontin)Indica tions:Neck pain,Tingling in extremities TAKE 1 CAPSULE BY MOUTH THREE TIMES DAILY EVERY MORNING, AT NOON, AND BEFORE BEDTIME 270 Capsule 1 Active Gabapentin 100 MG Oral Capsule (Neurontin)Indica tions:Neck pain,Tingling in extremities TAKE 1 CAPSULE BY MOUTH THREE TIMES DAILY EVERY MORNING, AT NOON, AND BEFORE BEDTIME 90 Capsule 024 2023 Discontinued documented as of this encounter (statuses as of 10/19/2024) Active Problems Problem Noted Date Diagnosed Date Chronic diastolic heart failure 08/17/2022 Body mass index (BMI) of 40.0 to 44.9 in adult 0 03/14/2021 Overview: Per Obesity protocol Stroke, 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 Type 2 diabetes mellitus wit h hemoglobin A1c goal of less than 7.0% 12/17/2017 BMI 35-39 ISOLATED (SEE ACTUAL BMI) 04/17/2010 Overview (04/17/2010): Per Obesity Protocol, #19 Family history of other cardiovascular diseases 06/02/2003 Overview (01/26/2016): mom [facility] late 50's ICD-10 update of inactive term HTN, goal below 140/90 09/30/1998 Gout 09/30/1998 Tobacco use disorder Overview (06/02/2003): chewing tobacco ALCOHOL ABUSE-UNSPEC documented as of this encounter (statuses as of 10/19/2024) Social History Tobacco Use Types Packs/Day Years Used Date Smoking Tobacco: Never Smokeless Tobacco: Former Chew Quit: 11/04/2005 Alcohol Use Standard Drinks/Week Comments Yes 0 (1 standard drink = 0.6 oz pure alcohol) 3-4 beers a day, pt stating none since he was in the hospital stay last week or two PHQ-2 Answer Date Recorded PHQ-2 Score -1 07/24/2020 Hunger Vital Sign Answer Date Recorded Worried About Running Out of Food in the Last Ye ar Never true 08/28/2021 Ran Out of Food in the Last Year Never true 08/28/2021 Sex and Gender Information Value Date Recorded Sex Assigned at Not on file Legal Sex Male 5:57 AM EST Gender Identity Not on file Sexual Orientation Straight 08/28/2021 8: 03 AM EDT Occupation Industry Job Start Date Job End Date construction Not on file Not on file Not on file documented as of this encounter Miscellaneous Notes * Telephone Encounter - Aislinn Francois PA-C - 10/19/2024 11:34 AM ESTSigned Prescriptions: Disp Refills Gabapentin 100 MG Oral Capsule (Neurontin) 270 Ca*1 Sig: TAKE 1 CAPSULE BY MOUTH THREE TIMES DAILY EVERY MORNING, AT NOON, AND BEFORE BEDTIME Authorizing Provider: AISLINN FRANCOIS * Telephone Encounter - Guillermina Milligan [facility] - 10/19/2024 8:09 AM ESTPending Prescriptions: Disp Refills Gabapentin 100 MG Oral Capsule [Pharmacy M*90 Cap*0 Sig: TAKE 1 CAPSULE BY MOUTH THREE TIMES DAILY EVERY MORNING, AT NOON, AND BEFORE BEDTIME * Telephone Encounter - Guillermina Milligan [facility] - 10/19/2024 8:09 AM EST Did you pend patient's preferred pharmacy and medication before forwarding?yes Pharmacy: [id number] Pending Prescriptions: Disp Refills Gabapentin 100 MG Oral Capsule (Neurontin*90 Cap*0 Sig: TAKE 1 CAPSULE BY MOUTH THREE TIMES DAILY EVERY MORNING, AT NOON, AND BEFORE BEDTIME Last Visit: 06/15/2024 (in office), Visit date not found (telemedicine) Next Visit: Visit date not found If no future appointments scheduled, and last appointment is greater than a year ago, please schedule patient for a follow-up appointment Last date the medication was ordered: 09/07/24 Is this request for a controlled substance?No Urine Drug Screen:No results found for this or any previous visit. Patient Phone Numbers Labs: Lab Results Component Value Date/Time CREAT 0.5 (L) 10/14/2024 09:48 AM CREAT 0.7 11/22/2020 10:44 AM POTASSIUM 4.6 10/14/2024 09:48 AM POTASSIUM 4.8 11/22/2020 10:44 AM TSH 3.25 01/13/2001 09:41 PM LDL 141 (H) 02/04/2024 11:00 AM LDL 92 11/22/2020 10:44 AM LDL 54 04/02/2020 10:36 AM ALT 63 (H) 06/10/2024 10:21 AM ALT 93 (H) 04/02/2020 10:36 AM HGBA1C 10.2 (H) 06/10/2024 10:21 AM HGBA1C 8.1 (H) 11/22/2020 10:44 AM * Telephone Encounter - Interface, [facility] In[facility] - 10/19/2024 6:07 AM EST Pending Prescriptions: Disp Refills Gabapentin 100 MG Oral Capsule [Pharmacy M*90 Cap*0 Sig: TAKE 1CAPSULE BY MOUTH THREE TIMES DAILY EVERY MORNING, AT NOON, AND BEFORE BEDTIME documented in this encounter Plan of Treatment Upcoming Encounters Date Type Department Care Team (Late st Contact Info) Description 10/30/2024 10:10 AM EST Office Visit Pharmacy, [address] [place] [id number] [place] [id number] Health Maintenance Due Date Last Done Comments DTap/Tdap Vaccines (6 - Tdap) 1982 05/17/1977, 07/05/1973, 04/04/1972, Additional history exists HIV Screening 1986 Hepatitis C Screening 1989 Hepatitis B Vaccine (1 of 3 - 19+ 3-dose series) 1990 Pneumococcal Vaccine: Pediatrics (0 to 5 Years) and At-Risk Patients (6 to 64 Years) (2 of 2 - PCV) 10/05/1998 10/05/1997 Cologuard 2016 Colonoscopy 2016 Colorectal Cancer Screening 2016 Fecal Occult Blood Test 2016 Sigmoidoscopy 2016 Depression Screening 04/02/2021 04/02/2020 Zoster Vaccines (1 of 2) 2021 Diabetic Foot Exam 08/28/2022 08/28/2021, 0 04/02/2020, 09/23/2018 COVID-19 Vaccine ( season) 2024 Influenza Vaccine (FLU shot) (#1) 2024 HbA1c 12/11/2024 06/10/2024, /0 12/2023, 02/05/2023, Additional history exists B-12 02/03/2025 02/04/2024, 050 12/2021, 11/22/2020, Additional history exists Diabetic Eye Exam 03/20/2025 03/20/2024, , 04/12/2022, Additional history exists Albumin/Creatinine Ratio 06/10/2025 024, 02/04/2024, 02/05/2023, Additional history exists GFR 10/14/2025 10/14/2024, 09/05, 06/10/2024, Additional history exists Lipid Panel 02/03/2029 02/04/2024, 0 02/2023, 11/22/2020, Additional history exists HPV (Gardasil) Vaccine Aged Out No lo nger eligible based on patient's age to complete this topic MENINGOCOCCAL (MENACTRA/MENVEO) Aged Out No longer eligible based on patient's age to complete this topic documented as of this encounter Medical Devices Implanted Type Area Oncology Specialist Device Identifier Shelf Expiration Date Model / Serial / Lot Lens 18.5 Mx60e - [id number] - [id number] Implanted:Qty: 1 on 06/16/2019 by Keith Estes MD at [facility] Left: Eye [employer] 08/03/2021 [id number]-62.5 / [id number] / [id number] Lens 16.5 Mx60e - [id number] - [id number] Implanted:Qty: 1 on 06/23/2019 by Keith Estes MD at [facility] Right: Eye [employer] 02/01/2022 MG19M-82.5 / [id number] / [id number] documented as of this encounter Visit Diagnoses Diagnosis Neck pain Cervicalgia Tingling in extremities Disturbance of skin sensation documented in this encounter Care Teams Glass Tinter Relationship Specialty Start Date End Date Aislinn Francois PA-C [address] [place] [id number] PCP - General Physician Software Programmer 06/06/22 documented as of this encounter
[2024-11-03] MEDS: methylPREDNISolone 125 MG/2 ML VIAL IV STA (14:56)
--- NOTE | 2024-11-03 14:56 | CT Scan Report ---
CT angio chest PE protocol CLINICAL HISTORY: ro PE TECHNIQUE: Multidetector row helical CT of the chest was performed with angiographic protocol. Mckay l and sagittal reformations were obtained. Coronal and sagittal MIPS were obtained from the axial megan a set and were submitted for review. Automated dose lowering techniques and/or adjustment according to patient size were utilized for this exam. CT DOSE: 937.44 mGy.cm Comparison: Comparison is made to chest radiograph 06/03/2024 FINDINGS: Lungs and pleura: Tree-in-bud nodularity is seen favoring the upper lobes. There is a 6 mm nodule in the right middle lobe (series 4 image 106). Heart and pericardium: Cardiomegaly is seen with biatrial enlargement. Aortic valvular calcification is seen. Vessels: No evidence of pulmonary embolism. Mediastinum and rosa: Subcentimeter lymph nodes are seen. Chest wall and lower neck: Small thyroid nodules are noted which do not require follow-up by ACR vicky peter. Abdomen: Hepatic steatosis is noted. Bones: Degenerative changes in the thoracic spine. IMPRESSION: 1. No pulmonary embolus. 2. Tree in bud nodularity compatible with infectious/inflammatory process. ACT 112: Negative or not required by law. Electronically signed by: Garrett Hensley M.D. 11/03/2024 2:53 PM
--- NOTE | 2024-11-03 15:29 | History & Physical Report ---
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 Parainfluenzal Pneumonia Acute Respiratory Failure with Hypoxia: Patient was noted to become hypoxic at 86% SpO2 on RA while undergoing laceration repair in the ED as per below. He was placed on 2L via NC with good rebound of his SpO2 back into the mid 90s. He was noted to have some mild wheezing therefore he was administered 125mg IV Solu-Medrol and an albuterol nebulizer treatment in the ED. Wheezing improved on examination in the ED. Parainfluenza positive on Respiratory BioFire panel. CXR --> Peribronchial thickening is seen compatible with infectious/inflammatory airways disease or viral pneumonia. Left lower lung airspace opacities likely represent atelectasis although superimposed aspiration/pneumonia cannot be excluded. D-Dimer was slightly elevated at 550 therefore chest CTA was completed in the ED. Chest CTA --> No evidence of PE; tree in bud nodularity compatible with infectious/inflammatory process. Tree-in-bud nodularity is seen favoring the upper lobes. There is a 6 mm nodule in the right middle lobe (series 4 image 106). Starting IV cefepime + po azithromycin. Probiotic added on. Hold off on additional steroids for now. Pulmonary toilet with incentive spirometry, flutter valve and PRN Duonebs. Can wean O2 as tolerated. Left 5th Digit Laceration S/P Repair: Patient sustained a laceration to the dorsal aspect of his left fifth digit whilst skinning a deer yesterday. This was repaired with sutures in the ED by Levar Jaquez PA-C. Per discussion with Levar over the phone, the patient's laceration was quite deep - therefore will cover with IV daptomycin for now in addition to the IV cefepime and po azithromycin as per above. XR of this finger was unremarkable. Patient received an updated Tdap booster in the ED. Elevated Troponin: Initial troponin slightly bumped at 20.7, repeat troponin improved to 8.8; EKG without any evidence of acute ST changes. Likely demand ischemia in the setting of acute hypoxia however will proceed with further cardiac workup including resting echocardiogram and trending troponins Q6H given his cardiac history. Daily EKG x 2. EKG with chest pain PRN. Insulin-Requiring DM Type II: Hold home agents, basal/bolus regimen while inpatient. BSG checks ACHS. Most recent Hgb A1c was 10.2% about 4 months ago. Will repeat Hgb A1c in AM. Glycemic pharmacy consulted for further insulin management. Other Chronic Medical Conditions: * HLD - Continue atorvastatin. HTN - Continue carvedilol, lisinopril. H/O CVA - Continue Plavix. Gout - Continue allopurinol. LUIS E - Ordered CPAP HS. * Alcohol Abuse - Patient drinks 3-10 beers/day typically. Unsure of when exactly his last drink was. Will initiate gabapentin taper, PRN po Ativan AWSS protocol. * Chronic Diastolic HF - BNP 323. No acute CHF exacerbation as of now. Closely monitor I&Os, fluid restriction of 2L/daily. Daily weights. Continue home Bumex, Farxiga. DVT Prophylaxis: SQ Lovenox Code Status: FULL CODE PCP: Aislinn Francois PA-C Disposition: Admit to PCU/Telemetry for now, likely downgrade to Med/Telemetry tomorrow. Patient seen in collaboration with Dr. Schuler. Please see addendum. I spent a total of 55 minutes coordinating, documenting, and providing care for this patient excluding time spent in the performance of separately billed services. This included personally reviewing all current laboratories and imaging studies, medical reconciliation, outpatient chart review and discussion with specialists. This chart was completed in part utilizing Speech Voice Recognition Software. Grammatical errors, random word insertions, pronoun errors, and incomplete sentences are an occasional consequence of this system due to software limitations, ambient noise, and hardware issues. Any formal questions or concerns about the content, text, or information contained within the body of this dictation should be directly addressed to the provider for clarification. 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 History obtained from the patient and associated chart review. Patient endorses a cough and sinus congestion for the past 1 week. He reports that the cough was initially quite productive of yellowish/greenish sputum but has been somewhat less productive over the past 2-3 days. No recent fevers/chills or body aches. He has been using some [id number] cold/flu medications at home without significant relief in his sinus congestion. He denies any shortness of breath or trouble breathing. Mentions his appetite has been relatively unchanged and that he has been hydrating well at home. Denies any recent urinary or bowel habit changes. He does endorse some mild fatigue but otherwise has been going about his activities of daily living without much issue. No cigarette smoking history but he does use chewing tobacco on a regular basis; no asthma or COPD history. Of note, patient drinks anywhere from 3-10 beers a night however he has not done so over the past few days due to feeling unwell. He did sustain a laceration to his left pinky finger while skinning a deer yesterday. Allergies Allergy/AdvReac Type Severity Reaction Status Date / Time No Known Allergies Allergy Verified 11/03/24 15:36 Home Medications Medication Instructions Recorded Confirmed Type insulin aspart U-100 100 unit/mL See Rx Instructions .Route .COMPLEX 08/14/21 11/03/24 History (3 mL) subcutaneous pen insulin glargine 100 unit/mL (3 40 unit subcut BID 08/14/21 11/03/24 History mL) subcutaneous pen (Lantus Solostar U-100 Insulin) atorvastatin 80 mg tablet (Lipitor) 80 mg PO HS #90 tabs 03/01/22 11/03/24 Rx lactulose 20 gram/30 mL oral 20 g (30 mL) PO BID PRN 03/01/22 11/03/24 Rx solution constipation #3,000 mL lisinopril 20 mg tablet 20 mg PO QAM #90 tabs 03/01/22 11/03/24 Rx metformin 1,000 mg tablet 1,000 mg PO BIDM #180 tabs 03/01/22 11/03/24 Rx potassium chloride 10 mEq 10 meq PO QAM #90 caps 03/01/22 11/03/24 Rx capsule,extended release bumetanide 2 mg tablet 2 mg PO BID #180 tabs 08/28/23 11/03/24 Rx allopurinol 100 mg tablet 100 mg PO UD 11/03/24 11/03/24 History allopurinol 300 mg tablet 300 mg PO UD 11/03/24 11/03/24 History carvedilol 25 mg tablet 25 mg PO BID 11/03/24 11/03/24 History clopidogrel 75 mg tablet (Plavix) 75 mg PO QAM 11/03/24 11/03/24 History dapagliflozin propanediol 5 mg 5 mg PO QAM 11/03/24 11/03/24 History tablet (Farxiga) dulaglutide 4.5 mg/0.5 mL 4.5 mg subcut WK 11/03/24 11/03/24 History subcutaneous pen injector (Trulicity) gabapentin 100 mg capsule 100 mg PO TID PRN Pain 11/03/24 11/03/24 History Past Med/Surg History Problem List Elevated troponin Laceration of finger of left hand Parainfluenza virus bronchitis (Acute) Hypoxia (Acute) Parainfluenzal pneumonia Acute respiratory failure with hypoxia Cough Encounter for loop recorder at end of battery life Dyslipidemia LVH (left ventricular hypertrophy) Status post placement of implantable loop recorder Hypersomnia Diastolic CHF Pulmonary hypertension Morbid obesity Chronic respiratory failure with hypoxia and hypercapnia Acute diastolic (congestive) heart failure Obesity hypoventilation syndrome Acute on chronic respiratory failure with hypoxia and hypercapnia Hypoxia (Acute) Alcohol abuse Atelectasis of left lung Hypomagnesemia (Acute) Acute hyperglycemia (Acute) Syncope Hypertension (Chronic) DM type 2 (diabetes mellitus, type 2) (Chronic) CVA (cerebral vascular accident) (Chronic) Symptomatic bradycardia (Acute) Medication side effect (Acute) Dysphagia (Chronic) Vertebral artery stenosis (Chronic) Gout (Chronic) Medical History HTN (hypertension) Surgical History History of total left knee replacement History of lung surgery History of carpal tunnel surgery Family History Sister Stroke Mother Myocardial infarction, Onset Age: 70 Diabetes Father Myocardial infarction Diabetes Social History Smoking Status: Never smoker Second Hand Exposure: No; Do You Dip or Chew Tobacco: No (former userm quit about 04/2018); Hx Alcohol Use: Yes Alcohol type: beer Hx Substance Use: No Preferred Language: Belarusian Communication Ability: Effective Visual Impairment: Limited Senior [facility] Director Required: No Beliefs That Will Affect Care: None marital status: Current Living Situation: Spouse Feels Safe at Home: Yes Assistive Devices: Glasses Review of Systems Review of Systems: At least ten systems reviewed and negative, except as noted in the HPI. Physical Exam Physical Exam: General: Obese M, vitals as above, NAD, sitting up in bed, pleasant, conversing appropriately. A+Ox3, euthymic affect. HEENT: Normocephalic, atraumatic. Conjunctivae normal, anicteric sclerae. External ear and nose normal, oropharynx normal. Respiratory: Normal respiratory effort, some wheezing heard in L lung base with faint crackles. No accessory muscle use. Cardiovascular: Regular rate, rhythm, normal peripheral pulses, trace BLE edema. Vessels: No JVD. Abdomen/GI: Normal bowel sounds, soft, nontender to palpation in all quadrants. Extremities/Musculoskeletal: No cyanosis or clubbing, extremities motor strength intact, moves all extremities. Neurologic: No overt focal deficits, CN's II-XI not formally tested but appear grossly intact bilaterally. Results & Data Results & Data Vital Signs (Past 12 Hours) Vital Signs Temp Pulse Resp BP Pulse Ox O2 Del Method O2 Flow Rate 11/03/24 14:09 87 L 11/03/24 13:33 139/69 11/03/24 13:30 83 L 11/03/24 13:09 90 11/03/24 12:54 97 11/03/24 12:17 88 11/03/24 12:12 93 H 15 95 11/03/24 11:59 95 H 20 86 L Room Air 2 11/03/24 10:33 36.5 C 95 H 22 175/105 H 93 Room Air Laboratory Results Short CBC 11/03/24 Range/Units 11:00 WBC 9.77 (4.8-10.8) K/ul Hgb 16.3 (14.0-18.0) g/dl Hct 48.9 (42.0-52.0) % Plt Count 246 (130-400) K/uL BMP 11/03/24 11:00 Sodium 136 Potassium 4.2 Chloride 98 Carbon Dioxide 30 BUN 6 Creatinine 0.42 L Glucose 246 H Calcium 9.3 Diagnostic Findings Chest X-Ray 11/03/24 11:19 XR chest 2V PA/lateral CLINICAL HISTORY: cough TECHNIQUE: 2 views of the chest were obtained. Comparison: Comparison is made to chest radiograph 04/17/2020 FINDINGS: No lines and tubes are seen. Cardiomegaly is noted. Peribronchial thickening is seen. Airspace opacities are seen in the left lower lung. No evidence of pleural effusion or pneumothorax. IMPRESSION: Peribronchial thickening is seen compatible with infectious/inflammatory airways disease or viral pneumonia. Left lower lung airspace opacities likely represent atelectasis although superimposed aspiration/pneumonia cannot be excluded. ACT 112: Negative or not required by law. Electronically signed by: Garrett Hensley M.D. 11/03/2024 12:39 PM Finger X-Ray 11/03/24 12:03 XR finger(s) LT min 2V CLINICAL HISTORY: Left dorsal 5th finger laceration COMPARISON: Left hand radiographs July 13, 2014. FINDINGS: Evaluation of the left fifth finger is mildly compromised given difficulty positioning. There is a bandage on the fifth finger. No fracture or radiopaque foreign bodies are identified. There is mild osteoarthritis within the left fifth finger articulations. IMPRESSION: No fracture or radiopaque foreign body within the left fifth finger. ACT 112: Negative or not required by law. Electronically signed by: Alejo Lord M.D. 11/03/2024 12:26 PM Chest CTA 11/03/24 13:22 CT angio chest PE protocol CLINICAL HISTORY: ro PE TECHNIQUE: Multidetector row helical CT of the chest was performed with angiographic protocol. Coronal and sagittal reformations were obtained. Coronal and sagittal MIPS were obtained from the axial data set and were submitted for review. Automated dose lowering techniques and/or adjustment according to patient size were utilized for this exam. CT DOSE: 937.44 mGy.cm Comparison: Comparison is made to chest radiograph 06/03/2024 FINDINGS: Lungs and pleura: Tree-in-bud nodularity is seen favoring the upper lobes. There is a 6 mm nodule in the right middle lobe (series 4 image 106). Heart and pericardium: Cardiomegaly is seen with biatrial enlargement. Aortic valvular calcification is seen. Vessels: No evidence of pulmonary embolism. Mediastinum and rosa: Subcentimeter lymph nodes are seen. Chest wall and lower neck: Small thyroid nodules are noted which do not require follow-up by ACR criteria. Abdomen: Hepatic steatosis is noted. Bones: Degenerative changes in the thoracic spine. IMPRESSION: 1. No pulmonary embolus. 2. Tree in bud nodularity compatible with infectious/inflammatory process. ACT 112: Negative or not required by law. Electronically signed by: Garrett Hensley M.D. 11/03/2024 2:53 PM Medications Administered Discontinued Medications Albuterol (Albut/Ipratrop 3mg/0.5mg Neb 3 Ml Vial) 3 ml NEB NOW STA; Protocol Stop: 11/03/24 12:36 Last Admin: 11/03/24 12:39 Dose: 3 ml Documented By: HELEN Diphtheria/Pertussis/Tetanus Vacc (Diphther/Tetan/Pertus Vaccine (Tdap, Adol/Adult) 0.5ml) 0.5 ml IM .ONCE ONE Stop: 11/03/24 11:26 Last Admin: 11/03/24 11:56 Dose: 0.5 ml Documented By: TOYIN Ioversol (Optiray 320 125ml) 117 ml IV ONCE ONE Stop: 11/03/24 14:03 Last Admin: 11/03/24 14:03 Dose: 117 ml Documented By: JLUIO Lidocaine HCl (Lidocaine 1% Local 20 Ml Vial) 4 ml INFIL NOW ONE Stop: 11/03/24 11:26 Last Admin: 11/03/24 11:56 Dose: 4 ml Documented By: TOYIN Methylprednisolone (Methylprednisolone 125 Mg/2 Ml Vial) 125 mg IV NOW STA Stop: 11/03/24 14:52 Last Admin: 11/03/24 14:56 Dose: 125 mg Documented By: TOYIN Code Status & VTE Plan Code Status FULL CODE Supervising Physician Co-Signing Physician Notes Attending Addendum: Case reviewed with the advanced practitioner. I have personally performed a history and physical examination on the patient. I have reviewed the advanced practitioner's documentation on the date of service referenced in note, and I agree with, and take responsibility for the plan of care. please refer to her notes for full details patient seen and examined, records reviewed by myself as well on exam, patient seen resting in bed, sitting up, comfortable, not in distress States he feels improved compared to admission No active shortness of breath, chest pain no other symptoms VS noted and reviewed oriented x 3, not in distress, speaks in sentences with no effort nor accessory muscle use normal rate, regular rhythm, no murmurs Mild rhonchi bilaterally non distended, soft, nontender no bipedal edema, erythema, warmth no neuro deficits all labs, imaging noted and reviewed ASSESSMENT AND PLAN> Acute hypoxic respiratory failure secondary to bilateral pneumonia Parainfluenza infection CT chest: Tree-in-bud nodularity is seen favoring the upper lobes. There is a 6 mm nodule in the right middle lobe (series 4 image 106). Follow-up cultures Cefepime plus azithromycin Follow-up pulmonary nodule as an outpatient Fifth digit laceration Daptomycin IV other diagnoses and plan of care as per advanced practitioner's notes Herminio Schuler MD (3) Laceration of finger of left hand Damage to nail status: unspecified Encounter type: initial encounter Finger: little finger Foreign body presence: without foreign body Qualified Code(s): S61.217A - Laceration without foreign body of left little finger without damage to nail, initial encounter
[2024-11-03] MEDS: AZITHROMYCIN 250 MG TAB PO SCH (19:10)
[2024-11-03] MEDS: DAPTOmycin 350 MG in SYRINGE 0 ML IV STA (19:10)
[2024-11-03] MEDS: CEFEPIME 2000MG 2,000 MG/20 ML SYR IV STA (19:12)
[2024-11-03] MEDS ORDERED: MAGNESIUM HYDROXIDE SUSP 30 ML UDC PO PRN (19:58)
[2024-11-03] MEDS ORDERED: GLUCOSE 40% GEL 15 GM TUBE PO PRN (19:58)
[2024-11-03] MEDS ORDERED: GLUCAGON FOR INJ 1 MG VIAL SQ PRN (19:58)
[2024-11-03] MEDS ORDERED: ACETAMINOPHEN 325 MG TAB PO PRN (19:58)
[2024-11-03] MEDS ORDERED: ALBUT/IPRATROP 3MG/0.5MG NEB 3 ML VIAL NEB PRN (19:58)
[2024-11-03] MEDS ORDERED: GLUCOSE 10 TAB/TUBE PO PRN (19:58)
[2024-11-03] MEDS ORDERED: LORazepam 1 MG TAB PO PRN (19:58)
[2024-11-03] MEDS ORDERED: POLYETHYLENE (MIRALAX) 17 GM PACK PO PRN (19:58)
[2024-11-03] MEDS ORDERED: PHARMACY GLYCEMIC MGMT CONSULT PRN (19:58)
[2024-11-03] MEDS ORDERED: CARBOHYDRATES FOR HYPOGLYCEMIA PO PRN (19:58)
[2024-11-03] MEDS ORDERED: ONDANSETRON INJ 2 MG/ML 2 ML VIAL IV PRN (19:58)
[2024-11-03] MEDS ORDERED: DEXTROSE 50% 50 ML SYRINGE IV PRN (19:58)
[2024-11-03] MEDS ORDERED: GABAPENTIN 800MG ALCOHOL WITHDRAWAL LOAD PO STA (19:58)
[2024-11-03] MEDS: ENOXAPARIN INJ 40 MG/0.4 ML SYR SQ SCH (21:02)
[2024-11-03] MEDS: ATORVASTATIN 40 MG TAB PO SCH (21:02)
[2024-11-03] MEDS: carvediloL 25 MG TAB PO SCH (21:02)
[2024-11-03] MEDS: BUMETANIDE 1 MG TAB PO SCH (21:02)
[2024-11-03] MEDS: GABAPENTIN 400 MG CAP PO ONE (21:02)
[2024-11-03] MEDS: INSULIN ASPART PER UNIT CHARGE SC SCH (22:18)
[2024-11-03] MEDS: LANTUS PER UNIT CHARGE SQ SCH (22:18)
[2024-11-04] MEDS: ADVANCED PROBIOTIC 625 MG CAPSULE PO SCH (00:34)
[2024-11-04] MEDS: INSULIN ASPART PER UNIT CHARGE SC SCH ×2 (00:52→09:38)
[2024-11-04 01:30] LABS: Hematocrit (blood only) 47.4 % (42.0-52.0); Mean Corpuscular Hgb Conc 33.8 g/dL (32.0-36.0); Mean Corpuscular Volume 97.7 fL (80.0-100.0); Mean Platelet Volume 9.7 fL (9.4-12.4); Platelet Count 232 K/uL (130-400); RDW Coefficient of Variation 12.6 % (11.5-14.5); RDW Standard Deviation 45.5 fL (36.4-46.3); Red Blood Count 4.85 M/uL (4.70-6.10); White Blood Count 9.07 K/ul (4.8-10.8)
[2024-11-04 02:00] LABS: Albumin Level 3.6 gm/dl (3.4-5.0); BUN Creatinine Ratio 25.4 (10-20); Bilirubin,Total 0.5 mg/dl (0.2-1.0); Calcium 9.4 mg/dl (8.6-10.3); Creatinine Clr Calc Pharmacy 179.5 ml/min; Globulin 3.5 gm/dl (2.5-4.0); Magnesium 1.5 mg/dl (1.7-2.4); Potassium 4.7 mmol/L (3.5-5.1); Total Protein 7.1 gm/dl (6.0-8.3)
[2024-11-04 02:13] LABS: Folate (Folic Acid),Ser orPlas 16.39 ng/ml (>5.38)
[2024-11-04] MEDS: CEFEPIME 2000MG 2,000 MG/20 ML SYR IV SCH (02:21)
[2024-11-04] MEDS: methylPREDNISolone 20 MG in SYRINGE 0 ML IV ONE (04:02)
[2024-11-04] MEDS: ALBUT/IPRATROP 3MG/0.5MG NEB 3 ML VIAL NEB STA (04:02)
[2024-11-04] MEDS: MAGNESIUM SULFATE / D5W 1 GM/100 ML BAG IV SCH (04:03)
[2024-11-04] MEDS: FUROSEMIDE 40 MG/4 ML VIAL IV ONE ×2 (04:26→09:41)
[2024-11-04 05:00] LABS: Base Excess VBG 5.3 mEq/L; HCO3 VBG 34 mmol/L; Oxygen Saturation VBG 80.7 %; PCO2 VBG 65 mmHg (38-50); PO2 VBG 52 mmHg; pH VBG 7.32 (7.36-7.41)
--- NOTE | 2024-11-04 05:14 | XRay Report ---
EXAM: XR chest 1V portable CLINICAL HISTORY: O2 dropping and sweaty TECHNIQUE: An X-ray image of the chest is obtained in AP projection. COMPARISON: 04/17/2020 prior CXR is available for comparison. FINDINGS: Pulmonary Parenchyma: Opacification of the left lung base is noted as associated with left basal atelectatic changes and obliteration of the left costophrenic angle. Presence of small left pleural effusion could not be excluded. Increase of bronchovascular markings is noted bilaterally. Few atelectatic bands are seen at the right base. No pulmonary nodules are identified. No evidence of right pleural effusion or pleural thickening. Heart and Mediastinum: Prominent hilum is noted bilaterally due to vascular congestion. No mediastinal widening or masses. No hilar or mediastinal lymphadenopathy. Bony Thorax: Bony thorax appears intact without fractures or deformities. Soft Tissues: Soft tissues overlying the chest wall are unremarkable. IMPRESSION: 1. Compared to the previous study: decreased left lung volume is still noted with opacification of the left lung zone with left basal atelectatic changes. 2. Prominent hilum and increased vascular markings is noted, likely vascular congestion. 3. Presence of small left pleural effusion could not be excluded. Electronically signed by Ric Quan 11-04-2024 05:13 AM
--- NOTE | 2024-11-04 05:23 | Communication Note ---
Date of Service: November 04, 2024 Patient O2 sats dropping to the 80s as per RN. Horrible cough as per RN. Mouth breathing with episodic lethargy Patient refused BiPAP last night as per report. Patient denies aspiration. Chest x-ray as per my interpretation, atelectasis congestion vbg pH 7.32, pCO2 65 AP Worsening hypoxemic, hypercapnic respiratory failure Multifactorial Pulmonary congestion COPD exacerbation BiPAP Stat Lasix now in addition to patient torsemide Rx Nebs RTC, prednisone course in addition to respiratory antibiotics ordered admission VBG recheck Hold gabapentin taper given episodic lethargy and possible CO2 retention
[2024-11-04] MEDS: GABAPENTIN 400 MG CAP PO SCH (06:02)
[2024-11-04] MEDS: ALBUT/IPRATROP 3MG/0.5MG NEB 3 ML VIAL NEB SCH ×2 (06:21→10:23)
[2024-11-04 06:45] LABS: Base Excess VBG 5.6 mEq/L; HCO3 VBG 34 mmol/L; PCO2 VBG 68 mmHg (38-50); PO2 VBG 65 mmHg; pH VBG 7.31 (7.36-7.41)
[2024-11-04] MEDS: THIAMINE HCL 100 MG in SYRINGE 9 ML IV STA (06:51)
[2024-11-04 07:02] LABS: Estimated Average Glucose 246 mg/dl; Hemoglobin A1C 10.2 % (4.5-5.6)
[2024-11-04 08:25] LABS: Base Excess VBG 4.7 mEq/L; HCO3 VBG 33 mmol/L; Oxygen Saturation VBG 89.7 %; PCO2 VBG 59 mmHg (38-50); PO2 VBG 64 mmHg; pH VBG 7.35 (7.36-7.41)
[2024-11-04] MEDS ORDERED: THIAMINE HCL 100 MG TAB PO SCH (09:00)
[2024-11-04] MEDS: lisinopril 20 MG TAB PO SCH (09:35)
[2024-11-04] MEDS: CLOPIDOGREL BISULFATE 75 MG TAB PO SCH (09:36)
[2024-11-04] MEDS: FOLIC ACID 1 MG TAB PO SCH (09:36)
[2024-11-04] MEDS: allopurinoL 300 MG TAB PO SCH (09:36)
[2024-11-04] MEDS: allopurinoL 100 MG TAB PO SCH (09:36)
[2024-11-04] MEDS: POTASSIUM CHLORIDE 10 MEQ TABCR PO SCH (09:36)
[2024-11-04] MEDS: predniSONE 50 MG TAB PO SCH (10:42)
[2024-11-04] MEDS: cefTRIAXone SODIUM 2,000 MG/50 ML BAG IV SCH (10:48)
--- NOTE | 2024-11-04 11:23 | Pulmonary Consultation ---
Date of Consultation November 04, 2024 Assessment & Plan (1) Acute diastolic (congestive) heart failure: (2) Pulmonary hypertension: (3) Morbid obesity: (4) Acute on chronic respiratory failure with hypoxia and hypercapnia: (5) Obesity hypoventilation syndrome: (6) Multifocal pneumonia: (7) Parainfluenzal pneumonia: (8) Elevated hemidiaphragm: Plan CT chest 11/03/2024 personally reviewed: Elevation of the left hemidiaphragm Opacity appreciated in the lingula, atelectasis of the left lower lobe supradiaphragmatic Fluid in the left fissure Minimal mediastinal and left hilar lymphadenopathy --Acute on chronic chronic hypoxic hypercapnic respiratory failure Patient is not on any benzodiazepines or opioids at home I think the chronic hypercapnia is secondary to LUIS E and OHS on top of diastolic CHF Elevated left hemidiaphragm Pneumonia in the lingula cannot be ruled out Respiratory BioFire positive for parainfluenza 11/03/2024 BNP 323 --LUIS E Polysomnography 07/05/2020: Severe sleep apnea with apnea hypopnea index of 66. Patient's average saturation over the night was 83% with a minimum saturation of 61%. Used to be on auto CPAP at home Last compliance showed mean pressure of 7.8 cm H2O Has not been compliant with CPAP right now --Pulmonary hypertension Likely type II with a component of OHS and LUIS E Continue with treatment as above --Obesity Advised to lose with a diet and exercise Plan: Continue with antibiotics Continue with diuretics given elevated BNP I do not think patient is in exacerbation, decrease Solu-Medrol to 40 mg daily and titrated off in the next couple of days Incentive spirometry CPAP at bedtime and as needed shortness of breath O2 supplementation to keep oxygen saturation between 90-92% Case was discussed with RN at bedside Please note the above document was generated using voice recognition software. It may contain grammatical, syntax or spelling errors.Any formal questions or concerns about the content, text or information contained within the body of this dictation should be directly addressed to the provider for clarification. History of Present Illness Attending Physician: Roland Chauhan MD History of Present Illness 54-year-old male is admitted to the hospital for shortness of breath Past medical history: Diastolic CHF, insulin-dependent diabetes type 2, history of stroke At the time of examination patient was saturating 95 to 96% on 9 L nasal cannula, I went down to 6 L He was not in any respiratory distress Denied any headache, no blurry vision Has been complaining of chest congestion, difficulty bringing up the phlegm better when he does bring up the phlegm is mostly clear. He was supposed to be on CPAP but he returned it long time ago No dysuria or diarrhea Denies any chest pain right now. Stated that shortness of breath is improved after coming to the hospital Social history: Non-smoker, no illicit drug use, drinks 3 beers on a daily basis. 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 Exposure to fumes positive. On disability right now Pets: 6 dogs and a rabbit. Patient does have chickens outside of the home. He stays on a farm Allergies: No seasonal allergies. No personal history of asthma but that he has a sister with asthma No family history of lung cancer. Allergies Allergy/AdvReac Type Severity Reaction Status Date / Time No Known Allergies Allergy Verified 11/03/24 15:36 Home Medications Medication Instructions Recorded Confirmed Type insulin aspart U-100 100 unit/mL See Rx Instructions .Route .COMPLEX 08/14/21 11/03/24 History (3 mL) subcutaneous pen insulin glargine 100 unit/mL (3 40 unit subcut BID 08/14/21 11/03/24 History mL) subcutaneous pen (Lantus Solostar U-100 Insulin) atorvastatin 80 mg tablet (Lipitor) 80 mg PO HS #90 tabs 03/01/22 11/03/24 Rx lactulose 20 gram/30 mL oral 20 g (30 mL) PO BID PRN 03/01/22 11/03/24 Rx solution constipation #3,000 mL lisinopril 20 mg tablet 20 mg PO QAM #90 tabs 03/01/22 11/03/24 Rx metformin 1,000 mg tablet 1,000 mg PO BIDM #180 tabs 03/01/22 11/03/24 Rx potassium chloride 10 mEq 10 meq PO QAM #90 caps 03/01/22 11/03/24 Rx capsule,extended release bumetanide 2 mg tablet 2 mg PO BID #180 tabs 08/28/23 11/03/24 Rx allopurinol 100 mg tablet 100 mg PO UD 11/03/24 11/03/24 History allopurinol 300 mg tablet 300 mg PO UD 11/03/24 11/03/24 History carvedilol 25 mg tablet 25 mg PO BID 11/03/24 11/03/24 History clopidogrel 75 mg tablet (Plavix) 75 mg PO QAM 11/03/24 11/03/24 History dapagliflozin propanediol 5 mg 5 mg PO QAM 11/03/24 11/03/24 History tablet (Farxiga) dulaglutide 4.5 mg/0.5 mL 4.5 mg subcut WK 11/03/24 11/03/24 History subcutaneous pen injector (Trulicity) gabapentin 100 mg capsule 100 mg PO TID PRN Pain 11/03/24 11/03/24 History Patient History Medical History (Updated 11/04/24 @ 19:28 by Sabra Vásquez MD, [facility]) HTN (hypertension) Surgical History History of total left knee replacement History of lung surgery History of carpal tunnel surgery Family History Sister Stroke Mother Myocardial infarction, Onset Age: 70 Diabetes Father Myocardial infarction Diabetes Social History Smoking Status: Never smoker Tobacco Type: Smokeless Tobacco (Dip or Chew) Second Hand Exposure: No; Do You Dip or Chew Tobacco: Yes; Hx Alcohol Use: No Hx Substance Use: No Preferred Language: Turkish Communication Ability: Effective Visual Impairment: Limited Pulp Mixer Required: No Beliefs That Will Affect Care: None marital status: Current Living Situation: Family Current Living Situation Comment: lives with and son Feels Safe at Home: Yes Assistive Devices: None Review of Systems 2 Review of Systems: All systems reviewed & are unremarkable except as noted in HPI & below Physical Exam 2 Physical Exam: Constitutional: No acute distress HEENT: EOMI, PERRLA Respiratory system: decreased air entry bilaterally, no wheeze, rhonchi, positive crackles bilateral lower lobes CVS: S1-S2 positive, no murmurs or gallops Abdomen: Soft, nontender, nondistended, positive bowel sounds x4 Extremities: +2 pulses bilaterally radialis/ dorsalis pedis, no cyanosis, +2 pitting edema bilateral lower extremity Neuro: Awake alert oriented x3 Psych: Normal mood and affect G/U: Positive Sommer Skin: no rashes, warm and dry Lymphatic: no cervical or axillary lymphadenopathy Results & Data Results & Data Vital Signs (Past 12 Hours) Vital Signs Pulse Pulse Pulse Pulse Pulse Pulse Pulse 11/04/24 10:27 11/04/24 10:00 91 H 107 H 87 81 85 11/04/24 07:31 11/04/24 07:31 11/04/24 07:31 11/04/24 07:31 11/04/24 07:30 74 11/04/24 07:06 82 11/04/24 07:06 81 11/04/24 07:02 81 11/04/24 07:00 11/04/24 06:48 94 H 11/04/24 06:30 71 11/04/24 06:30 11/04/24 06:30 11/04/24 06:30 11/04/24 06:30 11/04/24 06:07 8 L 11/04/24 06:00 11/04/24 06:00 11/04/24 06:00 69 11/04/24 05:57 67 11/04/24 05:47 73 11/04/24 05:33 74 11/04/24 05:30 74 11/04/24 05:00 74 11/04/24 04:00 74 11/04/24 03:30 74 11/04/24 03:00 72 11/04/24 02:30 71 11/04/24 02:00 68 11/04/24 01:30 68 11/04/24 01:00 73 11/04/24 00:32 83 11/03/24 23:30 77 11/03/24 23:16 85 Resp Resp Resp Resp Resp Resp BP 11/04/24 10:27 16 11/04/24 10:00 18 18 16 15 16 11/04/24 07:31 118/86 11/04/24 07:31 118/86 11/04/24 07:31 118/86 11/04/24 07:31 118/86 11/04/24 07:30 18 11/04/24 07:06 20 11/04/24 07:06 11/04/24 07:02 20 11/04/24 07:00 146/91 H 11/04/24 06:48 15 11/04/24 06:30 17 11/04/24 06:30 118/83 11/04/24 06:30 118/83 11/04/24 06:30 118/83 11/04/24 06:30 118/83 11/04/24 06:07 18 11/04/24 06:00 106/80 11/04/24 06:00 106/80 11/04/24 06:00 17 11/04/24 05:57 20 11/04/24 05:47 22 11/04/24 05:33 14 11/04/24 05:30 16 127/80 11/04/24 05:00 22 120/87 11/04/24 04:00 16 122/90 11/04/24 03:30 16 119/77 11/04/24 03:00 16 113/78 11/04/24 02:30 18 110/74 11/04/24 02:00 16 128/87 11/04/24 01:30 18 123/78 11/04/24 01:00 18 124/75 11/04/24 00:32 21 102/57 L 11/03/24 23:30 18 120/78 11/03/24 23:16 BP Pulse Ox Pulse Ox Pulse Ox Pulse Ox Pulse Ox Pulse Ox 11/04/24 10:27 94 11/04/24 10:00 92 87 L 88 L 93 84 L 11/04/24 07:31 11/04/24 07:31 11/04/24 07:31 11/04/24 07:31 11/04/24 07:30 95 11/04/24 07:06 92 11/04/24 07:06 11/04/24 07:02 94 11/04/24 07:00 11/04/24 06:48 96 11/04/24 06:30 95 11/04/24 06:30 11/04/24 06:30 11/04/24 06:30 11/04/24 06:30 11/04/24 06:07 106/80 91 11/04/24 06:00 11/04/24 06:00 11/04/24 06:00 92 11/04/24 05:57 92 11/04/24 05:47 94 11/04/24 05:33 91 11/04/24 05:30 91 01/01/25 05:00 91 11/04/24 04:00 96 11/04/24 03:30 92 11/04/24 03:00 89 L 11/04/24 02:30 91 11/04/24 02:00 92 11/04/24 01:30 94 11/04/24 01:00 91 11/04/24 00:32 86 L 11/03/24 23:30 90 11/03/24 23:16 O2 Del Method O2 Flow Rate O2 Flow Rate O2 Flow Rate O2 Flow Rate O2 Flow Rate FiO2 11/04/24 10:27 Nasal Cannula 3 11/04/24 10:00 3 2 1 2 11/04/24 07:31 11/04/24 07:31 11/04/24 07:31 11/04/24 07:31 11/04/24 07:30 11/04/24 07:06 11/04/24 07:06 11/04/24 07:02 45 11/04/24 07:00 11/04/24 06:48 11/04/24 06:30 11/04/24 06:30 11/04/24 06:30 11/04/24 06:30 11/04/24 06:30 11/04/24 06:07 BiPAP 11/04/24 06:00 11/04/24 06:00 11/04/24 06:00 11/04/24 05:57 BiPAP 11/04/24 05:47 45 11/04/24 05:33 11/04/24 05:30 Nasal Cannula 11/04/24 05:00 Nasal Cannula 3 11/04/24 04:00 Nasal Cannula 3 11/04/24 03:30 Oxymask 3 11/04/24 03:00 Nasal Cannula 4 11/04/24 02:30 Nasal Cannula 3 11/04/24 02:00 Nasal Cannula 3 11/04/24 01:30 Nasal Cannula 3 11/04/24 01:00 Nasal Cannula 3 11/04/24 00:32 Nasal Cannula 11/03/24 23:30 Nasal Cannula 2 11/03/24 23:16 Laboratory Results 11/04/24 01:20 11/04/24 01:20 PG Care Time/CCT Total # of Minutes Spent Total Time Spent with Patient: Total time spent is greater than 50% in coordination of care (as documented) at patient's floor/unit and/or counseling patient: Coding Level of Care Code 49757 INT INP/OBS CARE MIN Diagnoses Acute diastolic (congestive) heart failure I50.31 Pulmonary hypertension I27.20 Morbid obesity E66.01 Acute on chronic respiratory failure with hypoxia and hypercapnia J96.21; J96.22 Obesity hypoventilation syndrome E66.2 Multifocal pneumonia J18.9 Parainfluenzal pneumonia J12.2 Elevated hemidiaphragm J98.6
--- NOTE | 2024-11-04 11:57 | XRay Report ---
XR chest 1V portable CLINICAL HISTORY: increasing hypoxia COMPARISON STUDY: Chest CT November 03, 2024. Chest radiograph performed earlier today. FINDINGS: Mild elevation of the left hemidiaphragm is unchanged. There is no pneumothorax or pleural effusion. Linear left basilar density favors atelectasis. Minimal right lower lung opacity is present with interstitial thickening. Cardiomegaly is again noted. There is pulmonary vascular congestion. IMPRESSION: 1. Cardiomegaly with pulmonary vascular congestion. 2. Mild right lower lung opacity with interstitial thickening. When correlating with recent CT, this favors an infectious process. 3. Linear left basilar density which favors atelectasis. ACT 112: Negative or not required by law. Electronically signed by: Alejo Lord M.D. 11/04/2024 11:54 AM
--- NOTE | 2024-11-04 12:31 | XRay Report ---
XR chest 1V portable CLINICAL HISTORY: s/p RIGHT IJ CVL COMPARISON STUDY: Chest radiograph performed earlier today. FINDINGS: No central venous catheter is identified on this exam. Low lung volumes are unchanged. Left basilar opacity is again noted. Cardiomediastinal silhouette is stable. Pulmonary vascular congestio n is again noted. There is no pneumothorax or pleural effusion. IMPRESSION: 1. No central venous catheter identified. No pneumothorax. 2. Persistent left basilar opacity. This favors atelectasis although an infectious process could appe ar similar. 3. Cardiomegaly with pulmonary vascular congestion. ACT 112: Negative or not required by law. Electronically signed by: Alejo Lord M.D. 11/04/2024 12:29 PM
[2024-11-04] MEDS ORDERED: methylPREDNISolone 40 MG in SYRINGE 0 ML IV SCH (14:00)
[2024-11-04] MEDS ORDERED: methylPREDNISolone 125 MG/2 ML VIAL IV SCH (14:00)
[2024-11-04] MEDS: ALPRAZolam 0.25 MG TABLET PO ONE (15:08)
--- NOTE | 2024-11-04 15:29 | Pharmacy Report ---
Pharmacy Glycemic Short Note 2 - Date of Service November 04, 2024 - Glycemic Short BSG Results (Last 24 hours): 11/03/24 11/04/24 11/04/24 21:29 00:36 01:20 Glucose 344 H* POC Glucose 312 H* 281 H 11/04/24 11/04/24 11/04/24 04:11 06:28 09:31 Glucose POC Glucose 264 H 277 H 253 H 11/04/24 13:04 Glucose POC Glucose 230 H OUTPATIENT ANTIDIABETIC REGIMEN: * Lantus 40 units SC BID * Novolog SC with meals (18 u / 15 u / 15 u) + CF 18 * Trulicity 4.5 mg SC every Saturday * Farxiga 5 mg PO AM HbA1c: * 10.2% (11/04/24) ASSESSMENT: * 54 yo M admitted on 11/03/24 secondary to influenza. Pharmacy has been consulted to assist with inpatient glycemic management. Patient is a Type 2 diabetic as an outpatient. Please refer to outpatient regimen and most recent HbA1c above. * Received 40 units basla + 22 units correctional last night. Fasting BSG was 277 mg/dL. Received 125 mg IV Solumedrol in ED followed by 20 mg IV x 1 dose upon arrival to floor. Streroids have since been adjusted to Solumedrol 40 mg IV once daily starting tomorrow morning. * Continue home basal dose of 40 units BID for now. Continue with Novolog based on weight/stress of 3. PLAN FOR INPATIENT GLYCEMIC CONTROL: * Hold outpatient oral diabetes medications * Basal insulin * Lantus 40 units SQ BID * Bolus insulin * NovoLog per scale ACHS or Q6hrs while NPO * Goal Range: Low 110 mg/dL - High 140 mg/dL * Correction Factor: 15 mg/dL/unit * Nutritional / Prandial insulin per carb ratio of 1 unit per 4 grams CHO consumed
--- NOTE | 2024-11-04 16:13 | Hospitalist Progress Note ---
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 Parainfluenzal Pneumonia Acute Respiratory Failure with Hypoxia: Possible Acute on chronic diastolic HF Patient was noted to become hypoxic at 86% SpO2 on RA while undergoing laceration repair in the ED. CTA chest did not show PE; found to have tree-in-bud nodularity compatible with infectious/inflammatory process. Chest x-ray repeated several times today; shows persistent left basilar opacity; cardiomegaly with pulmonary vascular congestion. Continue on IV ceftriaxone and azithromycin. Also started on IV methylprednisolone. Diuresed with IV Lasix; placed on oral Bumex which she takes at home. Continue [id number] DuoNeb Droplet precaution Pulmonology consulted due to persistent need for BiPAP Left 5th Digit Laceration S/P Repair: Patient sustained a laceration to the dorsal aspect of his left fifth digit whilst skinning a deer a day prior to admission. Started on empiric antibiotics . XR of this finger was unremarkable. Patient received an updated Tdap booster in the ED. Elevated Troponin: Initial troponin slightly bumped at 20.7, repeat troponin improved to 8.8; EKG without any evidence of acute ST changes. L Insulin-Requiring DM Type II: Hold home agents, basal/bolus regimen while inpatient. BSG checks ACHS. Most recent Hgb A1c was 10.2% about 4 months ago. Glycemic pharmacy consulted for further insulin management. Other Chronic Medical Conditions: * HLD - Continue atorvastatin. * HTN - Continue carvedilol, lisinopril. * H/O CVA - Continue Plavix. * Gout - Continue allopurinol. * LUIS E - Ordered CPAP HS. * Alcohol Abuse - Patient drinks 3-10 beers/day typically. Unsure of when exactly his last drink was. monitor fo withdrawal * Chronic Diastolic HF - BNP 323. No acute CHF exacerbation as of now. Closely monitor I&Os, fluid restriction of 2L/daily. Daily weights. Continue home Bumex, Farxiga. DVT Prophylaxis: SQ Lovenox Code Status: FULL CODE PCP: Aislinn Francois PA-C Disposition: PCU Time spent evaluating patient, direct bedside care, chart review, placing orders, interpretation of diagnostic studies, discussion with consultants, patient, and family members, as well as other required patient management activities is 60 minutes Please note the above document was generated using voice recognition software. It may contain grammatical, syntax or spelling errors. Any formal questions or concerns about the content, text or information contained within the body of this dictation should be directly addressed to the provider for clarification Admission and Anticipated Discharge Date Admission Date: November 03, 2024 Subjective Patient seen several times during the day. In the a.m.; he was off BiPAP and was doing well. However, he desaturated requiring BiPAP again. Later in the evening, he was transition of to OxyMask. He is alert oriented x 3. Hemodynamics are stable Review of Systems Review of Systems: All systems reviewed & are unremarkable except as noted in Subjective Physical Exam Physical Exam: Constitutional: Awake, oriented x 3; in mild respiratory distress. Respiratory: Decreased breath sounds at bilateral bases Cardiovascular: RRR, no murmur, no edema Vessels: no JVD or carotid bruit Chest: normal inspection of chest Abdomen: normal bowel sounds, soft, nontender, no hepatosplenomegaly Musculoskeletal: no cyanosis or clubbing, extremities motor strength 5/5 Skin: no rashes, warm and dry normal turgor Neurologic: PERRL, EOMI, accommodation nl, no face palsy, no dysarthria CN's II- XI intact bilaterally and moves all extremities Psychiatric: A+Ox3, euthymic affect Results & Data Results & Data Vital Signs (Past 12 Hours) Vital Signs Pulse Pulse Pulse Pulse Pulse Pulse Pulse 11/04/24 16:00 70 11/04/24 15:44 72 11/04/24 15:09 69 11/04/24 14:10 69 11/04/24 11:00 80 11/04/24 10:33 88 11/04/24 10:30 11/04/24 10:30 11/04/24 10:27 11/04/24 10:00 11/04/24 10:00 91 H 107 H 87 81 85 11/04/24 09:48 84 11/04/24 09:30 83 11/04/24 09:30 11/04/24 09:30 11/04/24 09:03 85 11/04/24 09:00 11/04/24 09:00 11/04/24 08:51 81 11/04/24 08:36 80 11/04/24 08:30 11/04/24 08:00 11/04/24 08:00 11/04/24 07:51 76 11/04/24 07:36 79 11/04/24 07:31 11/04/24 07:31 11/04/24 07:31 11/04/24 07:31 11/04/24 07:30 74 11/04/24 07:06 82 11/04/24 07:06 81 11/04/24 07:02 81 11/04/24 07:00 11/04/24 06:48 94 H 11/04/24 06:30 71 11/04/24 06:30 11/04/24 06:30 11/04/24 06:30 11/04/24 06:30 11/04/24 06:07 8 L 11/04/24 06:00 11/04/24 06:00 11/04/24 06:00 69 11/04/24 05:57 67 11/04/24 05:47 73 11/04/24 05:33 74 11/04/24 05:30 74 11/04/24 05:00 74 Resp Resp Resp Resp Resp Resp BP 11/04/24 16:00 16 11/04/24 15:44 11/04/24 15:09 18 11/04/24 14:10 15 11/04/24 11:00 21 11/04/24 10:33 18 11/04/24 10:30 108/86 11/04/24 10:30 108/86 11/04/24 10:27 16 11/04/24 10:00 127/85 11/04/24 10:00 18 18 16 15 16 11/04/24 09:48 19 11/04/24 09:30 13 11/04/24 09:30 128/100 11/04/24 09:30 128/100 11/04/24 09:03 16 11/04/24 09:00 125/84 11/04/24 09:00 125/84 11/04/24 08:51 20 11/04/24 08:36 20 11/04/24 08:30 119/75 11/04/24 08:00 115/88 11/04/24 08:00 115/88 11/04/24 07:51 11/04/24 07:36 20 11/04/24 07:31 118/86 11/04/24 07:31 118/86 11/04/24 07:31 118/86 11/04/24 07:31 118/86 11/04/24 07:30 18 11/04/24 07:06 20 11/04/24 07:06 11/04/24 07:02 20 11/04/24 07:00 146/91 H 11/04/24 06:48 15 11/04/24 06:30 17 11/04/24 06:30 118/83 11/04/24 06:30 118/83 11/04/24 06:30 118/83 11/04/24 06:30 118/83 11/04/24 06:07 18 11/04/24 06:00 106/80 11/04/24 06:00 106/80 11/04/24 06:00 17 11/04/24 05:57 20 11/04/24 05:47 22 11/04/24 05:33 14 11/04/24 05:30 16 127/80 11/04/24 05:00 22 120/87 BP Pulse Ox Pulse Ox Pulse Ox Pulse Ox Pulse Ox Pulse Ox 11/04/24 16:00 97/62 L 95 11/04/24 15:44 11/04/24 15:09 91/61 L 92 11/04/24 14:10 94 11/04/24 11:00 96 11/04/24 10:33 11/04/24 10:30 11/04/24 10:30 11/04/24 10:27 94 11/04/24 10:00 11/04/24 10:00 92 87 L 88 L 93 84 L 11/04/24 09:48 95 11/04/24 09:30 11/04/24 09:30 11/04/24 09:30 11/04/24 09:03 93 11/04/24 09:00 11/04/24 09:00 11/04/24 08:51 94 11/04/24 08:36 96 11/04/24 08:30 11/04/24 08:00 11/04/24 08:00 11/04/24 07:51 95 11/04/24 07:36 94 11/04/24 07:31 11/04/24 07:31 11/04/24 07:31 11/04/24 07:31 11/04/24 07:30 95 11/04/24 07:06 92 11/04/24 07:06 11/04/24 07:02 94 11/04/24 07:00 11/04/24 06:48 96 11/04/24 06:30 95 11/04/24 06:30 11/04/24 06:30 11/04/24 06:30 11/04/24 06:30 11/04/24 06:07 106/80 91 11/04/24 06:00 11/04/24 06:00 11/04/24 06:00 92 11/04/24 05:57 92 11/04/24 05:47 94 11/04/24 05:33 91 11/04/24 05:30 91 11/04/24 05:00 91 O2 Del Method O2 Flow Rate O2 Flow Rate O2 Flow Rate O2 Flow Rate O2 Flow Rate FiO2 11/04/24 16:00 Oxymask 8 11/04/24 15:44 11/04/24 15:09 Oxymask 8 11/04/24 14:10 BiPAP 35 11/04/24 11:00 11/04/24 10:33 11/04/24 10:30 11/04/24 10:30 11/04/24 10:27 Nasal Cannula 3 11/04/24 10:00 11/04/24 10:00 3 2 1 2 11/04/24 09:48 11/04/24 09:30 11/04/24 09:30 11/04/24 09:30 11/04/24 09:03 11/04/24 09:00 11/04/24 09:00 11/04/24 08:51 11/04/24 08:36 11/04/24 08:30 11/04/24 08:00 11/04/24 08:00 11/04/24 07:51 11/04/24 07:36 11/04/24 07:31 11/04/24 07:31 11/04/24 07:31 11/04/24 07:31 11/04/24 07:30 11/04/24 07:06 11/04/24 07:06 11/04/24 07:02 45 11/04/24 07:00 11/04/24 06:48 11/04/24 06:30 11/04/24 06:30 11/04/24 06:30 11/04/24 06:30 11/04/24 06:30 11/04/24 06:07 BiPAP 11/04/24 06:00 11/04/24 06:00 11/04/24 06:00 11/04/24 05:57 BiPAP 11/04/24 05:47 45 11/04/24 05:33 11/04/24 05:30 Nasal Cannula 11/04/24 05:00 Nasal Cannula 3 (3) Laceration of finger of left hand Damage to nail status: unspecified Encounter type: initial encounter Finger: little finger Foreign body presence: without foreign body Qualified Code(s): S61.217A - Laceration without foreign body of left little finger without damage to nail, initial encounter
[2024-11-04] MEDS: DAPTOmycin 350 MG in SYRINGE 0 ML IV SCH (18:40)
[2024-11-04] MEDS: ALPRAZolam 0.25 MG TABLET PO PRN (22:00)
[2024-11-04] MEDS: guaiFENesin 600 MG TABCR PO SCH (22:00)
[2024-11-04] MEDS ORDERED: GABAPENTIN 400 MG CAP PO SCH (22:00)
[2024-11-04] MEDS ORDERED: Nursing to Pharmacy Communication SCH (23:15)
[2024-11-05 06:49] LABS: Basophils # (auto) 0.06 K/uL (0.00-0.20); Basophils % (auto) 0.6 %; Eosinophils # (auto) 0.07 K/uL (0.00-0.50); Eosinophils % (auto) 0.7 %; Hematocrit (blood only) 45.5 % (42.0-52.0); Immature Granulocytes # (auto) 0.15 K/uL (0.01-0.20); Immature Granulocytes % (auto) 1.4 %; Lymphocytes # (auto) 2.05 K/uL (1.20-3.40); Lymphocytes % (auto) 19.5 %; Mean Corpuscular Hemoglobin 32.9 pg (25.0-34.0); Mean Corpuscular Volume 99.8 fL (80.0-100.0); Mean Platelet Volume 9.8 fL (9.4-12.4); Monocytes # (auto) 1.03 K/uL (0.11-0.59); Monocytes % (auto) 9.8 %; Neutrophils # (auto) 7.13 K/uL (1.40-6.50); Platelet Count 250 K/uL (130-400); RDW Coefficient of Variation 12.9 % (11.5-14.5); RDW Standard Deviation 47.8 fL (36.4-46.3); Red Blood Count 4.56 M/uL (4.70-6.10); White Blood Count 10.49 K/ul (4.8-10.8)
[2024-11-05 07:20] LABS: BUN Creatinine Ratio 47.7 (10-20); Creatinine Clr Calc Pharmacy 123.4 ml/min; Potassium 4.1 mmol/L (3.5-5.1)
[2024-11-05] MEDS: INSULIN ASPART PER UNIT CHARGE SC SCH (08:03)
[2024-11-05] MEDS: THIAMINE HCL 100 MG TAB PO SCH (08:04)
[2024-11-05] MEDS: methylPREDNISolone 40 MG in SYRINGE 0 ML IV SCH (08:07)
[2024-11-05] MEDS: FARXIGA PO SCH (08:09)
--- NOTE | 2024-11-05 08:44 | Hospitalist Progress Note ---
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 Parainfluenzal Pneumonia Acute Respiratory Failure with Hypoxia: Possible Acute on chronic diastolic HF Patient was noted to become hypoxic at 86% SpO2 on RA while undergoing laceration repair in the ED. CTA chest did not show PE; found to have tree-in-bud nodularity compatible with infectious/inflammatory process. Chest x-ray repeated several times today; shows persistent left basilar opacity; cardiomegaly with pulmonary vascular congestion. Continue on IV ceftriaxone and azithromycin. methylprednisone dced. Diuresed with IV Lasix; placed on oral Bumex which he takes at home. Continue hknynf-zfb-labdu DuoNeb Droplet precaution Pulmonology consulted due to persistent need for BiPAP; Recommended to continue antibiotic and diuretics. Wean off oxygen as tolerated Remove Sommer catheter BiPAP at night Left 5th Digit Laceration S/P Repair: Patient sustained a laceration to the dorsal aspect of his left fifth digit whilst skinning a deer a day prior to admission. Started on empiric antibiotics . XR of this finger was unremarkable. Patient received an updated Tdap booster in the ED. Elevated Troponin: Initial troponin slightly bumped at 20.7, repeat troponin improved to 8.8; EKG without any evidence of acute ST changes. L Insulin-Requiring DM Type II: Hold home agents, basal/bolus regimen while inpatient. BSG checks ACHS. Most recent Hgb A1c was 10.2% about 4 months ago. Glycemic pharmacy consulted for further insulin management. Other Chronic Medical Conditions: * HLD - Continue atorvastatin. * HTN - Continue carvedilol, lisinopril. * H/O CVA - Continue Plavix. * Gout - Continue allopurinol. * LUIS E - Ordered CPAP HS. * Alcohol Abuse - Patient drinks 3-10 beers/day typically. Unsure of when exactly his last drink was. monitor fo withdrawal * Chronic Diastolic HF - BNP 323. No acute CHF exacerbation as of now. Closely monitor I&Os, fluid restriction of 2L/daily. Daily weights. Continue home Bumex, Farxiga. DVT Prophylaxis: SQ Lovenox Code Status: Discussed with patient at bedside on 11/04/2024; he does not want intubation. Confirmed CODE STATUS with over the phone as well. PCP: Aislinn Francois PA-C Disposition: PCU Time spent evaluating patient, direct bedside care, chart review, placing orders, interpretation of diagnostic studies, discussion with consultants, patient, and family members, as well as other required patient management activities is 60 minutes Please note the above document was generated using voice recognition software. It may contain grammatical, syntax or spelling errors. Any formal questions or concerns about the content, text or information contained within the body of this dictation should be directly addressed to the provider for clarification Admission and Anticipated Discharge Date Admission Date: November 03, 2024 Subjective Patient seen and examined at bedside. He reports that his shortness of breath has significantly improved compared to yesterday No significant events overnight Review of Systems Review of Systems: All systems reviewed & are unremarkable except as noted in Subjective Physical Exam Physical Exam: Constitutional: Awake, oriented x 3; in mild respiratory distress. Respiratory: Decreased breath sounds at bilateral bases Cardiovascular: RRR, no murmur, no edema Vessels: no JVD or carotid bruit Chest: normal inspection of chest Abdomen: normal bowel sounds, soft, nontender, no hepatosplenomegaly Musculoskeletal: no cyanosis or clubbing, extremities motor strength 5/5 Skin: no rashes, warm and dry normal turgor Neurologic: PERRL, EOMI, accommodation nl, no face palsy, no dysarthria CN's II-XI intact bilaterally and moves all extremities Psychiatric: A+Ox3, euthymic affect Results & Data Results & Data Vital Signs (Past 12 Hours) Vital Signs Temp Pulse Pulse Resp BP Pulse Ox O2 Del Method 11/05/24 08:12 36.7 C 70 20 107/63 94 Nasal Cannula, High Flow Nasal Cannula 11/05/24 07:12 68 18 94 Nasal Cannula 11/05/24 05:41 60 11/05/24 05:05 36.5 C 63 18 98/68 L 97 BiPAP 11/05/24 03:05 59 L 22 94 11/05/24 03:05 59 L 22 94 BiPAP 11/04/24 23:53 36.5 C 63 18 92/63 L 94 BiPAP 11/04/24 23:14 57 L 22 94 11/04/24 22:30 64 23 96 11/04/24 22:30 64 23 96 BiPAP 11/04/24 21:43 69 O2 Flow Rate FiO2 11/05/24 08:12 3 11/05/24 07:12 3.5 11/05/24 05:41 11/05/24 05:05 11/05/24 03:05 35 11/05/24 03:05 35 11/04/24 23:53 11/04/24 23:14 35 11/04/24 22:30 35 11/04/24 22:30 35 11/04/24 21:43 (3) Laceration of finger of left hand Damage to nail status: unspecified Encounter type: initial encounter Finger: little finger Foreign body presence: without foreign body Qualified Code(s): S61.217A - Laceration without foreign body of left little finger without damage to nail, initial encounter
[2024-11-05] MEDS ORDERED: predniSONE 20 MG TAB PO SCH (09:00)
--- NOTE | 2024-11-05 09:17 | Pulmonology Progress Note ---
Date of Service November 05, 2024 Assessment & Plan (1) Acute diastolic (congestive) heart failure: (2) Pulmonary hypertension: (3) Morbid obesity: (4) Acute on chronic respiratory failure with hypoxia and hypercapnia: (5) Obesity hypoventilation syndrome: (6) Multifocal pneumonia: (7) Parainfluenzal pneumonia: (8) Elevated hemidiaphragm: Plan CT chest 11/03/2024 personally reviewed: Elevation of the left hemidiaphragm Opacity appreciated in the lingula, atelectasis of the left lower lobe supradiaphragmatic Fluid in the left fissure Minimal mediastinal and left hilar lymphadenopathy --Acute on chronic chronic hypoxic hypercapnic respiratory failure Patient is not on any benzodiazepines or opioids at home I think the chronic hypercapnia is secondary to LUIS E and OHS on top of diastolic CHF Elevated left hemidiaphragm Pneumonia in the lingula cannot be ruled out Respiratory BioFire positive for parainfluenza 11/03/2024 BNP 323 --LUIS E Polysomnography 07/05/2020: Severe sleep apnea with apnea hypopnea index of 66. Patient's average saturation over the night was 83% with a minimum saturation of 61%. Used to be on auto CPAP at home Last compliance showed mean pressure of 7.8 cm H2O Has not been compliant with CPAP right now --Pulmonary hypertension Likely type II with a component of OHS and LUIS E Continue with treatment as above --Obesity Advised to lose with a diet and exercise Admission and Anticipated Discharge Date Admission Date: November 03, 2024 Supervising Physician Co-Signing Physician Notes I saw and evaluated the patient with Dexter Sharma PA-C, and agree with findings and plan as documented in the note. Patient seen and examined at bedside. No acute distress, no adverse events overnight He was saturating 94% on 3 L, I went down to 2 L He stated he is feeling better, shortness of breath is improved Has been diuresing well Coughing up but having difficulty bringing up the phlegm Denies any hemoptysis Did use his CPAP overnight Constitutional: No acute distress HEENT: EOMI, PERRLA Respiratory system: decreased air entry bilaterally, no wheeze, rhonchi, positive crackles bilateral lower lobes CVS: S1-S2 positive, no murmurs or gallops Abdomen: Soft, nontender, nondistended, positive bowel sounds x4 Extremities: +2 pulses bilaterally radialis/ dorsalis pedis, no cyanosis, +2 pitting edema bilateral lower extremity Neuro: Awake alert oriented x3 Psych: Normal mood and affect G/U: Positive Sommer Plan: In/out: -330, urine output 700 mL Continue with antibiotics Continue with diuretics given elevated BNP and dependent edema. I do not think patient is in exacerbation. Not bronchospastic on exam. DC Solu-Medrol Incentive spirometry Continue with BiPAP/CPAP at bedtime and as needed shortness of breath. Continue with Mucinex and flutter valve O2 supplementation to keep oxygen saturation between 90-92% Case was discussed with RN at bedside Please note the above document was generated using voice recognition software. It may contain grammatical, syntax or spelling errors.Any formal questions or concerns about the content, text or information contained within the body of this dictation should be directly addressed to the provider for clarification. Subjective Patient seen and evaluated at bedside. He is saturating well on 3 L nasal cannula. He reports that he was able to wear CPAP last night, but states that it was uncomfortable and he did not like it. He has been doing much ambulation around the room. His cough is persistent. No complaints of chest pain or hemoptysis. Review of Systems 2 Review of Systems: Per HPI Physical Exam 2 Physical Exam: VITAL SIGNS Vital signs and nursing notes were reviewed. GENERAL 54-year-old male appearing his stated age who is in no acute distress. Communicates well with provider and answers questions appropriately. SKIN Without rashes or lesions. NOSE Midline and without cyanosis. MOUTH/OROPHARYNX Without perioral cyanosis. NECK Neck with FROM. LUNGS Chest wall evaluation demonstrates normal chest wall A:P diameter. Auscultation reveals coarse breath sounds bilaterally. CARDIAC RRR with S1/S2. No murmur, rubs, or gallops appreciated. EXTREMITIES Nail clubbing not present. No peripheral cyanosis. Moderate pretibial edema present. +3/5 radial palpated throughout. PSYCH A&Ox3 and cooperates fully with examiner. Pt is very pleasant and interacts well with examiner. Skin: no rashes, warm and dry Lymphatic: no cervical or axillary lymphadenopathy Results & Data Results & Data Vital Signs (Past 12 Hours) Vital Signs Temp Pulse Pulse Resp BP Pulse Ox O2 Del Method 11/05/24 08:12 36.7 C 70 20 107/63 94 Nasal Cannula, High Flow Nasal Cannula 11/05/24 07:12 68 18 94 Nasal Cannula 11/05/24 05:41 60 11/05/24 05:05 36.5 C 63 18 98/68 L 97 BiPAP 11/05/24 03:05 59 L 22 94 11/05/24 03:05 59 L 22 94 BiPAP 11/04/24 23:53 36.5 C 63 18 92/63 L 94 BiPAP 11/04/24 23:14 57 L 22 94 11/04/24 22:30 64 23 96 11/04/24 22:30 64 23 96 BiPAP 11/04/24 21:43 69 O2 Flow Rate FiO2 11/05/24 08:12 3 11/05/24 07:12 3.5 11/05/24 05:41 11/05/24 05:05 11/05/24 03:05 35 11/05/24 03:05 35 11/04/24 23:53 11/04/24 23:14 35 11/04/24 22:30 35 11/04/24 22:30 35 11/04/24 21:43 Laboratory Results 11/05/24 06:10 11/05/24 06:10 PG Care Time/CCT Total # of Minutes Spent Total Time Spent with Patient: Total time spent is greater than 50% in coordination of care (as documented) at patient's floor/unit and/or counseling patient: Coding Level of Care Code 61941 SUB INP/OBS CARE 3/50MIN Diagnoses Acute diastolic (congestive) heart failure I50.31 Pulmonary hypertension I27.20 Morbid obesity E66.01 Acute on chronic respiratory failure with hypoxia and hypercapnia J96.21; J96.22 Obesity hypoventilation syndrome E66.2 Multifocal pneumonia J18.9 Parainfluenzal pneumonia J12.2 Elevated hemidiaphragm J98.6
--- NOTE | 2024-11-05 14:08 | Electrocardiogram Report ---
Test Reason : Blood Pressure : */* mmHG Vent. Rate : 62 BPM Atrial Rate : 62 BPM P-R Int : 312 ms QRS Dur : 122 ms QT Int : 452 ms P-R-T Axes : 49 -50 117 degrees QTcB Int : 458 ms Sinus rhythm with 1st degree A-V block Left axis deviation Possible Anterolateral infarct (cited on or before 11-Sep-2018) Inferior infarct (cited on or before 11-Sep-2018) Abnormal ECG When compared with ECG of 03-Nov-2024 12:03, Premature ventricular complexes are no longer Present Confirmed by Scott Anguiano ([id number]) on 11/05/2024 2:08:00 PM Referred By: REFERRED SELF Confirmed By: Scott Anguiano
[2024-11-05] MEDS: LANTUS PER UNIT CHARGE SQ SCH (20:54)
[2024-11-06] MEDS ORDERED: GABAPENTIN 400 MG CAP PO SCH
[2024-11-06 06:22] LABS: Basophils # (auto) 0.04 K/uL (0.00-0.20); Basophils % (auto) 0.5 %; Eosinophils # (auto) 0.02 K/uL (0.00-0.50); Eosinophils % (auto) 0.2 %; Hematocrit (blood only) 48.7 % (42.0-52.0); Hemoglobin 15.9 g/dl (14.0-18.0); Immature Granulocytes # (auto) 0.14 K/uL (0.01-0.20); Immature Granulocytes % (auto) 1.7 %; Lymphocytes # (auto) 2.18 K/uL (1.20-3.40); Lymphocytes % (auto) 26.6 %; Mean Corpuscular Hemoglobin 32.3 pg (25.0-34.0); Mean Corpuscular Hgb Conc 32.6 g/dL (32.0-36.0); Mean Corpuscular Volume 98.8 fL (80.0-100.0); Mean Platelet Volume 9.6 fL (9.4-12.4); Monocytes # (auto) 0.93 K/uL (0.11-0.59); Monocytes % (auto) 11.3 %; Neutrophils % (auto) 59.7 %; Platelet Count 260 K/uL (130-400); RDW Coefficient of Variation 12.5 % (11.5-14.5); RDW Standard Deviation 45.2 fL (36.4-46.3); Red Blood Count 4.93 M/uL (4.70-6.10); White Blood Count 8.21 K/ul (4.8-10.8)
[2024-11-06 06:47] LABS: BUN Creatinine Ratio 78.2 (10-20); Calcium 9.5 mg/dl (8.6-10.3); Potassium 4.2 mmol/L (3.5-5.1)
[2024-11-06] MEDS: LANTUS PER UNIT CHARGE SQ SCH (08:52)
--- NOTE | 2024-11-06 09:22 | Discharge Summary ---
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 History obtained from the patient and associated chart review. Patient endorses a cough and sinus congestion for the past 1 week. He reports that the cough was initially quite productive of yellowish/greenish sputum but has been somewhat less productive over the past 2-3 days. No recent fevers/chills or body aches. He has been using some hnts-hmz-[id number] cold/flu medications at home without significant relief in his sinus congestion. He denies any shortness of breath or trouble breathing. Mentions his appetite has been relatively unchanged and that he has been hydrating well at home. Denies any recent urinary or bowel habit changes. He does endorse some mild fatigue but otherwise has been going about his activities of daily living without much issue. No cigarette smoking history but he does use chewing tobacco on a regular basis; no asthma or COPD history. Of note, patient drinks anywhere from 3-10 beers a night however he has not done so over the past few days due to feeling unwell. He did sustain a laceration to his left pinky finger while skinning a deer yesterday. Admission Exam Per Admitting Provider General: Obese M, vitals as above, NAD, sitting up in bed, pleasant, conversing appropriately. A+Ox3, euthymic affect. HEENT: Normocephalic, atraumatic. Conjunctivae normal, anicteric sclerae. External ear and nose normal, oropharynx normal. Respiratory: Normal respiratory effort, some wheezing heard in L lung base with faint crackles. No accessory muscle use. Cardiovascular: Regular rate, rhythm, normal peripheral pulses, trace BLE edema. Vessels: No JVD. Abdomen/GI: Normal bowel sounds, soft, nontender to palpation in all quadrants. Extremities/Musculoskeletal: No cyanosis or clubbing, extremities motor strength intact, moves all extremities. Neurologic: No overt focal deficits, CN's II-XI not formally tested but appear grossly intact bilaterally. Principal Diagnosis Parainfluenza infection Pneumonia Discharge Exam Constitutional: Awake, oriented x 3; comfortable Respiratory: Decreased breath sounds at bilateral bases Cardiovascular: RRR, no murmur, no edema Vessels: no JVD or carotid bruit Chest: normal inspection of chest Abdomen: normal bowel sounds, soft, nontender, no hepatosplenomegaly Musculoskeletal: no cyanosis or clubbing, extremities motor strength 5/5 Skin: no rashes, warm and dry normal turgor Neurologic: PERRL, EOMI, accommodation nl, no face palsy, no dysarthria CN's II- XI intact bilaterally and moves all extremities Psychiatric: A+Ox3, euthymic affect Discharge Data Allergies Allergy/AdvReac Type Severity Reaction Status Date / Time No Known Allergies Allergy Verified 11/03/24 15:36 Consultations 11/03/24 15:15 ED Decision to Admit Stat 11/04/24 10:47 Consult Pulmonology Routine Ordered Studies 11/03/24 13:22 CT angio chest PE protocol Stat Hospital Course (1) Parainfluenzal pneumonia: (2) Acute respiratory failure with hypoxia: (3) Laceration of finger of left hand: (4) Elevated troponin: Plan Parmjit Vergara is a 54-year-old female with past medical history significant for insulin-requiring DM type II, gout, HTN, 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 Parainfluenzal Pneumonia Acute Respiratory Failure with Hypoxia: Possible Acute on chronic diastolic HF Patient was noted to become hypoxic at 86% SpO2 on RA while undergoing laceration repair in the ED. CTA chest did not show PE; found to have tree-in-bud nodularity compatible with infectious/inflammatory process. During the hospitalization, patient required BiPAP initially and was subsequently weaned off to nasal cannula. He was treated with IV antibiotics and diuretics. Pulmonology was consulted for comanagement. Two-step oxygen evaluation was done at the time of the discharge; patient required 2 L at rest and 3 L on exertion. He was prescribed Augmentin and doxycycline to be taken for 5 more days to complete the antibiotic course. Left 5th Digit Laceration S/P Repair: Patient sustained a laceration to the dorsal aspect of his left fifth digit whilst skinning a deer a day prior to admission. Sutured in the ED. Patient was prescribed 5 more days of antibiotic to complete the course. Patient discharged home with instructions to follow-up with PCP Please note the above document was generated using voice recognition software. It may contain grammatical, syntax or spelling errors. Any formal questions or concerns about the content, text or information contained within the body of this dictation should be directly addressed to the provider for clarification Total Time Total Time Spent Total Time Spent (In Minutes): 34 Total Time Includes: Examination of the Patient, Discharge Planning, Medication Reconciliation, Communication With Other Providers and Other Discharge Plan Discharge Items Patient Disposition: Home - Self-Care Reason For Visit: ACUTE HYPOXIA, PARAINFLUENZAL PNEUMONIA Discharge Diagnosis: Parainfluenza infection Pneumonia Activity: Resume your previous activity Non-emergency contact: Primary Care Provider Call non-emergency contact if: you have any medication questions and your symptoms worsen Follow-up/Referrals: Aislinn Francois PA-C [Primary Care Provider] - (Date & Time 11/12/2024 10:40 AM Provider: Aislinn Francois PA-C [facility] Diet: Regular Addtl Attending Provider Instructions: You were admitted to the hospital due to parainfluenza infection and pneumonia. You are treated with antibiotic during the hospitalization and oxygen. Please use the oxygen as prescribed. You are prescribed following medication; Take Augmentin twice a day for 5 days Take doxycycline twice a day for 5 days Take Mucinex twice a day for 5 days Follow-up with your primary care doctor as scheduled Pending Studies at Discharge: No Stand-Alone Forms: My Chlorogen, Smoking Cessation Medications and DC Order Prescriptions: New guaifenesin [Mucinex] 600 mg Tablet Extended Release 12hr 1,200 mg PO Q12 5 Days Qty: 20 0RF amoxicillin-pot clavulanate 875-125 mg tablet 1 tab PO BID 5 Days Qty: 10 0RF doxycycline hyclate 100 mg capsule 100 mg PO BID 5 Days Qty: 10 0RF Continued bumetanide 2 mg tablet 2 mg PO BID Qty: 180 3RF atorvastatin [Lipitor] 80 mg tablet 80 mg PO HS Qty: 90 3RF lisinopril 20 mg tablet 20 mg PO QAM Qty: 90 3RF potassium chloride 10 mEq capsule, extended release 10 meq PO QAM Qty: 90 3RF metformin 1,000 mg tablet 1,000 mg PO BIDM Qty: 180 3RF lactulose 20 gram/30 mL solution 20 g PO BID PRN (Reason: constipation) Qty: 3000 1RF Rx Instructions: Hold if develop diarrhea or for more than 4 bowel movements in a day. Lantus Solostar U-100 Insulin 100 unit/mL (3 mL) insulin pen 40 unit SUBCUT BID insulin aspart U-100 100 unit/mL (3 mL) insulin pen See Rx Instructions .ROUTE .COMPLEX Rx Instructions: 18 UNITS WITH BREAKFAST 15 UNITS WITH LUNCH 15 UNITS WITH SUPPER PLUS CF: 18 FOR BLOOD SUGAR OVER 130 (UP TO 120 UNITS PER DAY) allopurinol 100 mg tablet 100 mg PO UD Rx Instructions: Take 100mg w/ 300mg to equal 400mg by mouth every morning. gabapentin 100 mg capsule 100 mg PO TID PRN (Reason: Pain) Trulicity 4.5 mg/0.5 mL pen injector 4.5 mg SUBCUT WK Rx Instructions: SATURDAY carvedilol 25 mg tablet 25 mg PO BID clopidogrel [Plavix] 75 mg tablet 75 mg PO QAM allopurinol 300 mg tablet 300 mg PO UD Rx Instructions: Take 300mg w/ 100mg to equal 400mg by mouth every morning. dapagliflozin propanediol [Farxiga] 5 mg Tablet 5 mg PO QAM Discharge Orders: Discharge Order (Routine); Ordered 11/06/24 Ordered By: Roland Reaves/Other Patient Handouts: Managing Type 2 Diabetes Admission Data Admit Date/Time: 11/03/24 15:47 Attending Provider: Roland Chauhan Admit Provider: Herminio Schuler Primary Care Provider: Aislinn Francois Other Providers: Herminio Schuler; Sabra Vásquez Other Interventions: Discharge Summary Assessment (RN) Last Done: 11/06/24 11:57
[2024-11-06 10:43] VITALS: RESP 18
[2024-11-06 11:20] VITALS: BP 113/70; PULSE 69; TEMP 98.1; O2SAT 89
--- NOTE | 2024-11-06 15:53 | Pulmonology Progress Note ---
Date of Service November 06, 2024 Assessment & Plan (1) Acute diastolic (congestive) heart failure: (2) Pulmonary hypertension: (3) Morbid obesity: (4) Acute on chronic respiratory failure with hypoxia and hypercapnia: (5) Obesity hypoventilation syndrome: (6) Multifocal pneumonia: (7) Parainfluenzal pneumonia: (8) Elevated hemidiaphragm: Plan CT chest 11/03/2024 personally reviewed: Elevation of the left hemidiaphragm Opacity appreciated in the lingula, atelectasis of the left lower lobe supradiaphragmatic Fluid in the left fissure Minimal mediastinal and left hilar lymphadenopathy --Acute on chronic chronic hypoxic hypercapnic respiratory failure Patient is not on any benzodiazepines or opioids at home I think the chronic hypercapnia is secondary to LUIS E and OHS on top of diastolic CHF Elevated left hemidiaphragm Pneumonia in the lingula cannot be ruled out Respiratory BioFire positive for parainfluenza 11/03/2024 BNP 323 --LUIS E Polysomnography 07/05/2020: Severe sleep apnea with apnea hypopnea index of 66. Patient's average saturation over the night was 83% with a minimum saturation of 61%. Used to be on auto CPAP at home Last compliance showed mean pressure of 7.8 cm H2O Has not been compliant with CPAP right now --Pulmonary hypertension Likely type II with a component of OHS and LUIS E Continue with treatment as above --Obesity Advised to lose with a diet and exercise Plan: In/out: - 2150, urine output 2500 mL Continue with antibiotics Would recommend diuretics to be given pneumonia on discharge Continue with incentive spirometry Continue with BiPAP/CPAP at bedtime and as needed shortness of breath. Do thing is good to benefit from repeat polysomnography again as an outpatient, as he returned his CPAP. Continue with Mucinex and flutter valve O2 supplementation to keep oxygen saturation between 90-92% Case was discussed with RN at bedside Please note the above document was generated using voice recognition software. It may contain grammatical, syntax or spelling errors.Any formal questions or concerns about the content, text or information contained within the body of this dictation should be directly addressed to the provider for clarification. Admission and Anticipated Discharge Date Admission Date: November 03, 2024 Subjective Patient seen and examined at bedside. He was talking on the phone while standing. Stated that he is feeling much better, shortness of breath is improved Still coughing and bringing up clear phlegm. No hemoptysis Fair appetite, no nausea or vomiting Asking if he could go home Patient was saturating 96% on 2 L, I went down to 1 L Physical Exam 2 Physical Exam: Constitutional: No acute distress HEENT: EOMI, PERRLA Respiratory system: decreased air entry bilaterally, no wheeze, no rhonchi, positive crackles bilateral lower lobes CVS: S1-S2 positive, positive 2 out of 6 systolic murmur appreciated best at aorta Abdomen: Soft, nontender, nondistended, positive bowel sounds x4 Extremities: +2 pulses bilaterally radialis/ dorsalis pedis, no cyanosis, + 1 pitting edema bilateral lower extremity Neuro: Awake alert oriented x3 Psych: Normal mood and affect G/U: Positive Sommer Skin: no rashes, warm and dry Lymphatic: no cervical or axillary lymphadenopathy Results & Data Results & Data Vital Signs (Past 12 Hours) Vital Signs Temp Pulse Pulse Pulse Pulse Pulse Pulse 11/06/24 11:17 36.7 C 69 11/06/24 10:41 76 11/06/24 08:00 70 11/06/24 08:00 11/06/24 08:00 36.5 C 69 11/06/24 07:41 64 71 84 58 L 11/06/24 07:20 66 Resp Resp Resp Resp Resp BP Pulse Ox 11/06/24 11:17 18 113/70 89 L 11/06/24 10:41 18 91 11/06/24 08:00 11/06/24 08:00 11/06/24 08:00 20 142/96 H 97 11/06/24 07:41 20 20 20 18 11/06/24 07:20 22 99 Pulse Ox Pulse Ox Pulse Ox Pulse Ox O2 Del Method O2 Flow Rate O2 Flow Rate 11/06/24 11:17 Room Air 11/06/24 10:41 Room Air 11/06/24 08:00 11/06/24 08:00 High Flow Nasal Cannula 2 11/06/24 08:00 Nasal Cannula 4 11/06/24 07:41 86 L 92 92 86 L 2 11/06/24 07:20 BiPAP O2 Flow Rate O2 Flow Rate O2 Flow Rate FiO2 11/06/24 11:17 11/06/24 10:41 11/06/24 08:00 11/06/24 08:00 11/06/24 08:00 11/06/24 07:41 3 2 2 11/06/24 07:20 35 Laboratory Results 11/06/24 05:45 11/06/24 05:45 PG Care Time/CCT Total # of Minutes Spent Total Time Spent with Patient: Total time spent is greater than 50% in coordination of care (as documented) at patient's floor/unit and/or counseling patient: Coding Level of Care Code 81362 SUB INP/OBS CARE 2/35MIN Diagnoses Acute diastolic (congestive) heart failure I50.31 Pulmonary hypertension I27.20 Morbid obesity E66.01 Acute on chronic respiratory failure with hypoxia and hypercapnia J96.21; J96.22 Obesity hypoventilation syndrome E66.2 Multifocal pneumonia J18.9 Parainfluenzal pneumonia J12.2 Elevated hemidiaphragm J98.6
[2024-11-07] MEDS ORDERED: GABAPENTIN 400 MG CAP PO SCH (12:00)
== END 2024-11-06 13:05 | disposition home or self-care (01) | DRG 193 ==
LOC: ED 10:29 → EDINP 15:47 → SUATTDRO 15:47 → 2E 19:59